=== PATIENT | male | born 1955 | race Caucasian/White ===

== ENCOUNTER → 2018-07-11 12:51 | Outpatient (CLI) | payer OTHER, MEDICAID, SELFPAY ==
--- NOTE | 2018-07-11 12:59 | DI.RAD.S_ITS ---
PROCEDURE: XR CHEST 2V INDICATIONS: shortness of breath TECHNIQUE: 2 views of the chest were acquired. COMPARISON: None. FINDINGS: Surgical changes and devices: None. Lungs and pleura: No pleural effusions or pneumothorax. Lungs are abnormal, with what appears to be dense pneumonia at the right mid and lower lung. No comparison studies are available for review. A component of subpulmonic pleural effusion may be present. Additionally, there is an unusual morphology of the right mediastinal border from the mid chest cephalad. A mass lesion within the lung or mediastinum may be superimposed.. Mediastinum: Mediastinal contours are normal. Heart size is normal. Bones and chest wall: No suspicious bony abnormalities. Soft tissues appear unremarkable. IMPRESSION: Dense consolidation right mid and lower lung, probable subpulmonic significant pleural effusion. Morphology of the right mediastinal border raises a question of whether mass lesion within the lung or mediastinum is present or even whether some form of prior operative procedures such as esophagectomy has been performed. CT scanning with contrast may be warranted depending on the clinical status. As noted above there are no comparison films available to review for this patient. Dictated by: Mitul Mills M.D. on 07/11/2018 at 13:59 Approved by: Mitul Mills M.D. on 07/11/2018 at 14:02
--- NOTE | 2018-08-12 11:28 | ONC.NAV ---
Description: T/C re: care and resource needs Activity: Pt's brother called to request assistance with providing a letter for the [employer] to assist with getting pt's dtr home from the now that pt is on hospice, among other requests. LACE CUTTER called his bridge worker apprentice and asked her to pleases f/u with him with these requests, now that she is helping him with social work needs. Called and left a message for Vlad, the brother, reiterating that the bridge worker apprentice is the person to go to now to assist with these types of needs.
== END ==
PROVIDERS: Visit Provider Physician Assistant
DX: R06.02 Shortness of breath (principal)
CPT/HCPCS: 71046

== ENCOUNTER 2018-07-15 16:24 | Emergency (ER) | payer OTHER, MEDICAID, SELFPAY ==
[2018-07-15 16:28] VITALS: BP 125/77; PULSE 69; RESP 22; TEMP 36.4; O2SAT 96; BMI 24.4
--- NOTE | 2018-07-15 16:32 | DI.RAD.S_ITS ---
PROCEDURE: XR CHEST 2V INDICATIONS: sob TECHNIQUE: 2 views of the chest were acquired. COMPARISON: [facility], CR, XR CHEST 2V, 07/11/2018, 12:57. FINDINGS: Surgical changes and devices: None. Lungs and pleura: Large right-sided pleural effusion is seen with atelectasis of right upper, middle and lower lobes, significantly increased since previous study. Left lung is clear. Mediastinum: Mediastinal contours are normal. Heart size is normal. Bones and chest wall: No suspicious bony abnormalities. Soft tissues appear unremarkable. IMPRESSION: Moderate to large right pleural effusion with atelectasis of right lung significantly increased since previous study. Left lung is clear. Dictated by: Dino Samayoa M.D. on 07/15/2018 at 16:56 Approved by: Dino Samayoa M.D. on 07/15/2018 at 16:57
[2018-07-15 16:48] LABS: Add Manual Diff / Slide Review NO; Basophils Percent Auto 0.6 % (0-2); Eosinophils Percent Auto 1.7 % (2-4); Hematocrit 45.4 % (41-53); Lymphocytes Percent Auto 18.7 % (25-40); Mean Corpuscular HGB Conc 33.1 % (30-36); Mean Corpuscular Hemoglobin 31.9 PG (26-34); Mean Corpuscular Volume 96.2 fL (80-100); Monocytes Percent Auto 10.5 % (3-14); Neutrophils Absolute Auto 8800 /uL (1500-7000); Neutrophils Percent Auto 68.5 % (50-75); Platelet Count 274 X10^3/uL (150-400); Red Blood Cell Count 4.71 X10^6/uL (4.5-5.9); Red Cell Distribution Width 13.1 % (11.6-14.8); White Blood Cell Count 12.8 X10^3/uL (4.5-11.0)
[2018-07-15 17:04] LABS: D Dimer 792 ng/mL (<230)
[2018-07-15 17:05] LABS: BUN Creatinine Ratio 12.1 (6-22); Blood Urea Nitrogen 17 mg/dL (9-20); Calcium 8.8 mg/dL (8.4-10.2); Carbon Dioxide 27 mmol/L (22-32); Chloride 103 mmol/L (98-107); Creatine Kinase 206 U/L (55-170); Estimated Glomerular Filt Rate 51.7 mL/min (>60); Glucose 101 mg/dL (80-110); HEMOLYSIS < 15 (0-50); Potassium 3.6 mmol/L (3.4-5.1); Sodium 140 mmol/L (137-145)
[2018-07-15 17:18] LABS: Troponin I < 0.012 ng/mL (0.01-0.034)
[2018-07-15 17:19] LABS: CKMB % Relative Index 1.3 % (1.5-5.0); Creatine Kinase MB 2.68 ng/mL (<2.37)
[2018-07-15 17:26] LABS: B Type Natriuretic Peptide < 100 (<100)
[2018-07-15 18:00] VITALS: BP 109/66; PULSE 77; RESP 11; O2SAT 96
--- NOTE | 2018-07-15 18:13 | DI.CT.S_ITS ---
PROCEDURE: CT CHEST W CON INDICATIONS: right pleural effuison TECHNIQUE: After the administration of intravenous contrast, 5 mm thick sections acquired from the pulmonary apices to the posterior costophrenic angles. 7 mm thick coronal and sagittal MIP reformats were acquired. For radiation dose reduction, the following was used: automated exposure control, adjustment of mA and/or kV according to patient size. COMPARISON: None. FINDINGS: Image quality: Excellent. Lungs and pleura: The there is a moderate to large right pleural effusion. There are areas of heterogeneous masslike density identified along the medial aspect of the right upper lobe extending into the mediastinum. The overall area of this confluent heterogeneous appearance measures approximately 70 mm AP by 58 mm transverse. This area of confluent mass is causing significant compression and likely potential occlusion and infiltration of the right internal jugular vein as well as mass effect on the proximal left subclavian vein and superior vena cava. Areas of superimposed consolidation is present within the middle and lower lobes. Mediastinum: Heart size is normal. No pericardial effusion. In addition to the above confluent mass extending into the anterior and right mediastinum, there is an anterior right paratracheal mass measuring 39 mm AP by 32 mm transverse. Aorticopulmonary window lymph nodes are also present, the largest measuring 17 mm in short axis. Thoracic aorta and central pulmonary arteries are normal in size. Esophagus is normal in caliber. No hiatal hernia. Bones and chest wall: No suspicious bony lesions. No vertebral body compression fractures. No axillary or supraclavicular adenopathy by size criteria. Thyroid gland is unremarkable. Abdomen: Limited visualization of the upper abdomen demonstrates adenopathy in the aortocaval region with the largest lymph node measuring approximately 20 mm. Otherwise, visualized upper abdominal solid organs appear normal. Upper abdominal bowel loops are normal in caliber. IMPRESSION: 1. Prominant right pleural effusion with right upper lobe heterogeneous appearing mass extending to the mediastinum with vascular compression and suspected infiltration and occlusion as described above. In addition, mediastinal adenopathy is present. Overall appearance is highly concerning for neoplasm with malignant effusion. Dictated by: Dolores Thornton M.D. on 07/15/2018 at 19:23 Approved by: Dolores Thornton M.D. on 07/15/2018 at 19:37
[2018-07-15 18:34] VITALS: BP 116/66; PULSE 75; RESP 19; O2SAT 96
[2018-07-15] MEDS: methylPREDNISolone 125 MG/2 ML VIAL IV (18:48)
[2018-07-15 19:34] VITALS: BP 136/74; PULSE 77; RESP 16; TEMP 36.3; O2SAT 98
[2018-07-15] MEDS: LORazepam 0.5 MG TABLET PO (19:34)
[2018-07-15 20:29] VITALS: BP 108/64; PULSE 74; RESP 18; O2SAT 95
--- NOTE | 2018-07-15 20:38 | ED_ITS ---
HPI - SOB/Dyspnea General Chief Complaint: Shortness of Breath/Dyspnea Stated Complaint: Respiratory distress Time Seen by Provider: 07/15/18 18:06 Source: patient Mode of arrival: ambulatory Limitations: no limitations History of Present Illness Patient is a 62-year-old male who presents with shortness of breath. He says been ongoing since July 07. He was seen and evaluated on July 11 at the walk-in clinic diagnosed with upper respiratory infection. She was started on Levaquin for possible no pneumonia he was encouraged to go to the emergency department for CT of the chest. He has had increasing shortness of breath with exertion. He feels chest heaviness while laying down in certain positions. He fears that he may have cancer. He admits that he smoked for 10 years but has quit. MD Complaint: shortness of breath and cough Related Data Home Medications Medication Instructions Recorded Confirmed No Known Home Medications 07/17/18 07/17/18 Allergies Allergy/AdvReac Type Severity Reaction Status Date / Time pollen extracts Allergy Unknown Verified 07/17/18 15:11 [POLLEN EXTRACTS] Review of Systems Review of Systems GENERAL: Denies chills, fatigue, malaise, fever, sweats, travel HEENT: Denies sinus pain, ear pain, sore throat, difficulty swallowing, neck pain RESPIRATORY: See HPI CARDIOVASCULAR: Denies chest pain, palpitations, orthopnea, edema GASTROINTESTINAL: Denies nausea, vomiting, abdominal pain, diarrhea, constipation, melena. : Denies dysuria, frequency, incontinence, hematuria, urinary retention, flank pain. MUSCULOSKELETAL: Denies weakness, joint pain, or bony pain SKIN: No rash, no erythema, no pruritus NEUROLOGIC: Denies weakness, dizziness, headache, numbness, change in speech, confusion PSYCHIATRIC: No concerning psychosocial issues. 12 point review of systems is negative except for those stated above and HPI [facility] Medical History Patient denies medical problems (Acute) Family History: Reviewed 07/15/18 by KATY Wood Social History Smoking Status: Former smoker Tobacco: How many years used: 10 alcohol intake: never substance use type: does not use Exam Initial Vital Signs Initial Vital Signs: Vital Signs Temperature 97.6 F 07/15/18 16:28 Pulse Rate 69 07/15/18 16:28 Respiratory Rate 22 07/15/18 16:28 Blood Pressure 125/77 07/15/18 16:28 Pulse Oximetry 96 07/15/18 16:28 GENERAL: Well-appearing, well-nourished and in no acute distress. HEENT: Head atraumatic,EOMI, pupils reactive, face symmetric, moist mucous membranes CARDIOVASCULAR: Regular rate and rhythm without murmurs, rubs or gallops. RESPIRATORY: Significantly decreased breath sounds on the right side no respiratory distress speaking in full sentences without difficulty ABDOMEN: Soft, nontender. Normoactive bowel sounds all 4 quadrants. No guarding or rebound.s EXTREMITIES: Normal range of motion, no clubbing or edema. Neurovascularly intact NEUROLOGICAL: Alert and oriented x4.Normal gait and speech. Cranial nerves II through XII grossly intact. SKIN: Warm, dry, no laceration, no petechiae, no rashes or lesions. Course Orders Ordered: Discontinued Medications Lorazepam (Ativan) 0.5 mg PO NOW ONE Stop: 07/15/18 19:06 Last Admin: 07/15/18 19:34 Dose: 0.5 mg Methylprednisolone (Solu-Medrol 125 Mg Vial) 125 mg IV NOW ONE Stop: 07/15/18 18:38 Last Admin: 07/15/18 18:48 Dose: 125 mg Vital Signs - 8 hr 07/15/18 16:28 07/15/18 18:00 07/15/18 18:34 Temperature 97.6 F Pulse Rate 69 77 75 Respiratory Rate 22 11 L 19 Blood Pressure 125/77 Blood Pressure [Left Arm] 109/66 116/66 Blood Pressure [Right Arm] Pulse Oximetry 96 96 96 07/15/18 19:34 07/15/18 20:29 Temperature 97.4 F L Pulse Rate 77 74 Respiratory Rate 16 18 Blood Pressure 136/74 Blood Pressure [Left Arm] Blood Pressure [Right Arm] 108/64 Pulse Oximetry 98 95 MDM - SOB/Dyspnea Medical Records Attestation: I reviewed the patient's medical records. Lab Data Attestation: I reviewed the patient's lab results. Result diagrams: 07/15/18 16:39 07/15/18 16:39 Lab Results 07/15/18 07/15/18 07/15/18 Range/Units 16:39 16:39 16:39 WBC 12.8 H (4.5-11.0) X10^3/uL RBC 4.71 (4.5-5.9) X10^6/uL Hgb 15.0 (13.5-17.5) g/dL Hct 45.4 (41-53) % MCV 96.2 (80-100) fL MCH 31.9 (26-34) PG MCHC 33.1 (30-36) % RDW 13.1 (11.6-14.8) % Plt Count 274 (150-400) X10^3/uL Neut % (Auto) 68.5 (50-75) % Lymph % (Auto) 18.7 L (25-40) % [place] % (Auto) 10.5 (3-14) % Eos % (Auto) 1.7 L (2-4) % Baso % (Auto) 0.6 (0-2) % Neut # (Auto) 8800 H (0843-6343) /uL D-Dimer 792 H (<230) ng/mL Sodium 140 (137-145) mmol/L Potassium 3.6 (3.4-5.1) mmol/L Chloride 103 (98-107) mmol/L Carbon Dioxide 27 (22-32) mmol/L BUN 17 (9-20) mg/dL Creatinine 1.40 H (0.66-1.25) mg/dL Estimated GFR 51.7 L (>60) mL/min BUN/Creatinine Ratio 12.1 (6-22) Glucose 101 (80-110) mg/dL Calcium 8.8 (8.4-10.2) mg/dL Magnesium 2.0 (1.6-2.3) mg/dL Total Creatine Kinase 206 H (55-170) U/L CK-MB (CK-2) 2.68 H (<2.37) ng/mL CK-MB (CK-2) Rel Index 1.3 L (1.5-5.0) % Troponin I < 0.012 (0.01-0.034) ng/mL B-Natriuretic Peptide < 100 (<100) Urine Dip Bedside Urine Glucose Negative Bedside Urine Bilirubin - Negative Bedside Urine Ketone - Negative Urine Specific [place] 1.030 Bedside Urine Occult Blood - Negative Bedside Urine pH 5.5 Bedside Urine Protein +/- 15 Bedside Urine Urobilinogen - Negative Bedside Urine Nitrite - Negative Bedside Urine Leukocytes - Negative Esterase Imaging Data Chest x-ray: Radiologist's impression: PROCEDURE: XR CHEST 2V INDICATIONS: sob TECHNIQUE: 2 views of the chest were acquired. COMPARISON: [facility], , XR CHEST 2V, 07/11/2018, 12:57. FINDINGS: Surgical changes and devices: None. Lungs and pleura: Large right-sided pleural effusion is seen with atelectasis of right upper, middle and lower lobes, significantly increased since previous study. Left lung is clear. Mediastinum: Mediastinal contours are normal. Heart size is normal. Bones and chest wall: No suspicious bony abnormalities. Soft tissues appear unremarkable. IMPRESSION: Moderate to large right pleural effusion with atelectasis of right lung significantly increased since previous study. Left lung is clear. Dictated by: Dino Samayoa M.D. on 07/15/2018 at 16:[address]:: Radiologist's impression: PROCEDURE: CT CHEST W CON INDICATIONS: right pleural effuison TECHNIQUE: After the administration of intravenous contrast, 5 mm thick sections acquired from the pulmonary apices to the posterior costophrenic angles. 7 mm thick coronal and sagittal MIP reformats were acquired. For radiation dose reduction, the following was used: automated exposure control, adjustment of mA and/or kV according to patient size. COMPARISON: None. FINDINGS: Image quality: Excellent. Lungs and pleura: The there is a moderate to large right pleural effusion. There are areas of heterogeneous masslike density identified along the medial aspect of the right upper lobe extending into the mediastinum. The overall area of this confluent heterogeneous appearance measures approximately 70 mm AP by 58 mm transverse. This area of confluent mass is causing significant compression and likely potential occlusion and infiltration of the right internal jugular vein as well as mass effect on the proximal left subclavian vein and superior vena cava. Areas of superimposed consolidation is present within the middle and lower lobes. Mediastinum: Heart size is normal. No pericardial effusion. In addition to the above confluent mass extending into the anterior and right mediastinum, there is an anterior right paratracheal mass measuring 39 mm AP by 32 mm transverse. Aorticopulmonary window lymph nodes are also present, the largest measuring 17 mm in short axis. Thoracic aorta and central pulmonary arteries are normal in size. Esophagus is normal in caliber. No hiatal hernia. Bones and chest wall: No suspicious bony lesions. No vertebral body compression fractures. No axillary or supraclavicular adenopathy by size criteria. Thyroid gland is unremarkable. Abdomen: Limited visualization of the upper abdomen demonstrates adenopathy in the aortocaval region with the largest lymph node measuring approximately 20 mm. Otherwise, visualized upper abdominal solid organs appear normal. Upper abdominal bowel loops are normal in caliber. IMPRESSION: 1. Prominant right pleural effusion with right upper lobe heterogeneous appearing mass extending to the mediastinum with vascular compression and suspected infiltration and occlusion as described above. In addition, mediastinal adenopathy is present. Overall appearance is highly concerning for neoplasm with malignant effusion. Dictated by: Dolores Thornton M.D. on 07/15/2018 at 19:23 ECG Data Attestation: I personally reviewed and interpreted this ECG as follows: Prior ECG tracings: not available for review Interpretation: Normal sinus rhythm rate [address] changes no T-wave inversions ID interval 114 no priors to compare MDM Narrative Medical decision making narrative: Patient has worsening right pleural effusion needs therapeutic and diagnostic thoracentesis. At this time he is hemodynamically stable not requiring oxygen. He is supposed to see Dr. Fam however he has not yet been established. As spoken with Dr. rodríguez, request CT chest will accept patient. Epifanio BURNS in ED to evaluate patient. States that based on CT results he will not accept the patient and states patient needs thoracic surgery consultation. Patient has been updated on CT results. He states he does not want a thoracentesis he does not want surgery he does not want chemo or radiation. He like to go home and put his things in order. He is aware that I am unable to tell him how long he has to live because I do not specifically know what he has or how far advanced but he likely has cancer. He is adamant that he does not want his children to no about his decision. He does not want to suffer through chemotherapy or radiation. He is interested in hospice. I have discussed case with Dr. Chapman for follow-up this week Discharge Plan Departure Patient Disposition: Home Clinical Impression: Pleural effusion on right Discharge Date/Time: 07/15/18 21:30 Interventions: ED Discharge Assessment Last Done: 07/15/18 21:57 Instructions: DI for Lung Cancer Activity Restrictions/Additional Instructions: *You have been diagnosed with right pleural effusion, right-sided lung mass *What to do: It is unknown exactly what to have however cancer is highly likely. Draining the fluid may help relieve some of your symptoms if you choose. *Continue to take medications as directed *Follow up with your primary care provider in 2-3 days *Return to ER if you should have increasing shortness of breath, pain or any new , worsening or concerning symptoms Prescriptions: No Action No Known Home Medications RF: 0 Referrals: Uriel Fam MD [Physician] -
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
[2018-07-15 21:57] VITALS: BP 122/64; PULSE 74; RESP 16; TEMP 36.3; O2SAT 97
== END 2018-07-15 21:30 | disposition home or self-care (01) ==
LOC: ED 18:19 → AC 20:00
PROVIDERS: Emergency Provider Emergency Medicine
DX: J90 Pleural effusion, not elsewhere classified (principal)
CPT/HCPCS: 36591; 71046; 71260; 80048; 81003; 82550; 82553; 83735; 83880; 84484; 85025; 85379; 93005; 93041; 96374; 99285; J2930; Q9967

== ENCOUNTER 2018-07-17 14:48 | Emergency (ER) | payer OTHER, MEDICAID, SELFPAY ==
[2018-07-17 14:57] VITALS: BP 79/61; PULSE 99; RESP 38; TEMP 36.9; O2SAT 90
[2018-07-17 15:00] VITALS: BP 136/81; PULSE 84; RESP 26; O2SAT 98
--- NOTE | 2018-07-17 15:07 | DI.US.S_ITS ---
PROCEDURE: US THORACENTESIS INDICATIONS: large right pleural effusion, dizziness, sob, suspect cancer TECHNIQUE: The indications, alternatives, benefits, risks, and complications of the procedure were explained to the patient. Written informed consent was obtained and placed in the chart. The chest was examined sonographically, and an appropriate site was chosen for thoracentesis. The skin was prepared and draped in the usual sterile fashion, and 1% lidocaine was infiltrated from the skin down through the pleural surface. A 19-gauge catheter-covered needle was then introduced into the pleural space, the catheter was advanced and the needle was withdrawn, and thereafter pleural fluid was aspirated. The catheter was then removed and a dressing was applied. COMPARISON: None. FINDINGS: Access site: Right hemithorax. Needle: One-Step centesis catheter with introducer needle. Fluid volume and description: 2100 mL; bloody Fluid sent for diagnostic testing: Prior orientation Medications: 1% lidocaine for local anaesthesia. Complications: None; post-procedural chest radiograph is pending to assess for pneumothorax. IMPRESSION: Successful ultrasound-guided thoracentesis. Dictated by: Dayne Johnson M.D. on 07/17/2018 at 17:44 Approved by: Dayne Johnson M.D. on 07/17/2018 at 17:45
--- NOTE | 2018-07-17 15:10 | ED_ITS ---
HPI - SOB/Dyspnea General Chief Complaint: Shortness of Breath/Dyspnea Stated Complaint: right side chest states filled with fluid,cant oskar Time Seen by Provider: 07/17/18 15:05 Source: patient Mode of arrival: ambulatory Limitations: no limitations History of Present Illness This is a 62-year-old male who comes to the emergency department with complaint shortness of breath. Patient was here on the diagnosed with a large right pleural effusion and changes on his CT concerning for cancer. This is a brand new diagnosis for the patient. He has had increasing shortness of breath that he really noticed around the and especially on the . Patient is not any fevers. He states he has not had any known medical issues in the past, he was never a tobacco smoker. He states he has not followed regularly with a physician. He seeing Dr. Fam. Today he saw them for follow-up, he was very short of breath and initially when he was here on the and offered thoracentesis he deferred end up going home as he felt that he could make it through to see his physician. Patient gets very winded with even 2 or 3 steps. He denies any chest pain or pressure. He has not had any fevers, no nausea or vomiting. Patient is not on any medications regularly, does not take any blood thinners. Related Data Home Medications Medication Instructions Recorded Confirmed No Known Home Medications 07/17/18 07/17/18 Allergies Allergy/AdvReac Type Severity Reaction Status Date / Time pollen extracts Allergy Unknown Verified 07/17/18 15:11 [POLLEN EXTRACTS] Review of Systems Review of Systems ROS Unobtainable: All systems reviewed & are unremarkable except as noted in HPI and below Constitutional Reports fatigue Cardiovascular Denies chest pain, Denies syncope, Denies edema, Denies leg edema, Reports lightheadedness, Denies radiating jaw, neck or arm pain, Reports dyspnea, Reports dyspnea on exertion and Reports orthopnea Respiratory Denies chest congestion, Denies cough, Reports dyspnea and Reports dyspnea on exertion Gastrointestinal Gastrointestinal: Denies abdominal pain, Denies change in bowel habits, Denies diarrhea, Denies nausea and Denies vomiting Neurologic Denies syncope Endocrine Reports fatigue [facility] Medical History Patient denies medical problems (Acute) Social History Smoking Status: Former smoker Tobacco: How many years used: 10 alcohol intake: never substance use type: does not use Exam Narrative Exam Narrative: GENERAL: Alert and oriented x three, thin, well-appearing male in moderate distress. Patient does appear quite anxious. HEENT: Head normocephalic, atraumatic, EOMI, pupils reactive, face symmetric, moist mucous membranes NECK: Supple, full range of motion CARDIOVASCULAR: Regular rate and rhythm without murmurs, rubs or gallops. No edema bilateral lower extremities. RESPIRATORY: Breath sounds decreased on the right, no wheezes rales or rhonchi. Positive for tachypnea, no accessory muscle use. Patient is able to speak 5- 6 word sentences ABDOMEN: Soft, nontender. Normoactive bowel sounds all 4 quadrants. No guarding or rebound, rigidity, no mass : No CVA tenderness EXTREMITIES: Normal range of motion, no clubbing or edema. Neurovascularly intact NEUROLOGICAL: Cranial nerves II through XII grossly intact. Moving all extremities SKIN: Warm, dry, no petechiae, no rashes or lesions. Initial Vital Signs Initial Vital Signs: Vital Signs Temperature 98.4 F 07/17/18 14:57 Pulse Rate 99 H 07/17/18 14:57 Respiratory Rate 38 H 07/17/18 14:57 Blood Pressure 79/61 L 07/17/18 14:57 Pulse Oximetry 90 L 07/17/18 14:57 Course Orders Ordered: ED Orders 07/17/18 15:05 Consult to Respiratory Therapy Evaluate & Treat 07/17/18 15:06 Basic Metabolic Panel Stat Complete Blood Count AUTO DIFF Stat Partial Thromboplastin Time Stat Prothrombin Time INR Stat 07/17/18 15:07 US thoracentesis Stat 07/17/18 16:47 XR chest 1V Stat 07/17/18 17:31 Amylase Body Fluid Stat Body Fluid Culture Stat Cell Count w Diff Body Fluid Stat Glucose Body Fluid Stat LDH Body Fluid Stat pH Body Fluid Stat Discontinued Medications Morphine Sulfate (Morphine) 2 mg IV NOW ONE Stop: 07/17/18 15:37 Last Admin: 07/17/18 15:37 Dose: 2 mg Vital Signs - 8 hr 07/17/18 14:57 07/17/18 15:00 07/17/18 15:44 Temperature 98.4 F Pulse Rate 99 H 84 88 Respiratory Rate 38 H 26 H 27 H Blood Pressure 79/61 L Blood Pressure [Left Arm] 136/81 118/72 Pulse Oximetry 90 L 98 98 07/17/18 17:32 07/17/18 18:22 Temperature Pulse Rate 74 79 Respiratory Rate 24 22 Blood Pressure Blood Pressure [Left Arm] 120/60 114/61 Pulse Oximetry 94 95 MDM - SOB/Dyspnea Lab Data Attestation: I reviewed the patient's lab results. Result diagrams: 07/17/18 15:06 07/17/18 15:06 Lab Results 07/17/18 07/17/18 07/17/18 Range/Units 15:06 15:06 15:06 WBC 15.9 H (4.5-11.0) X10^3/uL RBC 5.01 (4.5-5.9) X10^6/uL Hgb 16.1 (13.5-17.5) g/dL Hct 47.6 (41-53) % MCV 95.0 (80-100) fL MCH 32.1 (26-34) PG MCHC 33.8 (30-36) % RDW 13.2 (11.6-14.8) % Plt Count 310 (150-400) X10^3/uL Neut % (Auto) 76.7 H (50-75) % Lymph % (Auto) 13.5 L (25-40) % Jessamine % (Auto) 8.6 (3-14) % Eos % (Auto) 0.6 L (2-4) % Baso % (Auto) 0.6 (0-2) % Neut # (Auto) 78198 H (9174-4227) /uL PT 11.8 (10.1-12.7) SECONDS INR 1.0 (0.9-1.3) APTT 31 (26.4-36.2) SECONDS Sodium 138 (137-145) mmol/L Potassium 4.4 (3.4-5.1) mmol/L Chloride 99 (98-107) mmol/L Carbon Dioxide 26 (22-32) mmol/L BUN 19 (9-20) mg/dL Creatinine 1.20 (0.66-1.25) mg/dL Estimated GFR > 60.0 (>60) mL/min BUN/Creatinine Ratio 15.8 (6-22) Glucose 87 (80-110) mg/dL Calcium 9.2 (8.4-10.2) mg/dL Fluid Color Fluid Appearance Fluid pH pH Fluid RBC /uL Fld Tot Nucleated Cell /uL Fluid Polynuclear WBCs % Fluid Mononuclear WBCs % Fluid Eosinophils % Fluid Other Cells % Body Fluid Clot Fluid Glucose mg/dL Fluid LDH U/L Fluid Amylase IU/L 07/17/18 07/17/18 Range/Units 17:31 17:31 WBC (4.5-11.0) X10^3/uL RBC (4.5-5.9) X10^6/uL Hgb (13.5-17.5) g/dL Hct (41-53) % MCV (80-100) fL MCH (26-34) PG MCHC (30-36) % RDW (11.6-14.8) % Plt Count (150-400) X10^3/uL Neut % (Auto) (50-75) % Lymph % (Auto) (25-40) % Jessamine % (Auto) (3-14) % Eos % (Auto) (2-4) % Baso % (Auto) (0-2) % Neut # (Auto) (0739-3223) /uL PT (10.1-12.7) SECONDS INR (0.9-1.3) APTT (26.4-36.2) SECONDS Sodium (137-145) mmol/L Potassium (3.4-5.1) mmol/L Chloride (98-107) mmol/L Carbon Dioxide (22-32) mmol/L BUN (9-20) mg/dL Creatinine (0.66-1.25) mg/dL Estimated GFR (>60) mL/min BUN/Creatinine Ratio (6-22) Glucose (80-110) mg/dL Calcium (8.4-10.2) mg/dL Fluid Color [place] Fluid Appearance Hazy Fluid pH 7.5 pH Fluid RBC 53605 /uL Fld Tot Nucleated Cell 2317 /uL Fluid Polynuclear WBCs 4 % Fluid Mononuclear WBCs 21 % Fluid Eosinophils 0 % Fluid Other Cells 75 % Body Fluid Clot No clots present Fluid Glucose < 20 mg/dL Fluid LDH 5401 U/L Fluid Amylase < 30 IU/L Imaging Data Chest x-ray: Radiologist's impression: [address] [address] XRay Report Signed Patient: Benjie Cowart MR#: [id number] : 1955 Acct:[id number] Age/Sex: 62 / M Date of Service: 07/17/18 Loc: ED Accession Number: [id number] Procedure: XR chest 1V Ordering Provider: Neda Valles D.O. PROCEDURE: XR CHEST 1V INDICATIONS: post-thoracentesis TECHNIQUE: One view of the chest was acquired. COMPARISON: [facility], CR, XR CHEST 2V, 07/11/2018, 12:57. [facility], CR, XR CHEST 2V, 07/15/2018, 16:35. FINDINGS: Surgical changes and devices: None. Lungs and pleura: No pneumothorax. There is a large residual pleural effusion. Mediastinum: Mediastinal contours appear normal. Heart size is normal. Bones and chest wall: No suspicious bony lesions. Overlying soft tissues appear unremarkable. IMPRESSION: No pneumothorax. Dictated by: Dayne Johnson M.D. on 07/17/2018 at 17:24 Approved by: Dayne Johnson M.D. on 07/17/2018 at 17:25 MDM Narrative Medical decision making narrative: Dr. Fam saw the patient today in the office, he called to see if we could arrange thoracentesis or do it herself here in the emergency department. I spoke with Dr. turner they feel they could get him in for ultrasound-guided thoracentesis in the next hour or 2. We reviewed his labs from the 7th he did not have any coags of these were ordered and appear to be in a normal range. Discussed with patient plan for the procedure, possible risks, possible the patient may still need to be admitted. Patient had 2.1 L of bloody effusion removed by Radiology under ultra sound guided thoracentesis. Patient tolerated the procedure well his shortness of breath has improved significantly and he is able to lay down in the bed. He is able to ambulate and his oxygen is in the 93% range without any significant dyspnea. Patient does has some residual effusion which he is aware of. Fluid was sent for cytology and labs. Patient has a follow-up with his primary care doc and a couple days of who sent him here today. He would like to return and has been stable. Patient and I discussed signs and symptoms to watch for and reasons to return. Discharge Plan Departure Patient Disposition: Home Clinical Impression: Pleural effusion on right, Dyspnea Discharge Date/Time: 07/17/18 19:00 Interventions: ED Discharge Assessment Last Done: 07/17/18 19:00 Instructions: DI for Pleural Effusion Activity Restrictions/Additional Instructions: Follow up at your appointment this week with Dr. Fam. The majority of your labs should be back in time for your appointment. Return to the ER for worsening shortness of breath, chest pain, coughing up blood, passing out, persistent vomiting, swelling of her lower extremities, worrisome rash or other new or concerning symptoms. Prescriptions: No Action No Known Home Medications RF: 0 Referrals: Uriel Fam MD [Physician] -
[2018-07-17 15:13] LABS: Add Manual Diff / Slide Review NO; Basophils Percent Auto 0.6 % (0-2); Eosinophils Percent Auto 0.6 % (2-4); Hematocrit 47.6 % (41-53); Hemoglobin 16.1 g/dL (13.5-17.5); Lymphocytes Percent Auto 13.5 % (25-40); Mean Corpuscular HGB Conc 33.8 % (30-36); Mean Corpuscular Hemoglobin 32.1 PG (26-34); Monocytes Percent Auto 8.6 % (3-14); Neutrophils Absolute Auto 12200 /uL (1500-7000); Neutrophils Percent Auto 76.7 % (50-75); Platelet Count 310 X10^3/uL (150-400); Red Blood Cell Count 5.01 X10^6/uL (4.5-5.9); Red Cell Distribution Width 13.2 % (11.6-14.8); White Blood Cell Count 15.9 X10^3/uL (4.5-11.0)
--- NOTE | 2018-07-17 15:13 | PC.NURSE ---
Pt initially hypotensive after exertion. BP repeated and validated. Pt rested on stretcher, resp distress improved w/ oxygen and rest. Very anxious. States he has been having panic attacks. Sitting in high fowlers. BP improved w/o intervention.
[2018-07-17 15:23] LABS: Prothrombin Time 11.8 SECONDS (10.1-12.7)
[2018-07-17 15:26] LABS: PTT Partial Thromboplastin Tim 31 SECONDS (26.4-36.2)
[2018-07-17 15:33] LABS: BUN Creatinine Ratio 15.8 (6-22); Blood Urea Nitrogen 19 mg/dL (9-20); Calcium 9.2 mg/dL (8.4-10.2); Carbon Dioxide 26 mmol/L (22-32); Chloride 99 mmol/L (98-107); Estimated Glomerular Filt Rate > 60.0 mL/min (>60); Glucose 87 mg/dL (80-110); HEMOLYSIS 15 (0-50); Potassium 4.4 mmol/L (3.4-5.1); Sodium 138 mmol/L (137-145)
[2018-07-17] MEDS: MORPHINE 2 MG/ML INJ IV (15:37)
[2018-07-17 15:44] VITALS: BP 118/72; PULSE 88; RESP 27; O2SAT 98
--- NOTE | 2018-07-17 16:47 | DI.RAD.S_ITS ---
PROCEDURE: XR CHEST 1V INDICATIONS: post-thoracentesis TECHNIQUE: One view of the chest was acquired. COMPARISON: [facility], CR, XR CHEST 2V, 07/11/2018, 12:57. [facility], CR, XR CHEST 2V, 07/15/2018, 16:35. FINDINGS: Surgical changes and devices: None. Lungs and pleura: No pneumothorax. There is a large residual pleural effusion. Mediastinum: Mediastinal contours appear normal. Heart size is normal. Bones and chest wall: No suspicious bony lesions. Overlying soft tissues appear unremarkable. IMPRESSION: No pneumothorax. Dictated by: Dayne Johnson M.D. on 07/17/2018 at 17:24 Approved by: Dayne Johnson M.D. on 07/17/2018 at 17:25
--- NOTE | 2018-07-17 16:48 | PC.NURSE ---
1640: Patient to Radiology for thoracentesis.
--- NOTE | 2018-07-17 16:54 | PATH_ITS ---
Note [facility] Accession Number: [id number] TESTS RESULT FLAG UNITS REF RANGE LAB Clinician Provided Cytology Information No. of containers..01 Other (Miscellaneous) [A] 01 PLEURAL FLUID DIAGNOSIS: [A] 02 PLEURAL FLUID POSITIVE FOR MALIGNANT CELLS. IMMUNOHISTOCHEMISTRY STUDIES PENDING FOR FURTHER CHARACTERIZATION; RESULTS WILL BE REPORTED AN ADDENDUM. COMMENT: Results were discussed with Dr. Fam on 07-19-18 at approximately 1:30 p.m. Pathologist ICD10: 02 R91.8 02 Clarice Velasquez MD, Pathologist NPI- [id number] López Chi, Accessories Repairer ([facility]) 01 70 CC, RED, CLOUDY /LCS FLAG LEGEND: L-Low Normal,H-High Normal,LL-Alert Low,HH-Alert High <-Panic Low,>-Panic High,A-Abnormal,AA-Critical Abnormal Performed at: 01 =Z [facility] [address], [place] [address] Tani Galeana MD, 02 LCLWA [facility] [address] [place] [id number] Pina Jernigan MD, Performed at: 01 [facility] [address], [place], [place] [id number] MD Tani Galeana MD Phone: [phone]
--- NOTE | 2018-07-17 17:24 | PATH_ITS ---
Specimen ID: [id number] Control ID: [id number] [facility] PATHOLOGY ONLY [address] [facility] [address] JULIANA JOE [address] [facility] [id number] Patient Details : 1955 Age(y/m/d): Gender: M SSN: [id number] Specimen Details Date collected: 07/17/2018 1724 Local Date received: 07/18/2018 Date entered: 07/18/2018 Date reported: 07/25/2018 1706 ET Physician Details Ordering: Liliane ALVARENGA Referring: ID: [id number] NPI: Tests Ordered: Pleural Fluid Cytology; Fax Report; 91519 Surg Path-1st Site; Please note; IHC 1st AB Stain x1 GLBL; IHC 1st AB Stain x25 GLBL Clinician Provided ICD Code(s) & Clinical History: Clinician Provided Cytology Information: Source: PLEURAL FLUID Number of Containers:01 Other (Miscellaneous) ACC: [id number] PID: [id number] Diagnosis: (02) PLEURAL FLUID POSITIVE FOR MALIGNANT CELLS. IMMUNOHISTOCHEMISTRY STUDIES PENDING FOR FURTHER CHARACTERIZATION; RESULTS WILL BE REPORTED AN ADDENDUM. COMMENT: Results were discussed with Dr. Fam on 07-19-18 at approximately 1:30 p.m. 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 Please see comment. ADDENDUM COMMENT: RESULTS: MANDI: Negative. CK7: Negative. CK 5/6: Negative. Calretinin: Negative. WT1: Negative. D2-40: Negative. SOX10: Negative. Melan-A: Negative. CD45: Negative. Comments: (continued) (02),(03) ADDENDUM: (continued) CK20: Negative. Napsin-A: Negative. TTF1: Negative. P40: Negative. Tyler-EP4: Negative. PAX8: Negative. CD43: Negative. CD20: Negative. ALK: Negative. ERG1: Negative. CD117: Negative. Desmin: Negative. CD31: Rare cells positive. CD138: Focally positive. CD34: Variably positive. ARIANNA-4: Focally positive. OCT3/4: Equivocal. S-100: Negative. By immunohistochemistry, the malignant cells are not of melanoma, carcinoma, neural, mesothelial, or lymphoma origin. The malignant cells are focally and variably immunopositive for CD138, CD31, CD34, and ARIANNA-4. OCT3/ 4 staining is equivocal. Although not definitive by this study, the differential diagnosis includes an epithelioid vascular neoplasm and possibly a germ cell tumor. Tissue sampling is recommended for further characterization. These studies were reviewed and interpretted by my colleague, Dr. Viola Loaiza. Message left with Dr. Fam's office on 07-25-18 at approximately 1:15 p.m. * This test was developed and its performance characteristics determined by [employer]. It has not been cleared or approved by the U.S. Food and Drug Administration. The FDA has determined that such clearance or approval is not necessary. This test is used for clinical purposes. It should not be regarded as investigational or for research. MRV/07/25/2018 Addendum Electronically Signed by Clarice Velasquez MD, Pathologist [id number] A duplicate report has been generated due to demographic update of the patient' s Date of , Age, Gender, and/or Specimen Date. Please review patient results, reference intervals, and calculated results that may have been affected by this change. Please note The date and/or time of collection was not indicated on the requisition as required by state and federal law. The date of receipt of the specimen was used as the collection date if not supplied. Performed by () López Chi, Clinical Secretary (ASCP) Electronically signed by (02) Clarice Velasquez MD, Pathologist NPI- [id number]
[2018-07-17 17:32] VITALS: BP 120/60; PULSE 74; RESP 24; O2SAT 94
[2018-07-17 17:43] LABS: pH Body Fluid 7.5 pH
--- NOTE | 2018-07-17 17:43 | PC.NURSE ---
Patient back from thoracentesis. States his anxiety is gone, breathing slightly better. Oxygen saturation on room air is 94%. Will continue to monitor.
[2018-07-17 17:45] LABS: Body Fluid Red Blood Cells 32744 /uL; Body Fluid Tot Nucleated Cells 2317 /uL
[2018-07-17 17:48] LABS: Amylase Body Fluid < 30 IU/L; Glucose Body Fluid < 20 mg/dL
[2018-07-17 18:06] LABS: LDH Body Fluid 5401 U/L
[2018-07-17 18:11] LABS: Body Fluid Color PINK
[2018-07-17 18:12] LABS: Body Fluid Appearance HAZY; Body Fluid Clotted? NO CLOTS PRESENT; Eosinophils Body Fluid 0 %; Mononuclear WBC Body Fluid 21 %; Polynuclear WBC Body Fluid 4 %
[2018-07-17 18:13] LABS: Other Cells Body Fluid 75 %
[2018-07-17 18:22] VITALS: BP 114/61; PULSE 79; RESP 22; O2SAT 95
== END 2018-07-17 19:00 | disposition home or self-care (01) ==
PROVIDERS: Emergency Provider Emergency Medicine
DX: R06.00 Dyspnea, unspecified (principal)
CPT/HCPCS: 32555; 36591; 71045; 80048; 82150; 82945; 83615; 83986; 85025; 85610; 85730; 87070; 87075; 87205; 89051; 96374; 99283; 99284; J2270

== ENCOUNTER 2018-07-22 04:54 | Inpatient (IN) | payer OTHER, MEDICAID, SELFPAY ==
[2018-07-22] VITALS (23 sets, daily range): BP systolic 91–170; BP diastolic 57–142; PULSE 65–96; RESP 17–28; TEMP 36.6–36.8; O2SAT 88–100; BMI 24.4
--- NOTE | 2018-07-22 | DI.US.S_ITS ---
PROCEDURE: US THORACENTESIS INDICATIONS: RIGHT PLEURAL EFFUSION TECHNIQUE: The indications, alternatives, benefits, risks, and complications of the procedure were explained to the patient. Written informed consent was obtained and placed in the chart. The chest was examined sonographically, and an appropriate site was chosen for thoracentesis. The skin was prepared and draped in the usual sterile fashion, and 1% lidocaine was infiltrated from the skin down through the pleural surface. A 19-gauge catheter-covered needle was then introduced into the pleural space, the catheter was advanced and the needle was withdrawn, and thereafter pleural fluid was aspirated. The catheter was then removed and a dressing was applied. COMPARISON: [facility], THORACENTESIS, 07/17/2018, 16:46. FINDINGS: Access site: Right Needle: One-Step centesis catheter with introducer needle. Fluid volume and description: 2000 cc, dark old blood tinged fluid Fluid sent for diagnostic testing: Not requested, previously performed recently. Medications: 1% lidocaine for local anaesthesia. Complications: None; post-procedural chest radiograph is pending to assess for pneumothorax. IMPRESSION: Successful ultrasound-guided thoracentesis. Dictated by: Mitul Mills M.D. on 07/23/2018 at 10:12 Approved by: Mitul Mills M.D. on 07/23/2018 at 10:16
--- NOTE | 2018-07-22 04:56 | ED_ITS ---
HPI - SOB/Dyspnea <Mark Peterson DO - Last Filed: 07/22/18 18:14> General Chief Complaint: Shortness of Breath/Dyspnea Stated Complaint: DIFFICULTY BREATHING Time Seen by Provider: 07/22/18 04:55 Source: patient Mode of arrival: ambulatory Limitations: no limitations History of Present Illness Patient is a 62-year-old male with known lung malignancy. She was diagnosed within the past week. Has not seen an oncologist. Has had 1 appointment with his new primary doctor. He was scheduled for a CT scan of his abdomen pelvis to further evaluate for possible metastasis later today. He states that over the past couple days he has become progressively short of breath. Patient was seen here in the emergency department within the past week with a right-sided pleural effusion. This was drained under ultrasound guidance by Radiology. He states that his symptoms are now back and potentially even worse than before. He states he would not be able to lay flat for the CT scan. He also states he is having quite a bit of anxiety and discomfort. Related Data Home Medications Medication Instructions Recorded Confirmed diazepam 5 mg PO Q6H PRN 07/22/18 07/22/18 Allergies Allergy/AdvReac Type Severity Reaction Status Date / Time pollen extracts Allergy Unknown Verified 07/17/18 15:11 [POLLEN EXTRACTS] Iodinated Contrast- Oral and AdvReac Vomiting Verified 07/22/18 10:16 IV Dye <Neda Valles DO - Last Filed: 07/22/18 18:36> History of Present Illness This a 8-year-old male known to myself from recent ER visit for shortness of breath. Patient has suspected malignancy with malignant cells on his last fluid analysis from his thoracentesis on July 17. Patient returns today with worsening shortness of breath. He has a known large pleural effusion. Patient has had any fevers, he has not had any syncope. He saw Dr. Fam, his primary care physician who ordered a CT of the chest abdomen pelvis which was supposed to be done this morning for further evaluation his malignancy. Patient has follow-up on Sunday with him. Review of Systems <Mark Peterson DO - Last Filed: 07/22/18 18:14> Constitutional Denies fever(s) Cardiovascular Reports chest pain, Denies leg edema, Reports dyspnea and Reports orthopnea Respiratory Denies cough and Reports dyspnea Gastrointestinal Gastrointestinal: Denies abdominal pain Musculoskeletal Denies myalgias and Denies arthralgias Integumentary/Breasts Denies rash Psychiatric Reports anxiety Hematologic/Lymphatic Comments: Not on anticoagulation Allergic/Immunologic Denies urticaria Exam <Mark Peterson, DO - Last Filed: 07/22/18 18:14> Initial Vital Signs Initial Vital Signs: Vital Signs Pulse Rate 96 H 07/22/18 05:11 Respiratory Rate 24 07/22/18 05:11 Blood Pressure 170/142 H 07/22/18 05:11 Pulse Oximetry 95 07/22/18 05:11 Const General: cooperative, No comfortable (Uncomfortable) and anxious Orientation: alert, awake and oriented x3 HENMT Head: normal to inspection and normocephalic Resp Effort & Inspection: not labored and no respiratory distress Auscultation: diminished lung sounds on the right Cardio Rate: regular rate Rhythm: regular rhythm Pulses: radial pulses present Skin Lesions: no lesions Rashes: no rashes Neuro General: alert, awake and oriented x3 Extrem General: normal to inspection and capillary refill normal Psych Appearance: grossly normal and well kempt Affect: anxious affect <Neda Valles, DO - Last Filed: 07/22/18 18:36> Narrative Exam Narrative: GENERAL: Alert and oriented x three, thin, well-appearing male in moderate distress. HEENT: Head normocephalic, atraumatic, EOMI, pupils reactive, face symmetric, moist mucous membranes NECK: Supple, full range of motion CARDIOVASCULAR: Regular rate and rhythm without murmurs, rubs or gallops. RESPIRATORY: Breath sounds absent on the right, normal breath sounds on the left with no crackles rales or rhonchi. Patient has a healed puncture wounds from prior thoracenteses on his right posterior back. ABDOMEN: Soft, nontender. Normoactive bowel sounds all 4 quadrants. No guarding or rebound, rigidity, no mass EXTREMITIES: Normal range of motion, no clubbing or edema. Neurovascularly intact NEUROLOGICAL: Cranial nerves II through XII grossly intact. Moving all extremities SKIN: Warm, dry, no petechiae, no rashes or lesions. Initial Vital Signs Initial Vital Signs: Vital Signs Pulse Rate 96 H 07/22/18 05:11 Respiratory Rate 24 07/22/18 05:11 Blood Pressure 170/142 H 07/22/18 05:11 Pulse Oximetry 95 07/22/18 05:11 <Neda Valles, DO - Last Filed: 07/22/18 18:36> [facility] [place] Procedure Name of Procedure: PROCEDURE: Thoracentesis, U/S guided. INDICATION: Large pleural effusion, symptomatic and diagnositic PROCEDURE SHIP PILOT: Dr. Valles CONSENT: Consent was obtained from the patient prior to the procedure. Indications, risks, and benefits were explained at length. PROCEDURE SUMMARY: A time out was performed. The patient was prepped and draped in a sterile manner using chlorhexidine scrub after the appropriate level was confirmed by ultrasound. 1% lidocaine was used to numb the region. Needle was advanced without any blood back. Reddish yellow fluid was aspirated The patient had 1750 mL of fluid removed. No immediate complications were noted during the procedure. A post-procedure xray was ordered. The fluid will be sent for studies. ESTIMATED BLOOD LOSS: 5m Complications: None Chest xray-mild improvement but patient continues to have very large right pleural effusion, no pneumothorax appreciated Course <Mark Peterson, DO - Last Filed: 07/22/18 18:14> Orders Ordered: ED Orders 07/22/18 09:38 XR chest 1V Stat 07/22/18 09:42 Comprehensive Metabolic Panel Stat 07/22/18 10:38 CT chest abd pel w con Stat 07/23/18 05:00 Basic Metabolic Panel Routine Complete Blood Count AUTO DIFF Routine Lorazepam (Ativan) 1 mg PO Q4HR PRN PRN Reason: Anxiety Morphine Sulfate (Morphine) 4 mg IV Q4HR PRN PRN Reason: Shortness Of Breath Discontinued Medications Diphenhydramine HCl (Benadryl) 25 mg IV NOW ONE Stop: 07/22/18 09:53 Last Admin: 07/22/18 10:06 Dose: 25 mg Lorazepam (Ativan) 0.5 mg PO NOW ONE Stop: 07/22/18 06:14 Last Admin: 07/22/18 06:14 Dose: 0.5 mg Morphine Sulfate (Morphine) 4 mg IV NOW ONE Stop: 07/22/18 08:25 Last Admin: 07/22/18 08:35 Dose: 4 mg Morphine Sulfate (Morphine) 4 mg IV NOW ONE Stop: 07/22/18 11:12 Last Admin: 07/22/18 11:17 Dose: 4 mg Morphine Sulfate (Morphine) 4 mg IV NOW ONE Stop: 07/22/18 14:40 Last Admin: 07/22/18 14:44 Dose: 4 mg Vital Signs - 8 hr 07/22/18 10:35 07/22/18 11:00 07/22/18 11:30 Temperature Pulse Rate 71 74 78 Respiratory Rate 24 Blood Pressure Blood Pressure [Left Arm] 116/73 123/77 119/77 Pulse Oximetry 95 94 07/22/18 12:00 07/22/18 12:10 07/22/18 12:35 Temperature Pulse Rate 78 65 Respiratory Rate 24 Blood Pressure Blood Pressure [Left Arm] 117/76 120/57 L Pulse Oximetry 94 91 07/22/18 13:00 07/22/18 13:30 07/22/18 14:30 Temperature Pulse Rate 79 80 71 Respiratory Rate Blood Pressure Blood Pressure [Left Arm] 91/62 109/58 L Pulse Oximetry 91 94 07/22/18 14:55 07/22/18 14:58 07/22/18 16:39 Temperature Pulse Rate 94 H 88 79 Respiratory Rate 18 Blood Pressure Blood Pressure [Left Arm] 130/79 Pulse Oximetry 88 L 96 99 07/22/18 16:50 Temperature 97.8 F Pulse Rate 88 Respiratory Rate 19 Blood Pressure 105/70 Blood Pressure [Left Arm] Pulse Oximetry 95 <Neda Valles, - Last Filed: 07/22/18 18:36> Orders Ordered: ED Orders 07/22/18 09:38 XR chest 1V Stat 07/22/18 09:42 Comprehensive Metabolic Panel Stat 07/22/18 10:38 CT chest abd pel w con Stat 07/23/18 05:00 Basic Metabolic Panel Routine Complete Blood Count AUTO DIFF Routine Lorazepam (Ativan) 1 mg PO Q4HR PRN PRN Reason: Anxiety Morphine Sulfate (Morphine) 4 mg IV Q4HR PRN PRN Reason: Shortness Of Breath Discontinued Medications Diphenhydramine HCl (Benadryl) 25 mg IV NOW ONE Stop: 07/22/18 09:53 Last Admin: 07/22/18 10:06 Dose: 25 mg Lorazepam (Ativan) 0.5 mg PO NOW ONE Stop: 07/22/18 06:14 Last Admin: 07/22/18 06:14 Dose: 0.5 mg Morphine Sulfate (Morphine) 4 mg IV NOW ONE Stop: 07/22/18 08:25 Last Admin: 07/22/18 08:35 Dose: 4 mg Morphine Sulfate (Morphine) 4 mg IV NOW ONE Stop: 07/22/18 11:12 Last Admin: 07/22/18 11:17 Dose: 4 mg Morphine Sulfate (Morphine) 4 mg IV NOW ONE Stop: 07/22/18 14:40 Last Admin: 07/22/18 14:44 Dose: 4 mg Vital Signs - 8 hr 07/22/18 10:35 07/22/18 11:00 07/22/18 11:30 Temperature Pulse Rate 71 74 78 Respiratory Rate 24 Blood Pressure Blood Pressure [Left Arm] 116/73 123/77 119/77 Pulse Oximetry 95 94 07/22/18 12:00 07/22/18 12:10 07/22/18 12:35 Temperature Pulse Rate 78 65 Respiratory Rate 24 Blood Pressure Blood Pressure [Left Arm] 117/76 120/57 L Pulse Oximetry 94 91 07/22/18 13:00 07/22/18 13:30 07/22/18 14:30 Temperature Pulse Rate 79 80 71 Respiratory Rate Blood Pressure Blood Pressure [Left Arm] 91/62 109/58 L Pulse Oximetry 91 94 07/22/18 14:55 07/22/18 14:58 07/22/18 16:39 Temperature Pulse Rate 94 H 88 79 Respiratory Rate 18 Blood Pressure Blood Pressure [Left Arm] 130/79 Pulse Oximetry 88 L 96 99 07/22/18 16:50 Temperature 97.8 F Pulse Rate 88 Respiratory Rate 19 Blood Pressure 105/70 Blood Pressure [Left Arm] Pulse Oximetry 95 MDM - SOB/Dyspnea <Mark Peterson DO - Last Filed: 07/22/18 18:14> Lab Data Result diagrams: 07/22/18 08:46 07/22/18 09:42 Lab Results 07/22/18 07/22/18 07/22/18 Range/Units 08:46 08:46 08:46 WBC 18.5 H (4.5-11.0) X10^3/uL RBC 4.83 (4.5-5.9) X10^6/uL Hgb 15.3 (13.5-17.5) g/dL Hct 46.0 (41-53) % MCV 95.2 (80-100) fL MCH 31.7 (26-34) PG MCHC 33.3 (30-36) % RDW 13.1 (11.6-14.8) % Plt Count 269 (150-400) X10^3/uL Neut % (Auto) 78.2 H (50-75) % Lymph % (Auto) 10.1 L (25-40) % [place] % (Auto) 10.2 (3-14) % Eos % (Auto) 1.0 L (2-4) % Baso % (Auto) 0.5 (0-2) % Neut # (Auto) 10240 H (2029-9106) /uL Lymph # (Auto) 1900 (1939-5505) /uL [place] # (Auto) 1900 H (0-900) /uL Eos # (Auto) 200 (0-450) /uL Baso # (Auto) 100 (0-100) /uL PT 12.0 (10.1-12.7) SECONDS INR 1.0 (0.9-1.3) APTT 21 L D (26.4-36.2) SECONDS Sodium Cancelled Potassium Cancelled Chloride Cancelled Carbon Dioxide Cancelled BUN Cancelled Creatinine Cancelled Estimated GFR Cancelled BUN/Creatinine Ratio Cancelled Glucose Cancelled Calcium Cancelled Total Bilirubin Cancelled AST Cancelled ALT Cancelled Alkaline Phosphatase Cancelled Total Protein Cancelled Albumin Cancelled Globulin Cancelled Albumin/Globulin Ratio Cancelled Specimen Hemolysis Cancelled 07/22/18 Range/Units 09:42 WBC (4.5-11.0) X10^3/uL RBC (4.5-5.9) X10^6/uL Hgb (13.5-17.5) g/dL Hct (41-53) % MCV (80-100) fL MCH (26-34) PG MCHC (30-36) % RDW (11.6-14.8) % Plt Count (150-400) X10^3/uL Neut % (Auto) (50-75) % Lymph % (Auto) (25-40) % [place] % (Auto) (3-14) % Eos % (Auto) (2-4) % Baso % (Auto) (0-2) % Neut # (Auto) (0368-2024) /uL Lymph # (Auto) (1916-6020) /uL [place] # (Auto) (0-900) /uL Eos # (Auto) (0-450) /uL Baso # (Auto) (0-100) /uL PT (10.1-12.7) SECONDS INR (0.9-1.3) APTT (26.4-36.2) SECONDS Sodium 131 L Potassium 4.9 Chloride 96 L Carbon Dioxide 25 BUN 20 Creatinine 1.10 Estimated GFR > 60.0 BUN/Creatinine Ratio 18.2 Glucose 89 Calcium 8.8 Total Bilirubin 1.1 AST 33 ALT 29 Alkaline Phosphatase 70 Total Protein 6.5 Albumin 3.5 Globulin 3.0 Albumin/Globulin Ratio 1.2 Specimen Hemolysis Imaging Data Chest x-ray: Attestation: I personally reviewed and interpreted this imaging study as follows: My impression: Right-sided pleural effusion ECG Data Attestation: I personally reviewed and interpreted this ECG as follows: Prior ECG tracings: not available for review Interpretation: Sinus rhythm Ventricular rate in 90 Occasional PVC QRS QTC next ST T wave changes <Neda Valles DO - Last Filed: 07/22/18 18:36> Lab Data Attestation: I reviewed the patient's lab results. Lab Results 07/22/18 07/22/18 07/22/18 Range/Units 08:46 08:46 08:46 WBC 18.5 H (4.5-11.0) X10^3/uL RBC 4.83 (4.5-5.9) X10^6/uL Hgb 15.3 (13.5-17.5) g/dL Hct 46.0 (41-53) % MCV 95.2 (80-100) fL MCH 31.7 (26-34) PG MCHC 33.3 (30-36) % RDW 13.1 (11.6-14.8) % Plt Count 269 (150-400) X10^3/uL Neut % (Auto) 78.2 H (50-75) % Lymph % (Auto) 10.1 L (25-40) % [place] % (Auto) 10.2 (3-14) % Eos % (Auto) 1.0 L (2-4) % Baso % (Auto) 0.5 (0-2) % Neut # (Auto) 31285 H (6861-2971) /uL Lymph # (Auto) 1900 (5622-0221) /uL [place] # (Auto) 1900 H (0-900) /uL Eos # (Auto) 200 (0-450) /uL Baso # (Auto) 100 (0-100) /uL PT 12.0 (10.1-12.7) SECONDS INR 1.0 (0.9-1.3) APTT 21 L D (26.4-36.2) SECONDS Sodium Cancelled Potassium Cancelled Chloride Cancelled Carbon Dioxide Cancelled BUN Cancelled Creatinine Cancelled Estimated GFR Cancelled BUN/Creatinine Ratio Cancelled Glucose Cancelled Calcium Cancelled Total Bilirubin Cancelled AST Cancelled ALT Cancelled Alkaline Phosphatase Cancelled Total Protein Cancelled Albumin Cancelled Globulin Cancelled Albumin/Globulin Ratio Cancelled Specimen Hemolysis Cancelled 07/22/18 Range/Units 09:42 WBC (4.5-11.0) X10^3/uL RBC (4.5-5.9) X10^6/uL Hgb (13.5-17.5) g/dL Hct (41-53) % MCV (80-100) fL MCH (26-34) PG MCHC (30-36) % RDW (11.6-14.8) % Plt Count (150-400) X10^3/uL Neut % (Auto) (50-75) % Lymph % (Auto) (25-40) % [place] % (Auto) (3-14) % Eos % (Auto) (2-4) % Baso % (Auto) (0-2) % Neut # (Auto) (6540-5829) /uL Lymph # (Auto) (0366-2114) /uL [place] # (Auto) (0-900) /uL Eos # (Auto) (0-450) /uL Baso # (Auto) (0-100) /uL PT (10.1-12.7) SECONDS INR (0.9-1.3) APTT (26.4-36.2) SECONDS Sodium 131 L Potassium 4.9 Chloride 96 L Carbon Dioxide 25 BUN 20 Creatinine 1.10 Estimated GFR > 60.0 BUN/Creatinine Ratio 18.2 Glucose 89 Calcium 8.8 Total Bilirubin 1.1 AST 33 ALT 29 Alkaline Phosphatase 70 Total Protein 6.5 Albumin 3.5 Globulin 3.0 Albumin/Globulin Ratio 1.2 Specimen Hemolysis Imaging Data Chest x-ray: Radiologist's impression: [address] [address] XRay Report Signed Patient: Benjie Cowart MR#: [id number] : 1955 Acct:[id number] Age/Sex: 62 / M Date of Service: 07/22/18 Loc: ED Accession Number: [id number] Procedure: XR chest 1V Ordering Provider: Neda Valles D.O. PROCEDURE: XR CHEST 1V INDICATIONS: post thoracentesis TECHNIQUE: One view of the chest was acquired. COMPARISON: [facility], CT, CT CHEST W CON, 07/15/2018, 18:51. [facility], US, US THORACENTESIS, 07/17/2018, 16:46. [facility], , US CHEST, 07/22/2018, 8 :20. [facility], CR, XR CHEST 1V, 07/17/2018, 17:05. [facility], CR, XR CHEST 1V, 07/22/2018, 5:53. FINDINGS: Surgical changes and devices: None. Lungs and pleura: No pneumothorax is seen. There remains a large right-sided pleural effusion. The right lung is slightly better aerated on current study than on the prior. The left lung appears clear. Mediastinum: Cardiac and mediastinal silhouettes are partially obscured, yet are regarded to be stable. Bones and chest wall: Age-appropriate bony degenerative changes are seen. No suspicious bony lesions. Overlying soft tissues appear unremarkable. IMPRESSION: No pneumothorax. Slightly better aerated right lung. Large right sided pleural effusion remaining. Dictated by: Darenll Grant M.D. on 07/22/2018 at 9:12 Approved by: Darnell Grant M.D. on 07/22/2018 at 9:14 CT chest/abd/pelvis: Radiologist's impression: [address] [address] [address] Scan Report Signed Patient: Benjie Cowart MR#: [id number] : 1955 Acct:[id number] Age/Sex: 62 / M Date of Service: 07/22/18 Loc: ED Accession Number: [id number] Procedure: CT chest abd pel w con Ordering Provider: Neda Valles D.O. PROCEDURE: CT CHEST ABD PEL W CON INDICATIONS: malignancy, unknown source, short of breath, large effusion TECHNIQUE: After the administration of oral and intravenous contrast, 5 mm thick sections acquired from the lung apices to the symphysis. 5 mm coronal and sagittal reformats were performed, with additional 7 mm coronal MIP reformats through the lungs. For radiation dose reduction, the following was used: automated exposure control, adjustment of mA and/or kV according to patient size. COMPARISON: [facility], CT, CT CHEST W CON, 07/15/2018, 18:51. [facility], CR, XR CHEST 1V, 07/22/2018, 10:03. FINDINGS: Image quality: Excellent. CHEST: Lungs and pleura: There is a small amount of apparent right pleural gas seen fairly. Differential diagnosis includes pneumothorax or an apical bleb. Apical blebs are seen on the left. There is a large right-sided pleural effusion seen. Nearly all of the right lung is collapsed, with a small amount of aerated lung seen superiorly. There is a confluent mass seen involving the right perihilar region and right mediastinum, which is similar to the recent prior CT study. Mass effect can be seen upon the superior vena cava, which prominently narrows it. No left-sided pleural effusion. No left- sided masses are seen. Mediastinum: Heart size is normal. No pericardial effusion. No mediastinal or hilar adenopathy by size criteria. Thoracic aorta and central pulmonary arteries are normal in size. Esophagus is normal in caliber. No hiatal hernia. Chest wall: No axillary or supraclavicular adenopathy by size criteria. Thyroid gland demonstrates no significant CT abnormality. ABDOMEN: Solid organs: Liver is normal in size and enhancement. Gallbladder wall does not appear thickened. Biliary system is non dilated. Pancreas enhances normally. Spleen is normal in size and enhancement. Generalized thickening is seen of the adrenal glands, yet without focal adrenal nodules. Kidneys demonstrate normal size and enhancement , without hydronephrosis. Peritoneum and bowel: Bowel loops demonstrate normal wall thickness and caliber. No free fluid or air. Incidental note is made of a normal-appearing appendix. Diverticulosis is seen, without findings of active diverticulitis. Nodes and vessels: No retroperitoneal or mesenteric adenopathy by size criteria. Aorta and inferior vena cava are normal in size. Miscellaneous: No ventral hernias. PELVIS: Genitourinary: Bladder wall thickness is normal. Miscellaneous: No inguinal hernias or adenopathy. Bones: No suspicious bony lesions. No vertebral body compression fractures. Degenerative changes are seen throughout, including partial fusion of the sacroiliac joints, left worse than right. IMPRESSION: Continued findings of confluent right perihilar/mediastinal mass, which is believed to represent a primary cancer with associated lymph nodes. There is associated mass effect upon the superior vena cava. Large right-sided pleural effusion. Nearly the entire right lung is collapsed with only a small amount of aeration seen superiorly. There is a small right apical pneumothorax versus a right apical bleb. Left- sided apical blebs can be seen. No definite findings of distant metastatic disease can be seen. Incidental note is made of: Bony degenerative changes, including partial sacroiliac joint fusion Generalized adrenal gland thickening Normal appendix Diverticulosis is seen, without findings of active diverticulitis. Dictated by: Darnell Grant M.D. on 07/22/2018 at 10:26 Approved by: Darnell Grant M.D. on 07/22/2018 at 10:33 chest US: Radiologist's impression: [place] [address] Ultrasound Report Signed Patient: Benjie Cowart MR#: [id number] : 1955 Acct:[id number] Age/Sex: 62 / M Date of Service: 07/22/18 Loc: ED Accession Number: [id number] Procedure: US chest Ordering Provider: Mark Peterson D.O. PROCEDURE: US CHEST COMPARISON: None. INDICATIONS: RIGHT PLEURAL EFFUSION FINDINGS: Right pleural effusion is present. Posterior chest wall skin marker was placed. IMPRESSION: Right pleural effusion with skin marker. Dictated by: Dolores Thornton M.D. on 07/22/2018 at 9:10 Approved by: Dolores Thornton M.D. on 07/22/2018 at 9:11 ECG Data Attestation: I personally reviewed and interpreted this ECG as follows: Interpretation: Sinus rhythm with occasional PVC a ventricular rate of 90 P are 132 QRS 82 and QTC of 380. No ST changes appreciated. MDM Narrative Medical decision making narrative: Patient was signed out to myself for potential thoracentesis with Radiology. They were unavailable, patient's chest x-ray shows almost complete white out of his right lung Um in although he has not been hypoxic is quite uncomfortable and dyspneic. Patient and I discussed doing bedside ultrasound-guided thoracentesis here in the ER and he consents to this. Risks and, contraindications and possible problems were discussed. Patient had ultrasound imaging diagnostic radiology. Patient was prepped, 1.75 L was drained out of the chest disorder yellow bloody fluid. He just recently had diagnostic pleural fluid sent so none was sent today. Patient tolerated the procedure well, he was able to lie flat afterwards a plan to get CT. We did do basic labs which showed a elevated white count but no other major changes other than sodium is slightly low as well as chloride. Patient was given some Benadryl as he had some vomiting with prior CT with iodine in the past. Results were discussed with Dr. Fam. The patient I also discussed possibly a pleural pieces catheter if he continues to have recurrent pleural effusions that need frequent drainage. He is not ready to have that conversation with the CVT surgeon but is aware of the option and that he may be a good candidate. Patient was motivated to return home when he attempted to ambulate to the bathroom he became quite dyspneic. We did ambulatory pulse ox is in the 80% range. We attempted to set him up with home O2 on direction from his primary care doc but are unable to set him up with this tonight. Plan for observation under Dr. Fam who accepts. They will work on further evaluation. We did discuss potential for some additional thoracentesis tomorrow as patient is still having dyspnea with ambulation which oxygen may help but he does have quite a significant amount of fluid in his lungs. Discharge Plan Departure Patient Disposition: Admitted as Observation Clinical Impression: Pleural effusion on right Discharge Date/Time: 07/22/18 16:54 Interventions: ED Discharge Assessment Last Done: 07/22/18 16:54 Admit Date/Time: 07/22/18 16:24 Admit Provider: Uriel Fam
--- NOTE | 2018-07-22 05:12 | DI.RAD.S_ITS ---
PROCEDURE: XR CHEST 1V INDICATIONS: Shortness of breath TECHNIQUE: One view of the chest was acquired. COMPARISON: [facility], CR, XR CHEST 1V, 07/17/2018, 17:05. FINDINGS: Surgical changes and devices: None. Lungs and pleura: There is interval increase in the amount of right-sided pleural effusion with near complete atelectasis of right lung. No significant left-sided pleural effusion. No left sided infiltrate. No gross pneumothorax. Mediastinum: Mediastinal contours appear normal. Heart size is enlarged. Bones and chest wall: No suspicious bony lesions. Overlying soft tissues appear unremarkable. IMPRESSION: Large right pleural effusion with near complete atelectasis of right lung. No left-sided pleural effusion or focal infiltrate. No gross pneumothorax. Dictated by: Dino Samayoa M.D. on 07/22/2018 at 8:46 Approved by: Dino Samayoa M.D. on 07/22/2018 at 8:47
--- NOTE | 2018-07-22 06:06 | DI.US.S_ITS ---
PROCEDURE: US CHEST COMPARISON: None. INDICATIONS: RIGHT PLEURAL EFFUSION FINDINGS: Right pleural effusion is present. Posterior chest wall skin marker was placed. IMPRESSION: Right pleural effusion with skin marker. Dictated by: Dolores Thornton M.D. on 07/22/2018 at 9:10 Approved by: Dolores Thornton M.D. on 07/22/2018 at 9:11
[2018-07-22] MEDS: LORazepam 0.5 MG TABLET PO (06:14)
[2018-07-22] MEDS: MORPHINE 4 MG/ML INJ IV ×5 (08:35→23:41)
[2018-07-22 09:01] LABS: Add Manual Diff / Slide Review NO; Basophils Absolute Auto 100 /uL (0-100); Basophils Percent Auto 0.5 % (0-2); Eosinophils Absolute Auto 200 /uL (0-450); Hemoglobin 15.3 g/dL (13.5-17.5); Lymphocytes Absolute Auto 1900 /uL (1100-4500); Lymphocytes Percent Auto 10.1 % (25-40); Mean Corpuscular HGB Conc 33.3 % (30-36); Mean Corpuscular Hemoglobin 31.7 PG (26-34); Mean Corpuscular Volume 95.2 fL (80-100); Monocytes Absolute Auto 1900 /uL (0-900); Monocytes Percent Auto 10.2 % (3-14); Neutrophils Absolute Auto 14500 /uL (1500-7000); Neutrophils Percent Auto 78.2 % (50-75); Platelet Count 269 X10^3/uL (150-400); Red Blood Cell Count 4.83 X10^6/uL (4.5-5.9); Red Cell Distribution Width 13.1 % (11.6-14.8); White Blood Cell Count 18.5 X10^3/uL (4.5-11.0)
[2018-07-22 09:03] LABS: PTT Partial Thromboplastin Tim 21 SECONDS (26.4-36.2)
--- NOTE | 2018-07-22 09:38 | DI.RAD.S_ITS ---
PROCEDURE: XR CHEST 1V INDICATIONS: post thoracentesis TECHNIQUE: One view of the chest was acquired. COMPARISON: [facility], CT, CT CHEST W CON, 07/15/2018, 18:51. [facility], , US THORACENTESIS, 07/17/2018, 16:46. [facility], US, US CHEST, 07/22/2018, 8:20. [facility], CR, XR CHEST 1V, 07/17/2018, 17:05. [facility], CR, XR CHEST 1V, 07/22/2018, 5:53. FINDINGS: Surgical changes and devices: None. Lungs and pleura: No pneumothorax is seen. There remains a large right-sided pleural effusion. The right lung is slightly better aerated on current study than on the prior. The left lung appears clear. Mediastinum: Cardiac and mediastinal silhouettes are partially obscured, yet are regarded to be stable. Bones and chest wall: Age-appropriate bony degenerative changes are seen. No suspicious bony lesions. Overlying soft tissues appear unremarkable. IMPRESSION: No pneumothorax. Slightly better aerated right lung. Large right sided pleural effusion remaining. Dictated by: Darnell Grant M.D. on 07/22/2018 at 9:12 Approved by: Darnell Grant M.D. on 07/22/2018 at 9:14
[2018-07-22 10:06] LABS: Alanine Aminotransferase 29 IU/L (21-72); Albumin 3.5 g/dL (3.5-5.0); Albumin Globulin Ratio 1.2 (1.0-2.8); Alkaline Phosphatase 70 U/L (38-126); Aspartate Aminotransferase 33 IU/L (17-59); BUN Creatinine Ratio 18.2 (6-22); Bilirubin Total 1.1 mg/dL (0.2-1.3); Blood Urea Nitrogen 20 mg/dL (9-20); Calcium 8.8 mg/dL (8.4-10.2); Carbon Dioxide 25 mmol/L (22-32); Chloride 96 mmol/L (98-107); Estimated Glomerular Filt Rate > 60.0 mL/min (>60); Glucose 89 mg/dL (80-110); HEMOLYSIS 29 (0-50); Potassium 4.9 mmol/L (3.4-5.1); Sodium 131 mmol/L (137-145); Total Protein 6.5 g/dL (6.3-8.2)
[2018-07-22] MEDS: diphenhydrAMINE 50 MG/ML VIAL 25 MG IV (10:06)
--- NOTE | 2018-07-22 10:38 | DI.CT.S_ITS ---
PROCEDURE: CT CHEST ABD PEL W CON INDICATIONS: malignancy, unknown source, short of breath, large effusion TECHNIQUE: After the administration of oral and intravenous contrast, 5 mm thick sections acquired from the lung apices to the symphysis. 5 mm coronal and sagittal reformats were performed, with additional 7 mm coronal MIP reformats through the lungs. For radiation dose reduction, the following was used: automated exposure control, adjustment of mA and/or kV according to patient size. COMPARISON: [facility], CT, CT CHEST W CON, 07/15/2018, 18:51. [facility], CR, XR CHEST 1V, 07/22/2018, 10:03. FINDINGS: Image quality: Excellent. CHEST: Lungs and pleura: There is a small amount of apparent right pleural gas seen fairly. Differential diagnosis includes pneumothorax or an apical bleb. Apical blebs are seen on the left. There is a large right-sided pleural effusion seen. Nearly all of the right lung is collapsed, with a small amount of aerated lung seen superiorly. There is a confluent mass seen involving the right perihilar region and right mediastinum, which is similar to the recent prior CT study. Mass effect can be seen upon the superior vena cava, which prominently narrows it. No left-sided pleural effusion. No left-sided masses are seen. Mediastinum: Heart size is normal. No pericardial effusion. No mediastinal or hilar adenopathy by size criteria. Thoracic aorta and central pulmonary arteries are normal in size. Esophagus is normal in caliber. No hiatal hernia. Chest wall: No axillary or supraclavicular adenopathy by size criteria. Thyroid gland demonstrates no significant CT abnormality. ABDOMEN: Solid organs: Liver is normal in size and enhancement. Gallbladder wall does not appear thickened. Biliary system is non dilated. Pancreas enhances normally. Spleen is normal in size and enhancement. Generalized thickening is seen of the adrenal glands, yet without focal adrenal nodules. Kidneys demonstrate normal size and enhancement, without hydronephrosis. Peritoneum and bowel: Bowel loops demonstrate normal wall thickness and caliber. No free fluid or air. Incidental note is made of a normal-appearing appendix. Diverticulosis is seen, without findings of active diverticulitis. Nodes and vessels: No retroperitoneal or mesenteric adenopathy by size criteria. Aorta and inferior vena cava are normal in size. Miscellaneous: No ventral hernias. PELVIS: Genitourinary: Bladder wall thickness is normal. Miscellaneous: No inguinal hernias or adenopathy. Bones: No suspicious bony lesions. No vertebral body compression fractures. Degenerative changes are seen throughout, including partial fusion of the sacroiliac joints, left worse than right. IMPRESSION: Continued findings of confluent right perihilar/mediastinal mass, which is believed to represent a primary cancer with associated lymph nodes. There is associated mass effect upon the superior vena cava. Large right-sided pleural effusion. Nearly the entire right lung is collapsed with only a small amount of aeration seen superiorly. There is a small right apical pneumothorax versus a right apical bleb. Left-sided apical blebs can be seen. No definite findings of distant metastatic disease can be seen. Incidental note is made of: Bony degenerative changes, including partial sacroiliac joint fusion Generalized adrenal gland thickening Normal appendix Diverticulosis is seen, without findings of active diverticulitis. Dictated by: Darnell Grant M.D. on 07/22/2018 at 10:26 Approved by: Darnell Grant M.D. on 07/22/2018 at 10:33
--- NOTE | 2018-07-22 14:16 | PC.NURSE ---
Taking some time trying to explain pt's situation with his son Epifanio and calling Epifanio back from whereever he went. Was preparing to D/C pt when he needed to urinate and walked from room 1 to the bathroom next to room 5. He desatted to 88% so Dr. Valles decided to contact Dr. Fam again to see about getting pt admitted to the hospital. Son Epifanio is attempting to understand the graveness of his father's situation but it appears that he is overwhelmed and has asked that I talk with his uncle in [place], I said I would be happy to as long as I have the patient's permission to do so. Awaiting new plan from Dr. Valles.
--- NOTE | 2018-07-22 18:38 | PM.HP.1 ---
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 But overall considers himself in good health, until he developed some dyspnea and a bit of cough around the end of the year. He presented to local urgent care, as he has a history of pneumonias about yearly and thought this was 1 they treated him with antibiotics but he did not see any significant improvement so within a few days he presented to the emergency room where he was evaluated 1st with a chest x-ray which showed a large right pleural effusion then with a CT of the chest which showed not only the effusion but also a apical mass in the right lung. They had offered thoracentesis at that time but he refused did as he had an appointment with me within a couple of days and wanted me to be involved in that decision making. So when I saw him a couple of days later he was increasingly dyspnea having a hard time putting more than a couple of words out so we arranged to have him go back to the emergency room and have a ultrasound-guided thoracentesis for both therapeutic and diagnostic purposes. Throughout this process he has maintained at oxygenation although with a lot of effort obviously maintaining 95% or so in the office when we have seen a but increasingly uncomfortable and when I saw it last saw him 3 days ago suggested that if he did get more and more short of breath he should return to the emergency room to consider another effort to remove fluid. So he presented there this morning, early they evaluated found at this time with the O2 saturation below 90 they did attempt another thoracentesis got another 1.7 L out, after the 2 L that were taken out the 1st time at that had very little impact on his breathing. Continued to be quite uncomfortable. They put him on O2 nasal cannula which did not seem to make a lot of difference as far as discomfort goes. We had sought to arrange O2 for home that effort failed and he felt he will get would be more comfortable being admitted. He did find a lot of comfort with a dose of MS while he was in the ER and would like to continue something like that. I did get a call from pathology regarding evaluation of his pleural fluid they indicated that evidence was strong that it was due to malignancy, and hope that they would have something more definitive by today. I have not heard any further word on that yet. Patient initially with this news was quite distraught indicated a preference to just go home with hospice and I but he feels that he has some more reason to pursue this now and is interested in any effort to overcome this problem. However I do discuss with him code status today and he is emphatic that he would not wish to undergo any effort at cardiac resuscitation or intubation. Family history, nothing related to the current hospitalization. Social history lives locally has local family, works in [employer]. Patient History Medical History Tobacco abuse, in remission (Acute) Patient denies medical problems (Acute) Surgical History No history of previous surgery (Acute) Family & Social History Social History: household members children Prior Living Arrangements House Safety & Behavioral: Feels Safe in Current Yes Environment Been Physically Hurt or No Threatened By a Person Suicidal Ideation Description None Suicide Plan Description No Plan Tobacco & Substance use: Smoking Status Former smoker alcohol intake never alcohol intake frequency 0-2 drinks per day Substance Use Type does not use Meds Home Medications Medication Instructions Recorded Confirmed Type diazepam 5 mg PO Q6H PRN 07/22/18 07/22/18 History Allergies Allergy/AdvReac Type Severity Reaction Status Date / Time pollen extracts Allergy Unknown Verified 07/17/18 15:11 [POLLEN EXTRACTS] Iodinated Contrast- Oral and AdvReac Vomiting Verified 07/22/18 10:16 IV Dye Review of Systems Review of Systems All systems reviewed & are unremarkable except as noted in HPI and below Cardiovascular Cardiovascular: Reports shortness of breath Respiratory Respiratory: Reports dyspnea Exam Vital Signs (past 8 hours): - 07/22/18 11:00 07/22/18 11:30 07/22/18 12:00 Temperature Pulse Rate 74 78 78 Respiratory Rate Blood Pressure Blood Pressure [Left Arm] 123/77 119/77 117/76 Pulse Oximetry 94 94 07/22/18 12:10 07/22/18 12:35 07/22/18 13:00 Temperature Pulse Rate 65 79 Respiratory Rate 24 Blood Pressure Blood Pressure [Left Arm] 120/57 L 91/62 Pulse Oximetry 91 91 07/22/18 13:30 07/22/18 14:30 07/22/18 14:55 Temperature Pulse Rate 80 71 94 H Respiratory Rate Blood Pressure Blood Pressure [Left Arm] 109/58 L Pulse Oximetry 94 88 L 07/22/18 14:58 07/22/18 16:39 07/22/18 16:50 Temperature 97.8 F Pulse Rate 88 79 88 Respiratory Rate 18 19 Blood Pressure 105/70 Blood Pressure [Left Arm] 130/79 Pulse Oximetry 96 99 95 Oxygen Delivery Method Room Air Oxygen Flow Rate 2 Narrative Exam Narrative: Fairly healthy-appearing man but in moderate respiratory distress, persistent. Able to string a few words together. Is on nasal cannula for oxygen. HEENT unremarkable normocephalic atraumatic, neck benign without jugular venous distention nor bruit. Chest shows absent breath sounds on the right fairly normal in the left, heart regular rate and rhythm without murmur, abdomen soft nontender nondistended normoactive bowel tones no bruit no mass or jugular venous distention extremities without edema pulses intact neurologically nonfocal Objective Labs Result Diagrams: 07/22/18 08:46 07/22/18 09:42 Labs: Laboratory Results - last 24 hr 07/22/18 07/22/18 07/22/18 08:46 08:46 08:46 WBC 18.5 H RBC 4.83 Hgb 15.3 Hct 46.0 MCV 95.2 MCH 31.7 MCHC 33.3 RDW 13.1 Plt Count 269 Neut % (Auto) 78.2 H Lymph % (Auto) 10.1 L [place] % (Auto) 10.2 Eos % (Auto) 1.0 L Baso % (Auto) 0.5 Neut # (Auto) 39977 H Lymph # (Auto) 1900 [place] # (Auto) 1900 H Eos # (Auto) 200 Baso # (Auto) 100 PT 12.0 INR 1.0 APTT 21 L D Sodium Cancelled Potassium Cancelled Chloride Cancelled Carbon Dioxide Cancelled BUN Cancelled Creatinine Cancelled Estimated GFR Cancelled BUN/Creatinine Ratio Cancelled Glucose Cancelled Calcium Cancelled Total Bilirubin Cancelled AST Cancelled ALT Cancelled Alkaline Phosphatase Cancelled Total Protein Cancelled Albumin Cancelled Globulin Cancelled Albumin/Globulin Ratio Cancelled Specimen Hemolysis Cancelled 07/22/18 09:42 WBC RBC Hgb Hct MCV MCH MCHC RDW Plt Count Neut % (Auto) Lymph % (Auto) [place] % (Auto) Eos % (Auto) Baso % (Auto) Neut # (Auto) Lymph # (Auto) [place] # (Auto) Eos # (Auto) Baso # (Auto) PT INR APTT Sodium 131 L Potassium 4.9 Chloride 96 L Carbon Dioxide 25 BUN 20 Creatinine 1.10 Estimated GFR > 60.0 BUN/Creatinine Ratio 18.2 Glucose 89 Calcium 8.8 Total Bilirubin 1.1 AST 33 ALT 29 Alkaline Phosphatase 70 Total Protein 6.5 Albumin 3.5 Globulin 3.0 Albumin/Globulin Ratio 1.2 Specimen Hemolysis Assessment & Plan (1) Acute respiratory failure: Problem details: Due to next item. Had been managing adequate O2 saturations in till this morning and during the day has been found with O2 sats of 88% on room air. Somewhat better on O2 Current visit: Yes Status: Acute (2) Pleural effusion on right: Problem details: Found to be a malignant effusion with further evaluation pending. Has now had approximately 3.7 L removed but still significant quantity remains, which contributes to above item. Current visit: Yes Status: Acute (3) Mass of upper lobe of right lung: Problem details: The effusion material has provided some initial evidence of cause of this mass, further testing is pending, but still may require getting a piece of tissue for final diagnosis. Presumed cause of the above item which seems to be a fairly aggressive process and may need fairly urgent attention. 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 Solvents another toxins of various nature's are among the exposures. Current visit: Yes Status: Acute Plan: Assessment/Plan Narrative: Admit tonight with O2 will provide some MS for comfort as well as lorazepam as needed. I have asked that a ultrasound-guided thoracentesis be arranged for the morning to see if any further fluid could be removed, or perhaps consideration instead of the chest tube for more persistent removal of this fluid. Anticipating further information from pathology regarding the prior thoracentesis fluid, and anticipating contacting Oncology as soon as we have a better sense of cause. Quality VTE Deep Vein Thrombosis/Pulmonary Embolism Present on Admission: No
--- NOTE | 2018-07-22 18:56 | P.HP_ITS ---
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 But overall considers himself in good health, until he developed some dyspnea and a bit of cough around the end of the year. He presented to local urgent care, as he has a history of pneumonias about yearly and thought this was 1 they treated him with antibiotics but he did not see any significant improvement so within a few days he presented to the emergency room where he was evaluated 1st with a chest x- ray which showed a large right pleural effusion then with a CT of the chest which showed not only the effusion but also a apical mass in the right lung. They had offered thoracentesis at that time but he refused did as he had an appointment with me within a couple of days and wanted me to be involved in that decision making. So when I saw him a couple of days later he was increasingly dyspnea having a hard time putting more than a couple of words out so we arranged to have him go back to the emergency room and have a ultrasound- guided thoracentesis for both therapeutic and diagnostic purposes. Throughout this process he has maintained at oxygenation although with a lot of effort obviously maintaining 95% or so in the office when we have seen a but increasingly uncomfortable and when I saw it last saw him 3 days ago suggested that if he did get more and more short of breath he should return to the emergency room to consider another effort to remove fluid. So he presented there this morning, early they evaluated found at this time with the O2 saturation below 90 they did attempt another thoracentesis got another 1.7 L out , after the 2 L that were taken out the 1st time at that had very little impact on his breathing. Continued to be quite uncomfortable. They put him on O2 nasal cannula which did not seem to make a lot of difference as far as discomfort goes. We had sought to arrange O2 for home that effort failed and he felt he will get would be more comfortable being admitted. He did find a lot of comfort with a dose of MS while he was in the ER and would like to continue something like that. I did get a call from pathology regarding evaluation of his pleural fluid they indicated that evidence was strong that it was due to malignancy, and hope that they would have something more definitive by today. I have not heard any further word on that yet. Patient initially with this news was quite distraught indicated a preference to just go home with hospice and I but he feels that he has some more reason to pursue this now and is interested in any effort to overcome this problem. However I do discuss with him code status today and he is emphatic that he would not wish to undergo any effort at cardiac resuscitation or intubation. Family history, nothing related to the current hospitalization. Social history lives locally has local family, works in [employer]. Patient History Medical History Tobacco abuse, in remission (Acute) Patient denies medical problems (Acute) Surgical History No history of previous surgery (Acute) Family & Social History Social History: household members children Prior Living Arrangements House Safety & Behavioral: Feels Safe in Current Yes Environment Been Physically Hurt or No Threatened By a Person Suicidal Ideation Description None Suicide Plan Description No Plan Tobacco & Substance use: Smoking Status Former smoker alcohol intake never alcohol intake frequency 0-2 drinks per day Substance Use Type does not use Meds Home Medications Medication Instructions Recorded Confirmed Type diazepam 5 mg PO Q6H PRN 07/22/18 07/22/18 History Allergies Allergy/AdvReac Type Severity Reaction Status Date / Time pollen extracts Allergy Unknown Verified 07/17/18 15:11 [POLLEN EXTRACTS] Iodinated Contrast- Oral and AdvReac Vomiting Verified 07/22/18 10:16 IV Dye Review of Systems Review of Systems All systems reviewed & are unremarkable except as noted in HPI and below Cardiovascular Cardiovascular: Reports shortness of breath Respiratory Respiratory: Reports dyspnea Exam Vital Signs (past 8 hours): - 07/22/18 11:00 07/22/18 11:30 07/22/18 12:00 Temperature Pulse Rate 74 78 78 Respiratory Rate Blood Pressure Blood Pressure [Left Arm] 123/77 119/77 117/76 Pulse Oximetry 94 94 07/22/18 12:10 07/22/18 12:35 07/22/18 13:00 Temperature Pulse Rate 65 79 Respiratory Rate 24 Blood Pressure Blood Pressure [Left Arm] 120/57 L 91/62 Pulse Oximetry 91 91 07/22/18 13:30 07/22/18 14:30 07/22/18 14:55 Temperature Pulse Rate 80 71 94 H Respiratory Rate Blood Pressure Blood Pressure [Left Arm] 109/58 L Pulse Oximetry 94 88 L 07/22/18 14:58 07/22/18 16:39 07/22/18 16:50 Temperature 97.8 F Pulse Rate 88 79 88 Respiratory Rate 18 19 Blood Pressure 105/70 Blood Pressure [Left Arm] 130/79 Pulse Oximetry 96 99 95 Oxygen Delivery Method Room Air Oxygen Flow Rate 2 Narrative Exam Narrative: Fairly healthy-appearing man but in moderate respiratory distress, persistent. Able to string a few words together. Is on nasal cannula for oxygen. HEENT unremarkable normocephalic atraumatic, neck benign without jugular venous distention nor bruit. Chest shows absent breath sounds on the right fairly normal in the left, heart regular rate and rhythm without murmur, abdomen soft nontender nondistended normoactive bowel tones no bruit no mass or jugular venous distention extremities without edema pulses intact neurologically nonfocal Objective Labs Result Diagrams: 07/22/18 08:46 07/22/18 09:42 Labs: Laboratory Results - last 24 hr 07/22/18 07/22/18 07/22/18 08:46 08:46 08:46 WBC 18.5 H RBC 4.83 Hgb 15.3 Hct 46.0 MCV 95.2 MCH 31.7 MCHC 33.3 RDW 13.1 Plt Count 269 Neut % (Auto) 78.2 H Lymph % (Auto) 10.1 L [place] % (Auto) 10.2 Eos % (Auto) 1.0 L Baso % (Auto) 0.5 Neut # (Auto) 65749 H Lymph # (Auto) 1900 [place] # (Auto) 1900 H Eos # (Auto) 200 Baso # (Auto) 100 PT 12.0 INR 1.0 APTT 21 L D Sodium Cancelled Potassium Cancelled Chloride Cancelled Carbon Dioxide Cancelled BUN Cancelled Creatinine Cancelled Estimated GFR Cancelled BUN/Creatinine Ratio Cancelled Glucose Cancelled Calcium Cancelled Total Bilirubin Cancelled AST Cancelled ALT Cancelled Alkaline Phosphatase Cancelled Total Protein Cancelled Albumin Cancelled Globulin Cancelled Albumin/Globulin Ratio Cancelled Specimen Hemolysis Cancelled 07/22/18 09:42 WBC RBC Hgb Hct MCV MCH MCHC RDW Plt Count Neut % (Auto) Lymph % (Auto) [place] % (Auto) Eos % (Auto) Baso % (Auto) Neut # (Auto) Lymph # (Auto) [place] # (Auto) Eos # (Auto) Baso # (Auto) PT INR APTT Sodium 131 L Potassium 4.9 Chloride 96 L Carbon Dioxide 25 BUN 20 Creatinine 1.10 Estimated GFR > 60.0 BUN/Creatinine Ratio 18.2 Glucose 89 Calcium 8.8 Total Bilirubin 1.1 AST 33 ALT 29 Alkaline Phosphatase 70 Total Protein 6.5 Albumin 3.5 Globulin 3.0 Albumin/Globulin Ratio 1.2 Specimen Hemolysis Assessment & Plan (1) Acute respiratory failure: Problem details: Due to next item. Had been managing adequate O2 saturations in till this morning and during the day has been found with O2 sats of 88% on room air. Somewhat better on O2 Current visit: Yes Status: Acute (2) Pleural effusion on right: Problem details: Found to be a malignant effusion with further evaluation pending. Has now had approximately 3.7 L removed but still significant quantity remains, which contributes to above item. Current visit: Yes Status: Acute (3) Mass of upper lobe of right lung: Problem details: The effusion material has provided some initial evidence of cause of this mass, further testing is pending, but still may require getting a piece of tissue for final diagnosis. Presumed cause of the above item which seems to be a fairly aggressive process and may need fairly urgent attention. 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 Solvents another toxins of various nature's are among the exposures. Current visit: Yes Status: Acute Plan: Assessment/Plan Narrative: Admit tonight with O2 will provide some MS for comfort as well as lorazepam as needed. I have asked that a ultrasound-guided thoracentesis be arranged for the morning to see if any further fluid could be removed, or perhaps consideration instead of the chest tube for more persistent removal of this fluid. Anticipating further information from pathology regarding the prior thoracentesis fluid, and anticipating contacting Oncology as soon as we have a better sense of cause. Quality VTE Deep Vein Thrombosis/Pulmonary Embolism Present on Admission: No
[2018-07-22] MEDS: SODIUM CHLORIDE 0.9% FLUSH 10 ML IV ×2 (20:38→23:41)
--- NOTE | 2018-07-22 22:18 | PC.ADMIT ---
Admission Note: pt arrived via stretcher. pt very sob with any exertion or talking to give history. Pt uses call light. able to stand and ambulate steady gait, but still placed bed alarm on for severe shortness of breath. Pt cooperative and compliant. pt oriented to room and hospital procedures. Pt uses call light. sons brought food in. pt instructed us to not tell anyone information. will continue to monitor.
[2018-07-23] VITALS (9 sets, daily range): BP systolic 94–127; BP diastolic 54–67; PULSE 70–87; RESP 14–20; TEMP 36.5–36.9; O2SAT 95–96
--- NOTE | 2018-07-23 | DI.RAD.S_ITS ---
PROCEDURE: XR CHEST 1V INDICATIONS: POST THORACENTESIS TECHNIQUE: One view of the chest was acquired. COMPARISON: [facility], CT, CT CHEST ABD PEL W CON, 07/22/2018, 10:46. [facility], CR, XR CHEST 1V, 07/22/2018, 10:03. [facility], CR, XR CHEST 1V, 07/22/2018, 5:53. FINDINGS: Surgical changes and devices: None currently present Lungs and pleura: No left-sided pleural effusions or pneumothorax on the right after right-sided 2 L thoracentesis earlier today. A large right pleural effusion remains, but appreciably improved from the most recent comparison chest plain film. Lungs are clear on the left but largely atelectatic on the right as was also documented during recent prior recent CT scanning yesterday. Mediastinum: Mediastinal contours appear normal on the left but obscured on the right over the middle and lower thirds of the hemithorax. A large right superior mediastinal mass is present, better seen by recent CT scanning with contrast. Heart size is normal. Bones and chest wall: No suspicious bony lesions. Overlying soft tissues appear unremarkable. IMPRESSION: Large right superior mediastinal mass, appreciable decrease in right-sided very large pleural effusion after thoracentesis earlier this morning. No pneumothorax. No mediastinal shift from right to left. Dictated by: Mitul Mills M.D. on 07/23/2018 at 9:18 Approved by: Mitul Mills M.D. on 07/23/2018 at 9:21
[2018-07-23] MEDS: SODIUM CHLORIDE 0.9% FLUSH 10 ML IV (03:39)
[2018-07-23] MEDS: MORPHINE 4 MG/ML INJ IV ×2 (03:39→08:07)
--- NOTE | 2018-07-23 03:47 | PC.NURSE ---
Addendum entered by Alma Dawn R.N. 07/23/18 03:50: Patient again complaining of right flank pain/SOB and rates pain severity at 7/10; medicated with Morphine. Remains on 2L/min oxygen and sat continues at 95%. Original Note: 2345 Patient is alert and oriented. Breath sounds with wheezing in JAR[place] anteriorly and diminished throughout but otherwise CTA. Patient is noticeably SOB with conversation/exertion. On oxygen at 2L/min per NC with sat of 95%. HRR. Denies nausea. BT present and abdomen is soft. Denies dysuria, frequency or urgency. Independent with mobility but have requested patient call for assist when out of bed due to SOB. Complains of 10/10 right flank (back, kidneys, liver) aching pain so medicated with Morphine which also helps alleviate the discomfort with SOB. Is NPO after 0000; patient verbalizes understanding. Fall risk score is moderate; bed alarm is on as reminder to patient to call for assist when getting up.
[2018-07-23 07:04] LABS: Add Manual Diff / Slide Review NO; Basophils Absolute Auto 100 /uL (0-100); Basophils Percent Auto 0.7 % (0-2); Eosinophils Absolute Auto 300 /uL (0-450); Eosinophils Percent Auto 2.8 % (2-4); Hematocrit 45.1 % (41-53); Hemoglobin 15.1 g/dL (13.5-17.5); Lymphocytes Absolute Auto 1900 /uL (1100-4500); Lymphocytes Percent Auto 15.6 % (25-40); Mean Corpuscular HGB Conc 33.4 % (30-36); Mean Corpuscular Hemoglobin 31.8 PG (26-34); Monocytes Absolute Auto 1800 /uL (0-900); Neutrophils Absolute Auto 7900 /uL (1500-7000); Neutrophils Percent Auto 65.9 % (50-75); Platelet Count 216 X10^3/uL (150-400); Red Blood Cell Count 4.75 X10^6/uL (4.5-5.9); Red Cell Distribution Width 12.7 % (11.6-14.8)
[2018-07-23 07:19] LABS: BUN Creatinine Ratio 16.4 (6-22); Blood Urea Nitrogen 18 mg/dL (9-20); Calcium 8.7 mg/dL (8.4-10.2); Carbon Dioxide 28 mmol/L (22-32); Chloride 97 mmol/L (98-107); Estimated Glomerular Filt Rate > 60.0 mL/min (>60); Glucose 79 mg/dL (80-110); HEMOLYSIS < 15 (0-50); Potassium 4.9 mmol/L (3.4-5.1); Sodium 132 mmol/L (137-145)
[2018-07-23] MEDS: LORazepam 1 MG TABLET PO (08:17)
[2018-07-23] MEDS: SODIUM CHLORIDE 0.9% 1,000 ML 21 ML IV (09:44)
[2018-07-23] MEDS: MORPHINE PCA 30 MG/30 ML PCA.VIAL IV ×2 (13:14→21:46)
--- NOTE | 2018-07-23 13:38 | P.PN_ITS ---
Subjective Date Patient Seen: 07/23/18 Time Patient Seen: 08:00 Interval history: Patient seen in follow-up cross coverage for . Really does not feel that much better this morning. No chest pain. No fevers or chills still feeling like he is having difficulty breathing. Had 1.7 L of fluid taken yesterday. CT scan shows mediastinal mass pretty significant with questionable lesions around the pleura. Awaiting pathology. No other significant change or complaint. Exam Vital Signs (past 8 hours): - 07/23/18 08:00 07/23/18 08:25 07/23/18 11:43 Temperature 97.7 F 98.0 F Pulse Rate 81 70 Respiratory Rate 14 16 Blood Pressure 94/55 L 114/61 Pulse Oximetry 96 95 95 Oxygen Delivery Method Nasal Cannula Oxygen Flow Rate 3 Narrative Exam Narrative: Alert male mildly anxious in no acute distress Mucous membranes moist. Lungs are left side clear. Right side with decreased breath sounds at base. Some E to a change on the mid lung field left.. Abdomen soft positive bowel sounds. Heart regular rate and rhythm without murmur. Extremities without edema. Emotionally mildly anxious this morning Objective Labs Result Diagrams: 07/23/18 06:34 07/23/18 06:34 Labs: Laboratory Results - last 24 hr 07/23/18 07/23/18 06:34 06:34 WBC 12.0 H RBC 4.75 Hgb 15.1 Hct 45.1 MCV 95.0 MCH 31.8 MCHC 33.4 RDW 12.7 Plt Count 216 Neut % (Auto) 65.9 Lymph % (Auto) 15.6 L [place] % (Auto) 15.0 H Eos % (Auto) 2.8 Baso % (Auto) 0.7 Neut # (Auto) 7900 H Lymph # (Auto) 1900 [place] # (Auto) 1800 H Eos # (Auto) 300 Baso # (Auto) 100 Sodium 132 L Potassium 4.9 Chloride 97 L Carbon Dioxide 28 BUN 18 Creatinine 1.10 Estimated GFR > 60.0 BUN/Creatinine Ratio 16.4 Glucose 79 L Calcium 8.7 Assessment & Plan Plan: Assessment/Plan Narrative: Acute respiratory failure. Secondary to pleural effusion. Malignant no evidence of infection. Slightly improved on O2. Certainly maintaining his O2 sat but with significant pressure and difficulty breathing. We will drain 2 L today and see how he does. Continue O2. Malignant pleural fluid effusion. Rapidly reaccumulating. I have discussed with surgeons. They do not feel chest tube is appropriate feel that a pleuradex catheter would be the appropriate procedure. We were unable to do that here. Discussed with Radiology. Discussed with [place] they are unable to do [facility] would be probably available tomorrow. Will transfer tomorrow. Discussed with patient and all involved. Hopefully this will reduce his need for recurrent admissions. Lung mass mediastinal mass. Probable primary lung cancer although still awaiting diagnosis. Went to oncology and discussed. They will see today. No change at this time. Decision once fully able to consider treatment and diagnosis is nail down. Hopefully we do not need tissue. Sounds as if pleural effusions has what we need but awaiting pathology. We discussed this with the patient he understands questions answered. We will know mail or once oncology has seen him. Would like Oncology to see him before he goes for drainage. Hopefully treatment will slow his effusion down also. Mildly decreased sodium. Will recheck tomorrow. Code status no code. DVT prophylaxis will start Lovenox. Disposition. Certainly going to be here 48 hr if not longer depending on what we can get set up for drainage. Time Spent With Patient Time with patient: Greater than 35 minutes Quality VTE Deep Vein Thrombosis/Pulmonary Embolism Present on Admission: No
--- NOTE | 2018-07-23 13:40 | P.PN_ITS ---
Subjective Date Patient Seen: 07/23/18 Time Patient Seen: 13:38 Exam Vital Signs (past 8 hours): - 07/23/18 08:00 07/23/18 08:25 07/23/18 11:43 Temperature 97.7 F 98.0 F Pulse Rate 81 70 Respiratory Rate 14 16 Blood Pressure 94/55 L 114/61 Pulse Oximetry 96 95 95 Oxygen Delivery Method Nasal Cannula Oxygen Flow Rate 3 Narrative Exam Narrative: Alert male much less anxious and breathing more comfortably. Lungs with decreased breath sounds at right base but actually ED a changes improved. Seems to be moving air a little better. Chest x-ray shows decreased fluid. Objective Labs Result Diagrams: 07/23/18 06:34 07/23/18 06:34 Labs: Laboratory Results - last 24 hr 07/23/18 07/23/18 06:34 06:34 WBC 12.0 H RBC 4.75 Hgb 15.1 Hct 45.1 MCV 95.0 MCH 31.8 MCHC 33.4 RDW 12.7 Plt Count 216 Neut % (Auto) 65.9 Lymph % (Auto) 15.6 L [place] % (Auto) 15.0 H Eos % (Auto) 2.8 Baso % (Auto) 0.7 Neut # (Auto) 7900 H Lymph # (Auto) 1900 [place] # (Auto) 1800 H Eos # (Auto) 300 Baso # (Auto) 100 Sodium 132 L Potassium 4.9 Chloride 97 L Carbon Dioxide 28 BUN 18 Creatinine 1.10 Estimated GFR > 60.0 BUN/Creatinine Ratio 16.4 Glucose 79 L Calcium 8.7 Assessment & Plan Plan: Assessment/Plan Narrative: Respiratory failure. Patient is improved we will continue pain meds and Ativan await Oncology and possible transfer tomorrow. Quality VTE Deep Vein Thrombosis/Pulmonary Embolism Present on Admission: No
[2018-07-23] MEDS: ENOXAPARIN 40 MG/0.4 ML SYRINGE SUBCUT (14:13)
--- NOTE | 2018-07-23 18:19 | P.CONONC_ITS ---
History of Present Illness - Data of Consult Consult date: 07/23/18 Requesting Physician: Dr Nguyen - Consult Narrative Narrative: Diagnosis: Malignant effusion, likely lung cancer. History of present illness: Benjie Cowart is a 62 year old male who is seen in the hospital. He developed acute onset of severe shortness of breath just prior to '. She was seen in the emergency room. He was treated for a presumed pneumonia with antibiotics. His symptoms did not improve. He then had a thoracentesis done with about 2 L of fluid removed. He had brief improvement in his symptoms but rapid recurrence. She has since been hospitalized and has had 2 further thoracentesis done. Cytology shows malignant cells but additional stains are still pending. CT scan of the chest showed large right-sided effusion with collapse of the right lung. There was a large mass extending into the mediastinum and compressing the superior vena cava. Patient reports that he has not been losing any weight. Up until about 2 weeks ago, he had been quite active. Since then, it has been difficult for him to move around due to dyspnea. His appetite has been low but he has been eating. He denies any nausea or vomiting. No focal numbness or weakness. He has not noted any adenopathy. He denies any fullness or swelling in the head or neck. He has been bothered by a anxiety particularly when shortness of breath is at its worst. His past medical history is otherwise unremarkable. Prior to his admission, he is not taking any medications regularly. He denies any drug allergies. Social history: He is a single father. 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 He has smoked off and on over the years but quit about a year ago. He estimates that when he did smoke a was about a pack a day. He does not drink any alcohol. He denies any exposure to asbestos. I did have exposure to heavy metals well working with the . CC: Uriel Fam MD - Pain Details Pain Intensity: 3 Pain Scale Used: Numeric (1 - 10) Home Medications and Allergies Home Medications Medication Instructions Recorded Confirmed Type diazepam 5 mg PO Q6H PRN 07/22/18 07/22/18 History Allergies Allergy/AdvReac Type Severity Reaction Status Date / Time pollen extracts Allergy Unknown Verified 07/17/18 15:11 [POLLEN EXTRACTS] Iodinated Contrast- Oral and AdvReac Vomiting Verified 07/22/18 10:16 IV Dye Medical History - Medical, Surgical, Family History Medical History: Medical History (Last Updated 07/22/18 @ 18:47 by Uriel Fam MD) Tobacco abuse, in remission Patient denies medical problems Surgical History: Surgical History (Last Updated 07/22/18 @ 18:47 by Uriel Fam MD) No history of previous surgery - Social History Smoking Status: Former smoker Review of Systems Constitutional: no weight loss, no able to conduct usual activities Cardiovascular: dyspnea on exertion, orthopnea, no chest pain Respiratory: shortness of breath, cough Gastrointestinal: change in appetite Exam - Constitutional positive mild distress, positive average body habitus - Routine HEENT Exam Head: Present: normocephalic, atraumatic Eye: Present: EOMI, PERRL. Absent: conjunctival icterus, scleral injection ENT: Present: mucous membranes moist, oropharynx clear - Routine Neck Exam Present: supple. Absent: JVD, lymphadenopathy, thyromegaly - Routine Respiratory Exam Present: decreased breath sounds Comments: He has decreased breath sounds on the right. I do not hear any wheezes or rales. The chest wall is not tender to palpation. - Routine Cardiovascular Exam Present: RRR, S1, S2. Absent: murmur - Routine Abdominal Exam Present: soft, normoactive bowel sounds. Absent: tenderness, organomegaly, mass - Routine Extremities Exam Absent: edema - Routine Back/Spine Exam Back/Spine: Absent: vertebral tenderness - Routine Skin Exam Present: intact. Absent: rash - Routine Neurological Exam Present: alert, oriented X3 - Routine Psychiatric Exam Present: normal affect, normal thought process Results - Labs Laboratory Last Values WBC 12.0 X10^3/uL (4.5-11.0) H 07/23/18 06:34 RBC 4.75 X10^6/uL (4.5-5.9) 07/23/18 06:34 Hgb 15.1 g/dL (13.5-17.5) 07/23/18 06:34 Hct 45.1 % (41-53) 07/23/18 06:34 MCV 95.0 fL (80-100) 07/23/18 06:34 MCH 31.8 PG (26-34) 07/23/18 06:34 MCHC 33.4 % (30-36) 07/23/18 06:34 RDW 12.7 % (11.6-14.8) 07/23/18 06:34 Plt Count 216 X10^3/uL (150-400) 07/23/18 06:34 Neut % (Auto) 65.9 % (50-75) 07/23/18 06:34 Lymph % (Auto) 15.6 % (25-40) L 07/23/18 06:34 [place] % (Auto) 15.0 % (3-14) H 07/23/18 06:34 Eos % (Auto) 2.8 % (2-4) 07/23/18 06:34 Baso % (Auto) 0.7 % (0-2) 07/23/18 06:34 Neut # (Auto) 7900 /uL (3598-9764) H 07/23/18 06:34 Lymph # (Auto) 1900 /uL (1884-2253) 07/23/18 06:34 [place] # (Auto) 1800 /uL (0-900) H 07/23/18 06:34 Eos # (Auto) 300 /uL (0-450) 07/23/18 06:34 Baso # (Auto) 100 /uL (0-100) 07/23/18 06:34 PT 12.0 SECONDS (10.1-12.7) 07/22/18 08:46 INR 1.0 (0.9-1.3) 07/22/18 08:46 APTT 21 SECONDS (26.4-36.2) L D 07/22/18 08:46 Sodium 132 mmol/L (137-145) L 07/23/18 06:34 Potassium 4.9 mmol/L (3.4-5.1) 07/23/18 06:34 Chloride 97 mmol/L (98-107) L 07/23/18 06:34 Carbon Dioxide 28 mmol/L (22-32) 07/23/18 06:34 BUN 18 mg/dL (9-20) 07/23/18 06:34 Creatinine 1.10 mg/dL (0.66-1.25) 07/23/18 06:34 Estimated GFR > 60.0 mL/min (>60) 07/23/18 06:34 BUN/Creatinine Ratio 16.4 (6-22) 07/23/18 06:34 Glucose 79 mg/dL (80-110) L 07/23/18 06:34 Calcium 8.7 mg/dL (8.4-10.2) 07/23/18 06:34 Total Bilirubin 1.1 mg/dL (0.2-1.3) 07/22/18 09:42 AST 33 IU/L (17-59) 07/22/18 09:42 ALT 29 IU/L (21-72) 07/22/18 09:42 Alkaline Phosphatase 70 U/L (38-126) 07/22/18 09:42 Total Protein 6.5 g/dL (6.3-8.2) 07/22/18 09:42 Albumin 3.5 g/dL (3.5-5.0) 07/22/18 09:42 Globulin 3.0 g/dL (1.7-4.1) 07/22/18 09:42 Albumin/Globulin Ratio 1.2 (1.0-2.8) 07/22/18 09:42 Specimen Hemolysis Cancelled 07/22/18 08:46 Assessment and Plan (1) Mass of upper lobe of right lung Problem details: 62-year-old man with malignant effusion. Cytology does confirm carcinoma but further immunohistochemistry is pending. My suspicion is that this represents lung cancer. Mesothelioma is possible but I think less likely. He does have a mass impinging the SVC but does not have any clinical SVC symptoms that I can elicit currently. He is most symptomatic from his effusion. I think he would benefit from placement of a PleurX catheter. If this does in fact flange turner to be non-small cell lung cancer, systemic therapy would be possible. A small portion of a non-small cell lung cancers will have a hazardous materials driver mutations in EGFR, BRAF, ALK or ROS 1. A targeted therapies would have a very high response rate in patients who [place] those mutations. For the majority of patients who do not, chemotherapy with immunotherapy may be an option. Response rates on the order of about 40-50%. Survival can be extended. A small proportion of patients can do much better than average. If this turns out to be small cell lung cancer, response rates with initial chemotherapy are very high with the palliation of symptoms and prolongation of survival. We will await final pathology before determining a more definitive treatment plan. In the meantime, I think it would make sense to proceed with drainage of his pleural fluid. Given the rapid recurrence, PleurX catheter certainly makes sense. Current visit: Yes Status: Acute
--- NOTE | 2018-07-23 22:18 | PC.NURSE ---
1500-- assumed care of pt from outgoing shift. pt asleep at this time. FINANCIAL SPECIALIST on and operational. PT bed alarm on. pt arouses to voice. pt uses call light. o2 on at 2L. tolerating. Pt does get sob with increased pain and or movement. Pt ate some dinner. Pt ambulates steady gait and is able to manipulate IV pole without issue. pt has two sons locally who come and go. Pt cooperative. pt seems to be in a better state today. pt believes that the 2L they drained really helps, but is very worried that it will all come back and does not know how to manage. pt stated that the oncology md came in and spoke with pt and that he really likes him, and pt reported md stated well lets get things in motion. pt bed alarm on. side rails upx2 for pt safety. will continue to monitor.
[2018-07-24] VITALS (14 sets, daily range): BP systolic 92–153; BP diastolic 50–67; PULSE 75–94; RESP 19–20; TEMP 36.4–37; O2SAT 92–97
--- NOTE | 2018-07-24 00:22 | PC.NURSE ---
Addendum entered by Alma Dawn R.N. 07/24/18 06:11: Slept at intervals. States pain is currently 4/10 having used 8.9mg of Morphine via PARKING LOT MANAGER this shift. O2 sat remains 96% on 2L/min oxygen. Does not sound as SOB when talking this morning. Original Note: Patient is alert and oriented. Breath sounds very diminished throughout right lobes with almost no aeration auscultated in right mid/lower lobes. Continues to sound SOB even with conversation but states he feels he is breathing easier. Oxygen at 2L/min per NC with sat of 96%. HRR. BP low at 94/50 but has been trending lower and is asymptomatic. Denies nausea. BT present and abdomen is soft. Denies dysuria, frequency or urgency. Independent with bed mobility, but due to SOB patient has been asked and is agreeable to having staff assist him when he wants to get out of bed. Bandaid to right flank (from thoracentesis) is CDI. States pain in right flank is currently 5/10; agreeable to having continuous infusion of Morphine added to PARKING LOT MANAGER as per MD order. Fall risk score is moderate and bed alarm is activated.
[2018-07-24] MEDS: MORPHINE PCA 30 MG/30 ML PCA.VIAL IV ×3 (06:06→22:49)
--- NOTE | 2018-07-24 08:54 | PM.DS.1 ---
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 Procedures done: Thoracentesis Consults: Oncology, general surgery. Hospital Course: Was admitted through the emergency room where he had presented with worsening dyspnea. He had had 1 prior thoracentesis with a total of 2 L out, with path pending. He had increasing dyspnea despite this so came to the emergency room where an additional 1.7 L were removed but was found with O2 saturations in the mid 80s, while he had been able to maintain good saturations last week. So mostly due to this hypoxia he is referred for admission. Here he was evaluated further and had another 2 L out by thoracentesis yesterday and is feeling more comfortable his O2 saturation on room air is 95% this morning still struggling a bit but clearly feeling improvement. Otherwise has been stable. Discussion including oncology and General surgery included certainly waiting for pathology to be completed before any definitive therapy but is suggestion of a implanted pleural drain could be helpful in preventing these recurrent need for thoracentesis. That procedure is not available in this hospital so is felt that he should be transferred. Talked about that with the patient today again initially he was a little reluctant to have another procedure, offered alternative but ultimately felt that probably would make the most sense especially as we are still waiting for pathology and then will need to work on treatment plan. All of which may take at least another week. He did find significant benefit with IV morphine to aid with both breathing and anxiety. Status at Discharge Cognitive/behavioral status at discharge: Somewhat anxious Functional status at discharge: independent ambulation Overall status at discharge: patient is not back to baseline Time Spent with Patient Greater than 30 minutes Exam Vital Signs (past 8 hours): - 07/24/18 06:08 07/24/18 06:11 07/24/18 07:40 Temperature 98.6 F Pulse Rate 76 Respiratory Rate 19 Blood Pressure 92/51 L Pulse Oximetry 96 96 96 07/24/18 08:14 Temperature Pulse Rate Respiratory Rate Blood Pressure Pulse Oximetry 95 Fraction of Inspired Oxygen 21 Oxygen Delivery Method Room Air Oxygen Flow Rate 0 Objective Labs Result Diagrams: 07/23/18 06:34 07/23/18 06:34 Discharge Plan Discharge Plan Patient Disposition: [facility] Transfer to: [facility] Under care of provider: STEWART hospitalist Discharge comment: Improved breathing after thoracentesis, needs transfer for definitive treatment, planning an implanted pleural draining device. Discharge Med Rec/Prescriptions Prescriptions: Continue diazepam 5 mg tablet 5 mg PO Q6H PRN (Reason: muscle relaxation) RF: 0 Follow up/Referrals: Uriel Fam MD [Physician] - Discharge Health Status Brief summary of current health status: Frail, large pleural effusion presumed malignant, impacting breathing comfort and oxygenation, otherwise healthy. Multidrug resistant organism: No MDRO MDRO Verified by culture: Yes Date verified: 07/24/18 Precautions: [address] Provider Discharge Instructions Diet: Diet as Tolerated Liquid consistency: Normal/Thin Food texture: Regular Skin/Wound/Dressing Care Report to your healthcare provider any signs of infection, such as:: chills, fever, night sweats, increased pain, unusual drainage and unusual redness Discharge Data Attending Provider: Uriel Fam Admit Date/Time: 07/22/18 16:24 Quality VTE Deep Vein Thrombosis/Pulmonary Embolism Present on Admission: No
[2018-07-24] MEDS: SODIUM CHLORIDE 0.9% FLUSH 10 ML IV ×3 (09:34→23:59)
[2018-07-24] MEDS: ENOXAPARIN 40 MG/0.4 ML SYRINGE SUBCUT (09:35)
--- NOTE | 2018-07-24 10:06 | CM.DPC ---
DCP/continued: Reviewed chart. Met with patient explained CM/SW role. Patient alert and oriented at time of visit but appears uncomfortable. 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 Patient hopes to transfer to higher level of care to have drain placed to remove fluid from lung. Patient has family support and plans to d/c home when medically stable from whichever facility he is at. P: Anticipate transfer to higher level of care. Dr. Fam is primary and attending. Fanny ALCAZAR Discharge Planning/Care Management CM Discharge Assessment Start: 07/23/18 15:55 Freq: Status: Active Protocol: Document 07/23/18 15:59 KJS (Rec: 07/23/18 16:13 [id number]) Discharge Planning Assessment Assigned Instrument Maker And Repairer INGE Mcrae Contact Information Alfredo Cowart (son) [phone] Advance Directives? No Advance Directives on File No History Provided By Patient Prior Living Arrangements House Household Members children Comment Reviewed chart. Patient is 62yr old female admitted to [facility] with difficulty breathing. PCP not listed. Primary payor is 1)[facility] 2 )Medicaid. Unable to meet with patient today. MD discussed possibility of transferring to higher level of care. Patient continues to need thoracentesis on regular basis . MD believes placement of drain would be beneficial. Unable to do at this facility. P: CM/SW team to follow closely for needs. Will attempt visit with patient on 07-24-18. Review Status In Process Please Provide Date Initial DC 07/23/18 Assessment Was Performed Next Review Type Continued Stay Review
[2018-07-24] MEDS: LORazepam 2 MG/ML SYRINGE 1 MG IV (23:58)
[2018-07-25] VITALS (10 sets, daily range): BP systolic 103–113; BP diastolic 54–71; PULSE 75–85; RESP 15–20; TEMP 36.4–36.8; O2SAT 89–98
--- NOTE | 2018-07-25 00:11 | PC.NURSE ---
Addendum entered by Alma Dawn R.N. 07/25/18 06:04: Slept most of shift. Very drowsy this morning. When asked about pain denies having pain; has used 3mg of RETAIL SALES VITAMIN CONSULTANT Morphine this shift. Found with NC out and RA sat 89% but once back on oxygen sats again at 96%. Original Note: Patient is alert and oriented. Breath sounds diminished throughout but more diminished on right. Remains SOB even with conversation. On oxygen at 2L/min per NC with sat of 96%. HRR. Denies nausea. BT present and abdomen is soft; has not had BM since 07/21. Denies dysuria, frequency or urgency and is using urinal at bedside. Independent with bed mobility. Due to SOB having patient call for assistance when getting out of bed. States pain is 4/10 in right flank and is using RETAIL SALES VITAMIN CONSULTANT for pain management. Also provided warm blanket to area for additional comfort. Discussed adding back continuous on RETAIL SALES VITAMIN CONSULTANT if pain becomes worse/uncontrolled and patient verbalizes understanding. Medicated with Ativan for anxiety/sleep. Fall risk score is moderate; bed alarm is activated.
[2018-07-25] MEDS: MORPHINE PCA 30 MG/30 ML PCA.VIAL IV ×3 (05:59→20:29)
[2018-07-25] MEDS: SODIUM CHLORIDE 0.9% 500 ML 21 ML IV (06:01)
[2018-07-25] MEDS: LORazepam 2 MG/ML SYRINGE 1 MG IV ×2 (07:48→20:26)
[2018-07-25] MEDS: SODIUM CHLORIDE 0.9% FLUSH 10 ML IV ×2 (07:49→20:26)
[2018-07-25] MEDS: ENOXAPARIN 40 MG/0.4 ML SYRINGE SUBCUT (07:49)
--- NOTE | 2018-07-25 11:03 | DI.RAD.S_ITS ---
PROCEDURE: XR CHEST 1V INDICATIONS: PRE THORACENTESIS CXR , SEE IF HE NEEDED IT TECHNIQUE: One view of the chest was acquired. COMPARISON: [facility], CR, XR CHEST 1V, 07/23/2018, 9:04. FINDINGS: Surgical changes and devices: None. Lungs and pleura: Large right-sided pleural fluid collection is noted. Right lung opacification noted possibly related to compressive atelectasis. Mediastinum: Mediastinal contours appear normal. Heart size is normal. Bones and chest wall: No suspicious bony lesions. Overlying soft tissues appear unremarkable. IMPRESSION: Large right-sided pleural fluid collection. Dictated by: Judi Davis MD, PhD on 07/25/2018 at 14:50 Approved by: Judi Davis MD, PhD on 07/25/2018 at 14:54
--- NOTE | 2018-07-25 11:03 | DI.US.S_ITS ---
PROCEDURE: US THORACENTESIS INDICATIONS: RIGHT PLEURAL EFFUSION TECHNIQUE: The indications, alternatives, benefits, risks, and complications of the procedure were explained to the patient. Written informed consent was obtained and placed in the chart. The chest was examined sonographically, and an appropriate site was chosen for thoracentesis. The skin was prepared and draped in the usual sterile fashion, and 1% lidocaine was infiltrated from the skin down through the pleural surface. A 19-gauge catheter-covered needle was then introduced into the pleural space, the catheter was advanced and the needle was withdrawn, and thereafter pleural fluid was aspirated. The catheter was then removed and a dressing was applied. COMPARISON: [facility], THORACENTESIS, 07/23/2018, 8:29. FINDINGS: Access site: Right hemithorax. Needle: One-Step centesis catheter with introducer needle. Fluid volume and description: 2000 cc of serosanguineous fluid Fluid sent for diagnostic testing: Not requested Medications: 1% lidocaine for local anaesthesia. Complications: None; post-procedural chest radiograph is pending to assess for pneumothorax. IMPRESSION: Successful ultrasound-guided thoracentesis. Dictated by: Evgeny Gustafson M.D. on 07/25/2018 at 15:17 Approved by: Evgeny Gustafson M.D. on 07/25/2018 at 15:18
--- NOTE | 2018-07-25 12:52 | PM.PN.1 ---
Subjective Date Patient Seen: 07/25/18 Time Patient Seen: 12:53 Interval history: Increasing dyspnea overnight. Feeling much the same level of anxiety that he has had in the past. We have been going around about options for this. With the suggestion of a ?PleurX?, which is available at [facility] but they only do it on Sunday and Sunday, more readily available at [facility] but talking to them they tend to be a little more restrictive thus far is along the procedure, saying it is more of a palliative treatment with, with the risk of infection I believe. So begs the question as to whether that is going to be an appropriate option. Still have not heard any further information from pathology as far as final diagnosis. Exam Vital Signs (past 8 hours): - 07/25/18 06:00 07/25/18 06:02 07/25/18 06:03 Temperature 97.6 F Pulse Rate 83 Respiratory Rate 19 Blood Pressure 113/70 Pulse Oximetry 96 89 L 96 07/25/18 07:00 07/25/18 08:00 Temperature 97.7 F Pulse Rate 85 Respiratory Rate 20 Blood Pressure 105/71 Pulse Oximetry 96 97 Fraction of Inspired Oxygen 2 SaO2/FiO2 Ratio 4750 Oxygen Delivery Method Nasal Cannula Oxygen Flow Rate 3 Narrative Exam Narrative: Overall fairly healthy-appearing but with increased respiratory effort down to about 3 words between breaths. HEENT unremarkable neck benign chest shows absent breath sounds on the right have somewhat diminished on left as well heart regular without murmur extremities neurologic is benign Objective Labs Result Diagrams: 07/23/18 06:34 07/23/18 06:34 Assessment & Plan (1) Pleural effusion on right: Problem details: An evidence of recurrence, increasing dyspnea, will do another thoracentesis today as we ponder other options. May still want to consider the PleurX, but still hoping that we will get a definitive diagnosis and treatment can start for the tumor that may also help this problem. Current visit: Yes Status: Acute (2) Mass of upper lobe of right lung: Problem details: Again everything is pending results of the fluid cytology. Of certainly a possibility that they cytology will not be adequate for final diagnosis so need to consider the possibility of a tissue biopsy and consider options for that of her Current visit: Yes Status: Acute (3) Acute respiratory failure: Problem details: Improved but variable depending on above. Will continue O2 as needed. Qualifiers: Respiratory failure complication: Current visit: Yes Status: Acute Plan: Assessment/Plan Narrative: Will get a another thoracentesis today hopefully another 2 L out, and hopefully he will have a significant improvement in his breathing. He would be willing to go home after if his breathing is better. My sense is he is likely to need another thoracentesis in a couple of days even if he is feeling better t then consider PleurX, chest tube, or something else if treatment of the source is not yet possible. Patient remains willing and patient but he remains eager to find some solution. Quality VTE Deep Vein Thrombosis/Pulmonary Embolism Present on Admission: No
--- NOTE | 2018-07-25 13:09 | DI.RAD.S_ITS ---
PROCEDURE: XR CHEST 1V INDICATIONS: fluid on lung TECHNIQUE: One view of the chest was acquired. COMPARISON: [facility], CT, CT CHEST ABD PEL W CON, 07/22/2018, 10:46. [facility], CR, XR CHEST 1V, 07/25/2018, 11:22. FINDINGS: Surgical changes and devices: None. Lungs and pleura: Moderate to large sized right-sided pleural fluid collection is noted. A no pneumothorax identified. Masslike opacity noted in the right upper lobe compatible with known malignancy. Mediastinum: Mediastinal contours appear normal. Heart size is normal. Bones and chest wall: No suspicious bony lesions. Overlying soft tissues appear unremarkable. IMPRESSION: No pneumothorax following thoracentesis. Dictated by: Judi Davis MD, PhD on 07/25/2018 at 14:54 Approved by: Judi Davis MD, PhD on 07/25/2018 at 14:56
--- NOTE | 2018-07-25 14:48 | CM.SWNOTE ---
Following closely. Discussed pt's care needs and DCP w/ GERALD Hebert throughout the day; pt approp. for support from a Palliative Care team. Palliative Care isn't available at [facility] although the current care team can implement strategies used by Palliative Care nurses and social workers; goals of care conversation, update advanced directives, education about disease process and symptom management. GERALD Hebert requesting from Dr Fam that pt remain admitted tonight. Thoracentesis today collected 2 or 3 L , pt fills w/fluid daily and there will not be availability at [facility] for the PleurX catheter to be placed until early next week. GERALD Hebert and RN Coordinator Simin suggest attempt at transfer to [facility] where they can safely manage pt's symptoms and place this catheter for this man's symptom relief. [facility] will not place d/t infection risk according to GERALD Duval. Following closely. I Intend to have a goals of care conversation w/pt if approp. before DC from . [facility]
--- NOTE | 2018-07-25 15:33 | PC.NURSE ---
Pt was anxious and restless in bed today needing 2L O2 via nasal cannula to maintain O2 sats in the low to mid 90's. He desats to upper 80's on RA. LS are absent on the right side with a tight sounding expiratory wheeze in the upper right lobe. He has been administered 1mg IV Ativan this am with good result for his anxiety. He was able to rest peacefully in bed upon reassessment. BUFFER INFLATED PAD of morphine is in use for pain and easing work of breathing. Pt has had his thorocentisis today at 14:00 with a reported 2L fluid removed from his lung. Dr. Fam has discussed with this nurse the idea that the pt will stay at [facility] overnight for monitoring with consideration for transfer to [facility] tomorrow for possible biopsy of lung mass and pluerex catheter placement. Pt has had repeated [place] fluid buildup to his right lung with 4 thorocentesis proceedures preformed this hospitalization.
--- NOTE | 2018-07-25 21:32 | P.CONS_ITS ---
History of Present Illness Date Patient Seen: 07/25/18 Time Patient Seen: 20:03 Chief complaint: DIFFICULTY BREATHING Reason for consult: Pleural effusion lung mass Requesting provider: Uriel Fam Narrative: Patient is a gentleman who presented earlier this month with shortness of breath. He says he gets pneumonia almost every winter and it is treated with antibiotics and goes away. However he was short of breath and feeling severely fatigued and was found to have a large pleural effusion. He also appears to have some centrally located right sided masses. He has undergone multiple pleural taps removing up to 2 L of fluid at a time. The fluid recurs rapidly. The cytology has been nondiagnostic. Thus far 0 ever it does not favor a carcinoma. I was asked to see him to see if he would be amenable to bronchoscopy and possibly place a chest tube or treat his effusion. [facility] Medical History Tobacco abuse, in remission (Acute) Patient denies medical problems (Acute) Surgical History No history of previous surgery (Acute) Social History household members: children Smoking Status: Former smoker Tobacco: How many years used: 10 alcohol intake: never substance use type: does not use Meds Home Medications Medication Instructions Recorded Confirmed Type diazepam 5 mg PO Q6H PRN 07/22/18 07/22/18 History Allergies Allergy/AdvReac Type Severity Reaction Status Date / Time pollen extracts Allergy Unknown Verified 07/17/18 15:11 [POLLEN EXTRACTS] Iodinated Contrast- Oral and AdvReac Vomiting Verified 07/22/18 10:16 IV Dye Review of Systems Review of Systems Fatigued. No new skin lesions. All of his concentration is on his shortness of breath and breathing. No central chest pain or heart disease he is aware of. No black or bloody bowel movements. No seizures or blackouts. Exam Vital Signs (past 8 hours): - 07/25/18 16:05 07/25/18 19:30 07/25/18 19:49 Temperature 98.3 F 98.3 F Pulse Rate 75 75 Respiratory Rate 15 18 Blood Pressure 103/54 L 103/58 L Pulse Oximetry 97 97 Fraction of Inspired Oxygen 2 SaO2/FiO2 Ratio 4750 Oxygen Delivery Method Nasal Cannula Oxygen Flow Rate 2 Narrative Exam Narrative: Operative short winded gentleman in mild distress from breathing. His eyes are nonicteric. Pupils equal round reactive to light. There are no nodes in the neck supraclavicular axillary or groin areas. His lungs decreased breath sounds on the right as compared with the left. Heart regular rate and rhythm without murmur gallop. No bruit in the neck. Abdomen is scaphoid soft nontender without mass. No ventral hernias. Patient has no testicular masses. Penis is without lesion. No obvious hernias appreciated in the groins. Objective ECG Impression: CT is reviewed. Large right pleural effusion. Post the lung is collapsed. There is a mediastinal mass somewhat irregular but probably extra bronchial. Most of the right-sided bronchus or collapsed because the lung is collapsed. This mass was not felt to be amenable to radiologic biopsy. Labs Result Diagrams: 07/23/18 06:34 07/23/18 06:34 Assessment & Plan Plan: Assessment/Plan Narrative: Patient with a large right pleural effusion that is recurrent despite multiple thoracentesis ease and a lung mass. I talked to the patient about taking him to the operating Room putting him to sleep and performing a chest tube placement to evacuate the fluid from his chest and hopefully re-expand his lung at least in part and also perform a bronchoscopy to see if there is any lesion that I can biopsy. He is amenable to both. At this time he would rather not be resuscitated. I talked to him about small risk that is he the could end up on a ventilator or he could have a heart problem. He does not wish to be on a ventilator and does not wish to be revived at this time. Should treatment for this lesion occurred be successful he could changes mind. He stated this in front of his children 2 boys and I told him that we would honor his wishes.
[2018-07-26] VITALS (21 sets, daily range): BP systolic 80–126; BP diastolic 49–73; PULSE 68–94; RESP 14–21; TEMP 36–36.8; O2SAT 88–100; BMI 23.9
--- NOTE | 2018-07-26 | DI.RAD.S_ITS ---
PROCEDURE: XR CHEST 1V INDICATIONS: Post chest tube and bronchoscopy TECHNIQUE: One view of the chest was acquired. COMPARISON: [facility], , XR CHEST 1V, 07/25/2018, 14:24. FINDINGS: Surgical changes and devices: There has been interval placement of right-sided chest tube with distal tip projecting over the medial right upper lobe. Lungs and pleura: Areas of opacity remain in the right upper and lower lobes although markedly improved compared to prior exam. Mild pneumothorax is present. No midline shift. Mediastinum: Mediastinal contours appear normal. Heart size is normal. Bones and chest wall: No suspicious bony lesions. Right-sided lateral chest wall soft tissues demonstrate subcutaneous emphysema secondary to chest tube insertion. IMPRESSION: Interval improvement of loculated opacities within the right lobe with right chest tube placement and mild right pneumothorax. Dictated by: Dolores Thornton M.D. on 07/26/2018 at 16:28 Approved by: Dolores Thornton M.D. on 07/26/2018 at 16:33
--- NOTE | 2018-07-26 | PATH_ITS ---
Note [facility] Accession Number: [id number] TESTS RESULT FLAG UNITS REF RANGE LAB Clinician Provided Cytology Information No. of containers..01 Other (Miscellaneous) R CHEST FLUID DIAGNOSIS: 02 RIGHT CHEST FLUID INCONCLUSIVE. THIS INTERPRETATION INCLUDES EVALUATION OF A CELL BLOCK. COMMENT The slides contain mostly blood, with rare, slightly larger cells with irregular nuclear borders and prominent nucleoli. These rare cells do not have dark hyperchromatic nuclei or mitotic activity like the cells seen in the prior pleural fluid from July 17 ([id number]). A distinct population of malignant cells is not identified. Pathologist ICD10: 02 R91.8 02 Pina Jernigan MD, Pathologist NPI- [id number] Blaine Avery, Radiology Specialist ([facility]) 01 900 CC, RED, CLOUDY /LCS FLAG LEGEND: L-Low Normal,H-High Normal,LL-Alert Low,HH-Alert High <-Panic Low,>-Panic High,A-Abnormal,AA-Critical Abnormal Performed at: 01 =Z [facility] [address], [place] [address] Tani Galeana MD, 02 [facility] [address] [place] [id number] Pina Jernigan MD, Performed at: 01 [facility] [address], [place], [place] [id number] MD Tani Galeana MD Phone: [phone]
--- NOTE | 2018-07-26 00:45 | PC.NURSE ---
Addendum entered by Alma Dawn R.N. 07/26/18 06:20: Is aware he is now NPO for procedure later today. Remains SOB with sat of 93% on 2L oxygen. States pain is 2-3/10 and has used 6mg of MANAGER HARBOR Morphine this shift. Original Note: Patient is alert and oriented although initially thought it was 12:30 pm rather than a.m. Breath sounds diminished right more than left and has expiratory wheezes in bilateral upper lobes and inspiratory crackles in left LL. Very minimal aeration auscultated in right LL. Also has audible expiratory wheezing after being up to bathroom. Is still SOB even with conversation. RA sat 92% on oxygen at 2L/min per NC. HRR. Denies nausea. BT present and is passing flatus but has not had a BM since 07/21 which he states is not unusual. Voiding without difficulty. Able to turn himself in bed but is weak so walks to bathroom with 1 assist; was unsteady when up. States pain now is 4-5/10 but at bedside shift reports had stated I don't know when asked about pain; encouraged to utilize MANAGER HARBOR for pain management. Is drowsy related to receiving Ativan on previous shift. Fall risk score is moderate; bed alarm is activated. Is aware of plan for surgery later today and that he will be NPO after 0600.
[2018-07-26] MEDS: SODIUM CHLORIDE 0.9% 500 ML 21 ML IV (03:45)
[2018-07-26] MEDS: MORPHINE PCA 30 MG/30 ML PCA.VIAL IV ×3 (06:18→21:40)
[2018-07-26 07:33] LABS: Add Manual Diff / Slide Review NO; Basophils Absolute Auto 100 /uL (0-100); Basophils Percent Auto 0.5 % (0-2); Eosinophils Absolute Auto 200 /uL (0-450); Eosinophils Percent Auto 1.9 % (2-4); Hematocrit 41.8 % (41-53); Hemoglobin 13.8 g/dL (13.5-17.5); Lymphocytes Absolute Auto 1700 /uL (1100-4500); Lymphocytes Percent Auto 15.1 % (25-40); Mean Corpuscular HGB Conc 33.1 % (30-36); Mean Corpuscular Hemoglobin 31.3 PG (26-34); Mean Corpuscular Volume 94.6 fL (80-100); Monocytes Absolute Auto 1600 /uL (0-900); Monocytes Percent Auto 14.4 % (3-14); Neutrophils Absolute Auto 7600 /uL (1500-7000); Neutrophils Percent Auto 68.1 % (50-75); Platelet Count 241 X10^3/uL (150-400); Red Blood Cell Count 4.42 X10^6/uL (4.5-5.9); Red Cell Distribution Width 12.5 % (11.6-14.8); White Blood Cell Count 11.1 X10^3/uL (4.5-11.0)
[2018-07-26 07:46] LABS: Blood Urea Nitrogen 16 mg/dL (9-20); Calcium 8.4 mg/dL (8.4-10.2); Carbon Dioxide 27 mmol/L (22-32); Chloride 98 mmol/L (98-107); Estimated Glomerular Filt Rate > 60.0 mL/min (>60); Glucose 75 mg/dL (80-110); HEMOLYSIS < 15 (0-50); Potassium 4.5 mmol/L (3.4-5.1); Sodium 132 mmol/L (137-145)
--- NOTE | 2018-07-26 09:11 | P.PN_ITS ---
Subjective Date Patient Seen: 07/26/18 Time Patient Seen: 09:06 Interval history: Visited last night after his thoracentesis he did not feel any significant improvement at that time. This morning though he seems a bit more comfortable. General surgery as indicated a willingness to attempt bronchoscopy for biopsy and also to place a chest tube this should help a lot with patient's comfort and speed the process of diagnosis. He feels good about that no other concerns at this time still quite weak. I reviewed most recent report from pathology regarding status of the fluid cytology. Exam Vital Signs (past 8 hours): - 07/26/18 03:53 Temperature 97.9 F Pulse Rate 73 Respiratory Rate 18 Blood Pressure 95/49 L Pulse Oximetry 93 Fraction of Inspired Oxygen 2 SaO2/FiO2 Ratio 4750 Oxygen Delivery Method Nasal Cannula Oxygen Flow Rate 2 Narrative Exam Narrative: Lying quietly in bed still some increased respiratory effort but less than recent. HEENT unremarkable neck is benign chest still shows decreased breath sounds on right but otherwise stable. Heart regular abdomen benign extremities neurologic benign Objective Labs Result Diagrams: 07/26/18 06:34 07/26/18 06:34 Labs: Laboratory Results - last 24 hr 07/26/18 07/26/18 06:34 06:34 WBC 11.1 H RBC 4.42 L Hgb 13.8 Hct 41.8 MCV 94.6 MCH 31.3 MCHC 33.1 RDW 12.5 Plt Count 241 Neut % (Auto) 68.1 Lymph % (Auto) 15.1 L [place] % (Auto) 14.4 H Eos % (Auto) 1.9 L Baso % (Auto) 0.5 Neut # (Auto) 7600 H Lymph # (Auto) 1700 [place] # (Auto) 1600 H Eos # (Auto) 200 Baso # (Auto) 100 Sodium 132 L Potassium 4.5 Chloride 98 Carbon Dioxide 27 BUN 16 Creatinine 1.00 Estimated GFR > 60.0 BUN/Creatinine Ratio 16.0 Glucose 75 L Calcium 8.4 Assessment & Plan (1) Mass of upper lobe of right lung: Problem details: Pathology indicates a list of what they feel the mass is not, including melanoma carcinoma lymphoma or mesothelioma, but based on what they can see they suspect either avascular sarcoma or a seminoma. They do not feel get any more specific information and advise a tissue biopsy. Have spoken with General surgery they feel they should be able to access an adequate sample from bronchoscopy. Hopefully that will be processed quickly will get a diagnosis and we could begin treatment. Current visit: Yes Status: Acute (2) Pleural effusion on right: Problem details: Fourth thoracentesis yesterday now total of nearly 8 L out seemed to help some but has clearly shown that this is a rapidly reaccumulating process. General surgery has indicated that they would be willing to place a chest tube which should help this quite a lot for both comfort and general management. Then as soon as we can get the diagnosis and treatment started that should hopefully ameliorate the need Current visit: Yes Status: Acute (3) Acute respiratory failure: Problem details: Improved but variable depending on above. Will continue O2 as needed. Qualifiers: Respiratory failure complication: Current visit: Yes Status: Acute Plan: Assessment/Plan Narrative: Procedures will be done today anticipating at least another day to monitor that then perhaps home later in the week end. That is a waiting game for pathology and options for treatment. Continue to follow the labs. Quality VTE Deep Vein Thrombosis/Pulmonary Embolism Present on Admission: No
[2018-07-26] MEDS: LACTATED RINGERS 1,000 ML 42 ML IV (13:52)
[2018-07-26] MEDS: CEFAZOLIN 2 GM/100 ML FROZ.PIGGY IV (14:30)
--- NOTE | 2018-07-26 14:39 | PC.NURSE ---
Pt to surgery at around 1315. Pt on room air during the shift with O2 sats around 93%. Complaining of the effort it takes to breathe at this time. Used 6.8 mg of Morphine [employer]INE[employer] this shift.
--- NOTE | 2018-07-26 14:44 | SUR.OPER ---
Supine on padded OR bed, head on pillow, arms secured on padded arm boards at <90 degrees abduction, legs uncrossed, safety belt at thigh, tape over blanket over lower legs.
[2018-07-26] MEDS: HEPARIN 5,000 UNIT/ML VIAL 5000 UNIT IV (15:09)
--- NOTE | 2018-07-26 15:56 | PM.OP.1 ---
Operative Date/Time/Diagnoses Date of procedure: 07/26/18 Time of procedure: 15:31 Pre-op diagnosis: Right pleural effusion. Lung mass. Diagnosis unclear. Post-op diagnosis: same Procedure & Clinicians Procedure: Placement of right-sided chest tube. Bronchoscopy. Same procedure as scheduled: Yes Indications: Really fluid accumulation and shortness of breath. Try to make a diagnosis. Surgeon: Dk Hubbard Click Yes if Unassisted: Yes Anesthesia Type: General Operative Notes Findings: Blood tinged fluid removed from the chest. About 2 and 0.5 L total was removed. Normal bronchoscopy. No evidence of an endobronchial lesion. No evidence of compression of the bronchi. Closure Type: not applicable Specimen(s): other (Fluid for cytology from both the lung and the chest.) Implants & Drains: Twenty-eight [place] chest tube Estimated Blood Loss (mL): 5 Blood products transfused: none Procedure in detail: The patient was placed supine on the operating table underwent general endotracheal anesthesia. The right chest was prepped and draped in the usual fashion local anesthetic was infiltrated in transverse edge in made and a tunnel was created to the rib space above. The chest was entered through the rib space over top of the rib. A 28 [place] chest tube was inserted. There was a great deal of fluid began to drain. We collected about 400 cc of blood-tinged fluid to send for cytology. The remainder was placed into a Pleur-Evac. The tube was clamped for a. Due to the large volume being removed. It was secured to the chest wall with interrupted 0 silk sutures. Dressing was applied. Attention was turned to bronchoscopy. Bronchoscope was inserted through the ET tube and into the lung. The damaris was sharp. The trachea and damaris were normal in appearance. The left mainstem and upper and lower lobes were unremarkable. Entry and careful examination of the upper middle and lower lobes including the segmental bronchi were all within normal limits. There is no bronchial lesion. I did give the right lung and sent fluid for cytology. There was no lesions seen. The bronchoscope was removed. Patient tolerated the procedure well. He was taken the recovery room extubated. Complications: none Condition: stable Disposition: PACU Plan for aftercare: Return to acute care
[2018-07-26] MEDS: fentaNYL 100 MCG/2 ML INJ 50 MCG IV ×2 (16:05→16:15)
[2018-07-27] VITALS (9 sets, daily range): BP systolic 95–108; BP diastolic 54–66; PULSE 82–98; RESP 16–20; TEMP 36.7–37.2; O2SAT 90–98
--- NOTE | 2018-07-27 | DI.RAD.S_ITS ---
PROCEDURE: XR CHEST 1V INDICATIONS: f/u placement of chest tube TECHNIQUE: One view of the chest was acquired. COMPARISON: , CR, XR CHEST 1V, 07/26/2018, 16:10. FINDINGS: Surgical changes and devices: Right thoracostomy tube is unchanged. Lungs and pleura: There is increased pleural fluid surrounding the aerated portions of the right lung. As before, pulmonary radiopacities are redemonstrated within the lower right lung. No pneumothorax visualized. The left lung is clear. Mediastinum: Mediastinal contours appear normal. Heart size is normal. Bones and chest wall: No suspicious bony lesions. Overlying soft tissues appear unremarkable. Cutaneous emphysema is redemonstrated around the thoracostomy tube and in the supraclavicular region. IMPRESSION: Increased pleural fluid surrounding the aerated right lung when compared with yesterday's study. Thoracostomy tube is in unchanged position. Dictated by: Isabell Sheth M.D. on 07/27/2018 at 13:08 Approved by: Isabell Sheth M.D. on 07/27/2018 at 13:10
[2018-07-27] MEDS: LORazepam 2 MG/ML SYRINGE 1 MG IV ×2 (01:49→22:54)
[2018-07-27] MEDS: SODIUM CHLORIDE 0.9% 500 ML 21 ML IV (05:40)
[2018-07-27] MEDS: MORPHINE PCA 30 MG/30 ML PCA.VIAL IV ×3 (05:41→23:41)
--- NOTE | 2018-07-27 13:28 | P.PN_ITS ---
Subjective Date Patient Seen: 07/27/18 Time Patient Seen: 09:03 Interval history: Patient seen in [facility] for follow-up of pleural effusion and lung mass. Respiratory failure. Patient had chest tube placed. Feeling like he is breathing slightly better. Still feels like he has a cough. Still feels like he gets short of breath moving around much in the room. He feels otherwise that pain has been well controlled. Has not heard from Oncology. Bronchoscopy was done in yesterday. Exam Vital Signs (past 8 hours): - 07/27/18 05:33 07/27/18 07:30 07/27/18 10:00 Temperature 98.1 F 98.5 F Pulse Rate 83 82 Respiratory Rate 20 18 Blood Pressure 103/59 L 105/62 Pulse Oximetry 95 97 95 07/27/18 12:00 07/27/18 13:05 Temperature 98.8 F Pulse Rate 98 H Respiratory Rate 16 Blood Pressure 95/54 L Pulse Oximetry 98 90 L Fraction of Inspired Oxygen 2 SaO2/FiO2 Ratio 4750 Oxygen Delivery Method Room Air Oxygen Flow Rate 2 Narrative Exam Narrative: Fatigue male lying in bed no acute respiratory distress. Mucous membranes moist. Lungs show decreased breath sounds on the right side but actually improved air movement from my last exam. No retractions. Heart regular rate and rhythm without murmur. Objective Labs Result Diagrams: 07/26/18 06:34 07/26/18 06:34 Assessment & Plan Plan: Assessment/Plan Narrative: Respiratory failure. Seems to be slightly better. Main issue was pleural effusion which hopefully is been drained and will be continued to be drained. I do not see this being something OB simply managed at home and expect will have to see how things go over the next 48 hr. As per surgeon. Right lung mass with pleural effusion. Still awaiting pathology. Does not appear to be adenoma or mesothelioma. Possible sarcoma versus unknown other cause. Awaiting bronchoscopy results. At this point will need to have some hopeful treatment may be Sunday will have results so we can get Oncology to start treatment hopefully we can slow down effusion. So that we can get rid of the chest to or at least decrease the output. We discussed this. He understands will follow from there. Pain control seems to be good. Disposition. Discussed with social service. We need pathology before we can definitively start treatment which I hope will then reduce pleural effusion. Will discuss with Oncology on Sunday no change for treatment this weekend. Quality VTE Deep Vein Thrombosis/Pulmonary Embolism Present on Admission: No
[2018-07-27] MEDS: SODIUM CHLORIDE 0.9% 1,000 ML 100 ML IV ×2 (14:07→22:55)
--- NOTE | 2018-07-27 14:50 | CM.DPNOTE ---
Continue to follow closely. Brief conversation w/Dr Nguyen; next steps dependent on pathology from recent biopsy. Chest tube providing relief but is not a middle or intermediate school principal plan. VENDING ROUTE DRIVER will be following closely to understand medical POC over next 48 hrs and appropriate DCP coordination. Pt may continue to be a good candidate for home w/hospice. CHER
--- NOTE | 2018-07-27 16:23 | PM.PN.1 ---
Subjective Date Patient Seen: 07/27/18 Time Patient Seen: 12:16 Interval history: Patient has some pain in his right chest. He is otherwise feeling okay. Exam Vital Signs (past 8 hours): - 07/27/18 10:00 07/27/18 12:00 07/27/18 13:05 Temperature 98.8 F Pulse Rate 98 H Respiratory Rate 16 Blood Pressure 95/54 L Pulse Oximetry 95 98 90 L 07/27/18 13:55 Temperature Pulse Rate Respiratory Rate Blood Pressure Pulse Oximetry 93 Fraction of Inspired Oxygen 2 SaO2/FiO2 Ratio 4750 Oxygen Delivery Method Room Air Oxygen Flow Rate 2 Narrative Exam Narrative: Lungs good air movement on the left some crepitance on the right with some air movement. Chest tube dressing dry. Objective Labs Result Diagrams: 07/26/18 06:34 07/26/18 06:34 Assessment & Plan Plan: Assessment/Plan Narrative: Chest x-ray shows a small kink in the chest tube. I am concerned about backing it out because it is not far from where the opening is in the chest wall and the last hole and the chest tube. I only have about 2 or 3 cm to work with before the whole be out of the chest and then the tube will become ineffective. The lung has not completely re-expanded and fluid is filled in around the on expanded portion. I suspect that there is a peel on the lung that is preventing it come from completely coming up. Await the pathology on the cytology and the lung washing. I suspect the lung washing will be negative. There was no endobronchial lesions seen. I talked with Dr. Nguyen and a CT scan will be ordered with the lung expanded to see if there is any other lesion or anything we can stick a needle into. I am concerned that there may be something at the edge of the pleura based on 1 of the CTs in the postoperative chest x-ray. He has drained about 800 cc of fluid today so the chest tube will have to remain. Quality VTE Deep Vein Thrombosis/Pulmonary Embolism Present on Admission: No
--- NOTE | 2018-07-27 23:53 | PC.NURSE ---
dressing change 2240 Per telephone order from MD, dressing to chest tube site changed. surgical gauze with serosang drainage removed. chest tube patent and maintained in place with sutures. no current drainage form insertion site noted. surrounding tissue WNL. Vaseline gauze applied to insertion site around tube with sterile 4x4 overlay and secured with tape. pt tolerated procedure without any difficulties.
[2018-07-28] VITALS (8 sets, daily range): BP systolic 96–111; BP diastolic 54–62; PULSE 92–97; RESP 16–24; TEMP 36.8–37.5; O2SAT 89–97
--- NOTE | 2018-07-28 | DI.CT.S_ITS ---
PROCEDURE: CT CHEST W CON INDICATIONS: s/p chest tube. lung evaluation and possible biopsy site TECHNIQUE: After the administration of intravenous contrast, 5 mm thick sections acquired from the pulmonary apices to the posterior costophrenic angles. 7 mm thick coronal and sagittal MIP reformats were acquired. For radiation dose reduction, the following was used: automated exposure control, adjustment of mA and/or kV according to patient size. COMPARISON: , CT, CT CHEST ABD PEL W CON, 07/22/2018, 10:46. , CT, CT CHEST W CON, 07/15/2018, 18:51. FINDINGS: Image quality: Excellent. Lungs and pleura: There is interval placement of a right-sided chest tube with interval slight decrease in amount of right-sided pleural effusion. Pockets of air are noted within moderate to large partially loculated right pleural effusion, likely due to chest tube insertion. There is interval partial expansion of right upper and middle lobes with near complete collapse of right middle lobe. Hazy airspace opacities are seen in the aerated portion of right upper and middle lobes suggestive of infiltrate/atelectasis. Centrilobular emphysema in bilateral aerated lung ruiz are seen. Small left pleural effusion is seen with dependent atelectasis in posterior aspect of left lower lobe. Tiny right apical pneumothorax is seen. No gross left-sided pneumothorax. Patient's known confluent mass involving right perihilar region and right mediastinum is not significantly changed in size and appearance. Mass effect on adjacent SVC is again noted unchanged. Central and peripheral airways are patent and normal in caliber. Mediastinum: Heart size is normal. No pericardial effusion. The prominent mediastinal and hilar lymph nodes are seen, suspicious for metastatic lymphadenopathy. Thoracic aorta and central pulmonary arteries are normal in size. Esophagus is normal in caliber. No hiatal hernia. Bones and chest wall: Subcutaneous emphysema in right chest wall is seen extending to right axilla consistent with vasogenic air from chest tube insertion. No suspicious bony lesions. No vertebral body compression fractures. No axillary or supraclavicular adenopathy by size criteria. Thyroid gland is within normal limits. Abdomen: Visualized upper abdominal solid organs appear normal. Upper abdominal bowel loops are normal in caliber. IMPRESSION: 1. Interval placement of a right-sided chest tube with slight decrease in amount of right-sided pleural effusion. Interval slight improvement in right lung aeration with partial expansion of right upper and middle lobes. Persistent atelectasis of right lower lobe. 2. Stable appearance of large necrotic right perihilar/mediastinal mass with prominent mediastinal and hilar lymph nodes consistent with neoplastic process with metastatic lymphadenopathy. 3. Interval development of small left pleural effusion. Emphysematous changes and bullous disease in bilateral lung ruiz with suggestion of tiny right apical pneumothorax. Dictated by: Dino Samayoa M.D. on 07/28/2018 at 12:49 Approved by: Dino Samayoa M.D. on 07/28/2018 at 13:04
[2018-07-28] MEDS: MORPHINE PCA 30 MG/30 ML PCA.VIAL IV ×3 (05:41→22:28)
[2018-07-28 06:16] LABS: Add Manual Diff / Slide Review NO; Basophils Absolute Auto 0 /uL (0-100); Basophils Percent Auto 0.3 % (0-2); Eosinophils Absolute Auto 200 /uL (0-450); Eosinophils Percent Auto 1.5 % (2-4); Hematocrit 37.3 % (41-53); Hemoglobin 12.7 g/dL (13.5-17.5); Lymphocytes Absolute Auto 1300 /uL (1100-4500); Mean Corpuscular Hemoglobin 31.7 PG (26-34); Mean Corpuscular Volume 93.1 fL (80-100); Monocytes Absolute Auto 1800 /uL (0-900); Monocytes Percent Auto 13.6 % (3-14); Neutrophils Absolute Auto 9700 /uL (1500-7000); Neutrophils Percent Auto 74.6 % (50-75); Platelet Count 221 X10^3/uL (150-400); Red Cell Distribution Width 12.7 % (11.6-14.8)
[2018-07-28 06:28] LABS: Alanine Aminotransferase 31 IU/L (21-72); Albumin 2.5 g/dL (3.5-5.0); Alkaline Phosphatase 48 U/L (38-126); Aspartate Aminotransferase 36 IU/L (17-59); Bilirubin Total 0.7 mg/dL (0.2-1.3); Blood Urea Nitrogen 12 mg/dL (9-20); Carbon Dioxide 27 mmol/L (22-32); Chloride 94 mmol/L (98-107); Estimated Glomerular Filt Rate > 60.0 mL/min (>60); Globulin 2.4 g/dL (1.7-4.1); Glucose 100 mg/dL (80-110); HEMOLYSIS < 15 (0-50); Potassium 4.4 mmol/L (3.4-5.1); Total Protein 4.9 g/dL (6.3-8.2)
[2018-07-28 06:54] LABS: Sodium 126 mmol/L (137-145)
--- NOTE | 2018-07-28 09:03 | CM.DPC ---
Addendum entered by INGE Gonsalez 07/28/18 12:31: ADD: Met with family and pt again and they provided the completed NATE for pt's brother to have permission to receive medical information. SW provided family with DPOA brochure and pwk along with POLST form as pt is scheduled for procedure tomorrow (Sun) and family hoping to have pwk all in place in case procedure uncovers negative results. Family and pt very appreciative and pt now leaving floor for procedure today as well. BF Original Note: DCP Cont: Per MD, still waiting for biopsy results and Oncology Consult both likely on Sun07/29/18 to determine Plan Of Care and possible discussion with pt and family on Goals of Care. Pt still has chest tube with some draining and discomfort. SW met bedside with pt, 2 sisters and a brother, and explained role and they confirmed that they are still waiting for biopsy results before knowing plan of care and further discussion about what the pt wants. Pt seemed to be somewhat uncomfortable but was alert and oriented and agreeable to family support and involvement. Family has a binder that they are using to keep pt's medical information organized and SW discussed DPOA pwk and they plan to complete that soon. Family requested NATE for pt so that brother and son can officially receive medical updates and pt very agreeable to this. SW provided them with a NATE to complete. Plan: SW to follow closely tomorrow for biopsy results and Oncology Consult towards determining Goals of Care and d/c planning needs. INGE Gonsalez
[2018-07-28] MEDS: SODIUM CHLORIDE 0.9% 1,000 ML 100 ML IV ×2 (09:10→18:53)
[2018-07-28] MEDS: ENOXAPARIN 40 MG/0.4 ML SYRINGE SUBCUT (09:10)
--- NOTE | 2018-07-28 11:08 | PC.NURSE ---
Addendum entered by López Torrez R.N. 07/28/18 14:56: Discussed FARM EQUIPMENT ENGINE MECHANIC plan with family and with Dr. Nguyen. new order has the continuous starting at 22:00 each evening and ending each morning at 07:00 the demand stays the same throughout the day. Family is agreeable to this. Family very attentive at Pt's bedside. Original Note: Pt alert and conversant though mildly confused, Family attentive in room asking appropriate questions, voicing appropriate concerns. IV patent, CT patent Pt offers no overt c/o pain. Using FARM EQUIPMENT ENGINE MECHANIC appropriately. Family and Pt speaking with Dr. Nguyen.
--- NOTE | 2018-07-28 11:33 | PM.PN.1 ---
Subjective Date Patient Seen: 07/28/18 Time Patient Seen: 11:33 Interval history: Patient seen in follow-up of pleural effusion pulmonary mass. Overall just tired. Very problematic with getting up moving around very short of breath. Otherwise has no other significant change. Pain at night is not been well controlled. Patient is on GROUP ACCOUNT DIRECTOR and low-dose morphine continuous drip. Pathology is not back. No other changes. Exam Vital Signs (past 8 hours): - 07/28/18 03:38 07/28/18 07:50 07/28/18 11:16 Temperature 99.1 F 98.6 F Pulse Rate 95 H 92 H Respiratory Rate 16 24 Blood Pressure 98/59 L 102/57 L Pulse Oximetry 91 95 92 Fraction of Inspired Oxygen 2 SaO2/FiO2 Ratio 4750 Oxygen Delivery Method Room Air Oxygen Flow Rate 2 Narrative Exam Narrative: Alert fatigued male in no acute distress with oxygen in place. HEENT exam is unremarkable. Neck supple without adenopathy. Lungs with continued decreased breath sounds right side. No organ often knee. No other change. Heart regular rate and rhythm. Abdomen is soft positive bowel sounds nontender. Extremities without cyanosis clubbing edema Objective Labs Result Diagrams: 07/28/18 05:51 07/28/18 05:51 Labs: Laboratory Results - last 24 hr 07/28/18 07/28/18 05:51 05:51 WBC 13.0 H RBC 4.00 L Hgb 12.7 L Hct 37.3 L MCV 93.1 MCH 31.7 MCHC 34.0 RDW 12.7 Plt Count 221 Neut % (Auto) 74.6 Lymph % (Auto) 10.0 L Iron % (Auto) 13.6 Eos % (Auto) 1.5 L Baso % (Auto) 0.3 Neut # (Auto) 9700 H Lymph # (Auto) 1300 Iron # (Auto) 1800 H Eos # (Auto) 200 Baso # (Auto) 0 Sodium 126 L Potassium 4.4 Chloride 94 L Carbon Dioxide 27 BUN 12 Creatinine 1.00 Estimated GFR > 60.0 BUN/Creatinine Ratio 12.0 Glucose 100 Calcium 8.0 L Total Bilirubin 0.7 AST 36 ALT 31 Alkaline Phosphatase 48 Total Protein 4.9 L Albumin 2.5 L Globulin 2.4 Albumin/Globulin Ratio 1.0 Assessment & Plan Plan: Assessment/Plan Narrative: Right lung mass with pleural effusion. Still awaiting pathology. Does not appear to be adenoma or mesothelioma. Possible sarcoma versus seminoma. Hopefully pathology will be back tomorrow. With chest tube in place really until we start getting some type of treatment I do not think were going to be able to pull this. I do not think were going to be able to go home. Hoping Oncology can make some decisions tomorrow. Family conference today. Questions were answered. Really can't make any decisions until pathology is known. I have discussed with surgeon and we will obtain CT scan to assess lung reexpansion and possible biopsy sites depending on what is found and what pleural fluid pathology shows. He understands questions answered will follow from there. Respiratory failure. Much improved although not as much as I was hoping with draining of the fluid. Pain control could be better will increase his basal rate of morphine and follow from there. Still on oxygen still pretty short of breath when he walks but otherwise pretty stable. Elevated white count. Very mild. No evidence of fever. Probably stress reaction but unclear. Will need to follow. No evidence of significant fashion will hold antibiotics at this time. Sore throat. Probably secondary to endoscopy and intubation but will see how things go Disposition. Awaiting pathology. Hopefully will have that tomorrow and some decisions can be made. Time Spent With Patient Time with patient: Greater than 35 minutes Quality VTE Deep Vein Thrombosis/Pulmonary Embolism Present on Admission: No
--- NOTE | 2018-07-28 16:16 | PM.PN.1 ---
Subjective Date Patient Seen: 07/28/18 Time Patient Seen: 14:16 Interval history: Patient seen and explained his situation with him. Two sisters and 1 brother from [place] arrived and I came back to explain things to them. He is feeling pre seems little more alert than yesterday. Exam Vital Signs (past 8 hours): - 07/28/18 11:16 07/28/18 11:25 07/28/18 16:03 Temperature 98.2 F 98.4 F Pulse Rate 95 H 93 H Respiratory Rate 20 18 Blood Pressure 104/54 L 96/54 L Pulse Oximetry 92 96 96 Fraction of Inspired Oxygen 2 SaO2/FiO2 Ratio 4750 Oxygen Delivery Method Room Air Oxygen Flow Rate 2 Narrative Exam Narrative: Patient runs out of breath when talking. Dressing was changed is intact. Good air movement on the left decreased on the right. 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 It is still patent however. Despite the report the upper and middle lobes are markedly re-expanded compared to prior CT. The lower lobe was still somewhat compressed. There is still a remainder of fluid in the lung but the improvement in volume is considerable. Labs Result Diagrams: 07/28/18 05:51 07/28/18 05:51 Labs: Laboratory Results - last 24 hr 07/28/18 07/28/18 05:51 05:51 WBC 13.0 H RBC 4.00 L Hgb 12.7 L Hct 37.3 L MCV 93.1 MCH 31.7 MCHC 34.0 RDW 12.7 Plt Count 221 Neut % (Auto) 74.6 Lymph % (Auto) 10.0 L [place] % (Auto) 13.6 Eos % (Auto) 1.5 L Baso % (Auto) 0.3 Neut # (Auto) 9700 H Lymph # (Auto) 1300 [place] # (Auto) 1800 H Eos # (Auto) 200 Baso # (Auto) 0 Sodium 126 L Potassium 4.4 Chloride 94 L Carbon Dioxide 27 BUN 12 Creatinine 1.00 Estimated GFR > 60.0 BUN/Creatinine Ratio 12.0 Glucose 100 Calcium 8.0 L Total Bilirubin 0.7 AST 36 ALT 31 Alkaline Phosphatase 48 Total Protein 4.9 L Albumin 2.5 L Globulin 2.4 Albumin/Globulin Ratio 1.0 Assessment & Plan Plan: Assessment/Plan Narrative: I spent over half of this visit talking to the patient and the family regarding what will be done next. Will try to get the results of the cytology from Sunday and the bronchial washing. It may not be available however. If negative he probably would benefit from a thoracoscopy and tissue sampling. Clearly this is not curable by resection. But we still have to make a diagnosis to see if there is an effective treatment for it. 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 This may well explain the unusual cell type of found thus far. His family said he worked in the worst building of all and in fact they simply tore it down at some point because it was so contaminated and shipped the de constructed building to [facility]. Time Spent With Patient Time with patient: 15-24 minutes Quality VTE Deep Vein Thrombosis/Pulmonary Embolism Present on Admission: No
[2018-07-28] MEDS: LORazepam 2 MG/ML SYRINGE 1 MG IV (18:53)
[2018-07-29] VITALS (8 sets, daily range): BP systolic 100–131; BP diastolic 50–63; PULSE 88–102; RESP 18–24; TEMP 36.7–37; O2SAT 93–96
[2018-07-29] MEDS: SODIUM CHLORIDE 0.9% 1,000 ML 100 ML IV ×2 (04:54→14:32)
[2018-07-29 05:56] LABS: Add Manual Diff / Slide Review NO; Basophils Absolute Auto 100 /uL (0-100); Basophils Percent Auto 0.6 % (0-2); Eosinophils Absolute Auto 200 /uL (0-450); Eosinophils Percent Auto 1.7 % (2-4); Hematocrit 34.1 % (41-53); Hemoglobin 11.5 g/dL (13.5-17.5); Lymphocytes Absolute Auto 1000 /uL (1100-4500); Lymphocytes Percent Auto 8.3 % (25-40); Mean Corpuscular HGB Conc 33.7 % (30-36); Mean Corpuscular Hemoglobin 31.5 PG (26-34); Mean Corpuscular Volume 93.5 fL (80-100); Monocytes Absolute Auto 1700 /uL (0-900); Monocytes Percent Auto 13.5 % (3-14); Neutrophils Absolute Auto 9400 /uL (1500-7000); Neutrophils Percent Auto 75.9 % (50-75); Platelet Count 236 X10^3/uL (150-400); Red Blood Cell Count 3.65 X10^6/uL (4.5-5.9); Red Cell Distribution Width 12.4 % (11.6-14.8); White Blood Cell Count 12.4 X10^3/uL (4.5-11.0)
[2018-07-29 06:06] LABS: Blood Urea Nitrogen 11 mg/dL (9-20); Carbon Dioxide 25 mmol/L (22-32); Chloride 96 mmol/L (98-107); Estimated Glomerular Filt Rate > 60.0 mL/min (>60); Glucose 81 mg/dL (80-110); HEMOLYSIS < 15 (0-50); Potassium 4.4 mmol/L (3.4-5.1); Sodium 129 mmol/L (137-145)
[2018-07-29] MEDS: MORPHINE PCA 30 MG/30 ML PCA.VIAL IV ×3 (06:19→22:49)
--- NOTE | 2018-07-29 09:27 | P.PN_ITS ---
Subjective Date Patient Seen: 07/29/18 Time Patient Seen: 09:18 Interval history: With patient and family, patient feels about the same. He does not feel his breathing has gotten substantially better still huffing and puffing and having hard time getting words out. Pain continues to be an issue although better with a continuous morphine overnight with added PLASTICS PRODUCTION MACHINE OPERATOR. Reviewed status including the most recent CT scan which she indicates fairly minimal drop in pleural fluid but with persistent mass. Also note the bronchoscopy report that indicates an inability to find good tissue to biopsy there is some additional fluid and a bronch wash pending. Seems that we need to still go after the mass itself possibly through thoracoscopy. So we are still in a holding pattern. Family wondered about a 2nd opinion as to whether [place] might be a better option, specifically whether proton beam treatment would be considered, also have a POLST to review. Exam Vital Signs (past 8 hours): - 07/29/18 01:35 07/29/18 04:40 07/29/18 07:50 Temperature 98.6 F 98.5 F 98.3 F Pulse Rate 102 H 96 H 88 Respiratory Rate 22 20 24 Blood Pressure 106/63 102/52 L 103/51 L Pulse Oximetry 95 93 94 Fraction of Inspired Oxygen 94 SaO2/FiO2 Ratio 4750 Oxygen Delivery Method Nasal Cannula Oxygen Flow Rate 2 Narrative Exam Narrative: Resting quietly but with increased respiratory effort that is largely unchanged since I last saw him 3 days ago. Chest shows some fair air movement on the left some crackles, perhaps some air movement on the right apex but mostly still quiet. Heart regular without murmur abdomen soft nontender nondistended normoactive bowel tones extremities benign neurologically nonfocal Objective Labs Result Diagrams: 07/29/18 05:40 07/29/18 05:40 Labs: Laboratory Results - last 24 hr 07/29/18 07/29/18 05:40 05:40 WBC 12.4 H RBC 3.65 L Hgb 11.5 L Hct 34.1 L MCV 93.5 MCH 31.5 MCHC 33.7 RDW 12.4 Plt Count 236 Neut % (Auto) 75.9 H Lymph % (Auto) 8.3 L [place] % (Auto) 13.5 Eos % (Auto) 1.7 L Baso % (Auto) 0.6 Neut # (Auto) 9400 H Lymph # (Auto) 1000 L [place] # (Auto) 1700 H Eos # (Auto) 200 Baso # (Auto) 100 Sodium 129 L Potassium 4.4 Chloride 96 L Carbon Dioxide 25 BUN 11 Creatinine 1.00 Estimated GFR > 60.0 BUN/Creatinine Ratio 11.0 Glucose 81 Calcium 8.0 L Assessment & Plan (1) Mass of upper lobe of right lung: Problem details: Deferring to General surgery for that. We now have information from family regarding the patient's industrial exposure, including 20 years at [facility] with numerous and various toxic exposures. These apparently may include a radioactive substances. May explain why as far as we can tell the mass seems more exotic than most. Hoping we can get something from the biopsies done on Sunday but seems pretty likely that we will need to go after the tissue itself by thoracoscopy. Deferring to General surgery. Emphasized to patient and family that any treatment is relying on tissue diagnosis whether it is chemotherapy radiation therapy or proton beam. Will defer that to oncology. Current visit: Yes Status: Acute (2) Pleural effusion on right: Problem details: Now with chest tube in place but not helping quite as much as I had hoped. Will continue slow removal of fluid hope over time it will help. Current visit: Yes Status: Acute (3) Acute respiratory failure: Problem details: Some Improved but variable depending on above. Will continue O2 as needed. Qualifiers: Respiratory failure complication: Current visit: Yes Status: Acute Plan: Assessment/Plan Narrative: Right now waiting for repeat pathology, and looking for other options to get better tissue diagnosis. No changes until then. Quality VTE Deep Vein Thrombosis/Pulmonary Embolism Present on Admission: No
[2018-07-29] MEDS: ENOXAPARIN 40 MG/0.4 ML SYRINGE SUBCUT (09:50)
[2018-07-29] MEDS: LORazepam 2 MG/ML SYRINGE 1 MG IV ×2 (14:44→21:07)
--- NOTE | 2018-07-29 15:40 | CM.DPC ---
DCP/continued: Reviewed chart. Patient currently with chest tube. EMERGENCY RESPONSE COORDINATOR met with patient and family including brother/Jonathan at bedside explained role. Patient remembered EMERGENCY RESPONSE COORDINATOR from previous visit. Family with several questions re: medical treatment and plan. EMERGENCY RESPONSE COORDINATOR asked charge/RN Renee Dunaway to join conversation. Several of the questions were related to having patient transferred to higher level of care. Family concerned that not enough being done here. EMERGENCY RESPONSE COORDINATOR and RN notified family that we would attempt to contact MD and surgeon to obtain some answers for them. Family appreciative. Renee called Dr. Fam and Surgeon notifying them that family have several questions/concerns re: medical treatment. In addition, EMERGENCY RESPONSE COORDINATOR spoke with Marla from [facility] because they are also involved re: [place]. After all involved parties notified, Dr. Fam came to the floor to discuss medial plan with patient and family. This included patient having tissue biopsy tomorrow in AM 07-30-18. EMERGENCY RESPONSE COORDINATOR met again with patient and family after medical treatment plan had been discussed in full with patient and family by MD. Family very satisfied with outcome. Patient in agreement to remain at [facility] until or if transfer to higher level of care needed. Family and patient very appreciative of the immediate attention they received from RN/charge and CM steam flattener. Encouraged patient and family to contact staff if they have further questions. P: Pending. D/C plan will depend on patient's needs at time of d/c. INGE Mcrae
--- NOTE | 2018-07-29 15:50 | PC.NURSE ---
Pt A&Ox3; making needs known. Noticeably dyspneic w/ conversation and remains on 1L/NC, does not state that breathing is any different than yesterday. This afternoon pt tearful and sobbing, expressing to this RN much of his anxiety about the unknown and that he isn't doing well Reassured pt that we currently have no 'official' news to state anything further and discussed at length next steps and plan, pt verbalized feeling better and requested medication for anxiety--now resting comfortably.
--- NOTE | 2018-07-29 17:09 | PC.NURSE ---
Pt has been dozing awaken easily visting with family making jokes . Chest tube to h20. 1 liter sats 93. using agriculture scientist pt appears calm lots of family with questions awaiting .
--- NOTE | 2018-07-29 19:21 | PC.NURSE ---
Dr. cohen here to see pt and answers questions for family.
[2018-07-29] MEDS: LACTATED RINGERS 1,000 ML 42 ML IV (23:05)
[2018-07-30] VITALS (20 sets, daily range): BP systolic 88–124; BP diastolic 53–87; PULSE 77–97; RESP 14–24; TEMP 36.5–37.4; O2SAT 88–97; BMI 23.9
--- NOTE | 2018-07-30 | DI.RAD.S_ITS ---
PROCEDURE: XR CHEST 1V INDICATIONS: post thoracoscopy TECHNIQUE: One view of the chest was acquired. COMPARISON: [facility], CT, CT CHEST W CON, 07/28/2018, 11:39. [facility], CR, XR CHEST 1V, 07/27/2018, 12:45. FINDINGS: Surgical changes and devices: Right lateral chest tube appears to have been either replaced or repositioned, with improved aeration over the right lung, in this patient with multiple loculated pleural fluid collections and exudative right pleural effusion. The patient is rotated leftward. Lungs and pleura: No pleural effusions or pneumothorax. Lungs are clear. Mediastinum: Mediastinal contours appear normal. Heart size is normal. Bones and chest wall: No suspicious bony lesions. Overlying soft tissues appear unremarkable. IMPRESSION: A by basilar alveolar airspace disease, much greater on the right than the left, with extension of alveolar opacification extending cephalad through the mid and upper lung on the right. Right lateral pleural drain appears to have been repositioned, significant improvement in right pleural drainage hasn't been accomplished as a result. Mass lesion along the right mediastinal border has been previously documented by CT scanning superiorly. Dictated by: Mitul Mills M.D. on 07/30/2018 at 18:54 Approved by: Mitul Mills M.D. on 07/30/2018 at 19:01
--- NOTE | 2018-07-30 | PATH_ITS ---
[facility] Accession Number: [id number] . 01 Material submitted: . PART A: PLEURA PART B: PLEURA . 01 Clinical history: . A: FOR FROZEN SECTION . 02 Frozen section diagnosis: . FS: LESIONAL MATERIAL PRESENT. SIMILAR MORPHOLOGY TO RECENT CYTOLOGY. . Results given to Dr. Ella Hubbard after patient identification by Dr. Mara Miner, 07/30/2018. Frozen section was performed at [address] [facility]/V . 03 Diagnosis: A-B. 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 [facility]/08/09/2018 . 03 Comment: Specimens A and B (pleura) show a large cell epithelioid malignancy with similar morphologic features characterized by extensive necrosis, discohesion, sheets of eosinophilic cells with moderately abundant cytoplasm, and severely atypical round nuclei with vesicular chromatin and prominent nucleoli. A panel of immunostains* is obtained on block B1, with controls stained appropriately. The tumor shows the following results: . Broad spectrum keratins (MANDI): Variably positive, weak. SOX10: Negative. Melan-A: Negative. CD20: Negative. CD43: Negative. ALK1: Negative. CD30: Negative. Synaptophysin: Uniformly positive. TTF1: Rare cell positive. Hep Par 1: Focally positive. Arginase: Negative. Glypican 3: Negative. SALL4: Focally positive. OCT3/4: Negative. CD34: Variably positive. ERG1: Negative. CD31: Negative. Desmin: Negative. NKX2.2: Negative. INI1: No loss of expression. SMARCA4 (BRG-1): Positive for loss/diminished expression, see comment. . These results, in conjunction with the morphologic features, strongly support the newly described entity SMARCA4-deficient lung carcinoma/sarcoma based on what appears to be SMARCA4 deficiency (the tumor nuclei focally show low level, weak staining in comparison to non-neoplastic tissues) in addition to a relatively unique immunoprofile characterized by aberrant pattern of expression with broad spectrum keratins (MANDI) and expression with SALL4, Hep Par 1, Glypican 3, CD34, TTF1 and synaptophysin. The SMARCA4 deficient thoracic malignancies have been subdivided in the literature into sarcomas or carcinomas; however, given the overlapping clinical, pathologic and immunophenotypic features of these two entities, distinction is not always possible, as exemplified in this particular case. SMARCA4 deficient malignancies of the thorax typically exhibit an aggressive clinical course, although reportedly exhibit a higher level of sensitivity to [place]-based chemotherapy (please see provided references). . Additionally, the immunostain results show no evidence for a lymphoma (negative CD20/CD43/ALK1/CD30), melanoma (negative SOX10/Melan-A), seminoma (negative OCT3/4), hepatocellular carcinoma (negative arginase), epithelioid angiosarcoma (negative ERG1/CD31), myogenic sarcoma (negative desmin), Jacobo sarcoma (negative NKX2.2) or epithelioid sarcoma (no loss of INI1). . This case is reviewed and interpreted my colleague, Dr. Viola Loaiza who renders the diagnosis and comment above. The results and findings are discussed with Dr. Alvarez by Dr. Miner on 08/06/2018 and 08/09/2018. At the request of Dr. Kim, immunohistochmichal stains for DNA mismatch repair proteins and for PD-L1 will be performed, and results issued in an addendum. . References: . 1: Ирина R, Mercedes L, Max S, Shu I, Yogi S, Davion F, Ybentley V, Mg D, Kanu Ramos V, Venkata J, Jimena S, Dilia M, Kevon FrancoisY, Leslie JM, Trinity F, Carmen Cooper F. SMARCA4-deficient Thoracic Sarcomas: Clinicopathologic Study of 30 Cases With an Emphasis on Their Nosology and Differential Diagnoses. Am J Surg Pathol. 2018 May 24. PubMed PMID: [id number]. . 2: Cynthia EH, Sharon AR, Guy X, Samayoa Z, Ravin K, Nadia S, Jeni P, Braydon M, Mindy N, Jw R, Dell G, Mayito DP, Taylor Bernabe. SMARCA4/BRG1 Is a Novel Prognostic Biomarker Predictive of Cisplatin-Based Chemotherapy Outcomes in Resected Non-Small Cell Lung Cancer. Clin Cancer Res. 2016 November 20;22(10):2396-404. PubMed PMID: 29444856; PubMed Central PMCID: [id number]. . * This test was developed and its performance characteristics determined by [employer]. It has not been cleared or approved by the U.S. Food and Drug Administration. The FDA has determined that such clearance or approval is not necessary. This test is used for clinical purposes. It should not be regarded as investigational or for research . 03 Electronically signed: . Mark Miner MD, PhD, Pathologist NPI- [id number] . 01 Gross description: . (A) Received in formalin, labeled pleura for frozen section, was previously received unfixed for frozen section performed at [facility], consisting of red-castañeda tissue with blood clots (4.7 x 3.5 x 0.6 cm in aggregate). The remaining tissue is submitted for frozen section is entirely submitted in cassette A1, and the remaining tissue is entirely submitted in cassettes A2-A6. (B) Received in formalin, labeled pleura, are multiple fragments of red-castañeda tissue with blood clots (5.3 x 4.5 x 1.2 cm in aggregate). Entirely submitted in cassettes B1-B5. (JM:[id number]) /MRV . 03 Microscopic: . A, B) See diagnosis comment. . 03 Pathologist provided ICD-10: C34.90 . 03 CPT . 131225, 141434, 748678, S10126, J79025 Performed at: 01 [facility] [address] [place] [address], [place], [place] [id number] MD Tani Galeana MD Phone: [phone] Performed at: [address] [id number] MD Shubham Joaquin MD Phone: [phone] Performed at: 03 [facility] [id number] [place] [id number] MD Pina Jernigan MD Phone: [phone]
[2018-07-30] MEDS: MORPHINE PCA 30 MG/30 ML PCA.VIAL IV ×3 (05:49→19:24)
--- NOTE | 2018-07-30 06:06 | PC.NURSE ---
shift boss overview: Pt had an uneventful night. Pt is alert and at times seems a bit confused, reorients easily. Notable decrease in chest tube drainage, appr 110ml of red drainage out overnight. Lung sounds to right lung are much less diminished that last night and sats on 2L have remained in the mid 90's, pt occasionally removed O2 NC and sats on RA would remain around 89-90%.
[2018-07-30 06:37] LABS: Add Manual Diff / Slide Review NO; Basophils Absolute Auto 100 /uL (0-100); Basophils Percent Auto 0.7 % (0-2); Eosinophils Absolute Auto 200 /uL (0-450); Eosinophils Percent Auto 2.2 % (2-4); Hematocrit 32.8 % (41-53); Hemoglobin 11.3 g/dL (13.5-17.5); Lymphocytes Absolute Auto 900 /uL (1100-4500); Lymphocytes Percent Auto 8.4 % (25-40); Mean Corpuscular HGB Conc 34.3 % (30-36); Mean Corpuscular Hemoglobin 31.9 PG (26-34); Mean Corpuscular Volume 93.1 fL (80-100); Monocytes Absolute Auto 1600 /uL (0-900); Monocytes Percent Auto 15.2 % (3-14); Neutrophils Absolute Auto 7900 /uL (1500-7000); Neutrophils Percent Auto 73.5 % (50-75); Platelet Count 278 X10^3/uL (150-400); Red Blood Cell Count 3.52 X10^6/uL (4.5-5.9); Red Cell Distribution Width 12.6 % (11.6-14.8); White Blood Cell Count 10.7 X10^3/uL (4.5-11.0)
[2018-07-30 06:52] LABS: BUN Creatinine Ratio 12.2 (6-22); Blood Urea Nitrogen 11 mg/dL (9-20); Calcium 7.9 mg/dL (8.4-10.2); Carbon Dioxide 23 mmol/L (22-32); Chloride 95 mmol/L (98-107); Estimated Glomerular Filt Rate > 60.0 mL/min (>60); Glucose 72 mg/dL (80-110); HEMOLYSIS < 15 (0-50); Potassium 4.3 mmol/L (3.4-5.1); Sodium 128 mmol/L (137-145)
--- NOTE | 2018-07-30 09:00 | PC.NURSE ---
Pts chest tube to 20cm of suction. He has bloody drainage in chamber. On a morphine vice president consulting services at 07/18/29. Given ativan at 1130 and helpful for anxiety. Pt had 390cc of bloody drainage this shift from chest tube. LS diminished throughout. Dressing to Chest tube on r.side cdi with small amount of old ss drainage. Pt down to surgery around 1415. He did not void this shift. Went down to let Recovery know and they will be putting a rebolledo catheter in. Pt on bed rest today. Family down in waiting room, pt is going to have his biopsy of mass around lung area.
[2018-07-30] MEDS: LORazepam 2 MG/ML SYRINGE 1 MG IV ×2 (11:35→19:21)
--- NOTE | 2018-07-30 13:21 | ONC.NAV ---
Description: Care Coordination/Check-in Activity: This NITRILES LAB TECHNICIAN met with pt's sister and brother on the floor to assess coping and care coordination needs in relation to his oncology plan of care. Pt was found to be in a position, being calmed by another one of his sisters. He is described by family as being in severe pain, anxious and scared. His pain medications had been decreased in anticipation of his impending biopsy, which had been delayed by an hour at the time of this visit. This NITRILES LAB TECHNICIAN reassured family that we in Oncology are coordinating with the inpatient team re: the biopsy and next steps for treatment. Family is still considering taking pt down south to a bigger hospital, however they have decided to go through with the biopsy to establish a baseline plan. Pt appears to be declining, and has not eaten in 2-days, per family report. NITRILES LAB TECHNICIAN offered to relay their concerns about his pain and anxiousness to his nurse. His nurse states that he had been given an Ativan at 11:30am, however this NITRILES LAB TECHNICIAN visited after 1:00pm, and found him to be highly distressed. NITRILES LAB TECHNICIAN will provide an update to our oncologist, Dr. Kim, who is monitoring this patient at this time.
[2018-07-30] MEDS: LACTATED RINGERS 1,000 ML 42 ML IV (15:00)
[2018-07-30] MEDS: CEFAZOLIN 2 GM/100 ML FROZ.PIGGY IV (15:50)
--- NOTE | 2018-07-30 16:31 | SUR.OPER ---
Lateral on mosher bag on padded OR bed, head on pillow, gel axillary roll in place, bottom leg bent with gel pad under knee to foot, upper leg straight and supported with pillows. Upper arm supported by pillows and secured over bottom arm to padded arm board. Safety belt at hip, tape over blanket lower legs.
--- NOTE | 2018-07-30 16:37 | PC.NURSE ---
Late Entry for 07/29 I was asked to see this pt and his siblings to answer as many question as I could involving the care process at [facility]. When I entered the room, Dr. Fam was at taking with the pt and family. I introduced myself and asked if there were any questions I could help answer. Questions addressed consisted of quality of care, when they could get started, why no one has come to see them, and what testing did they need. I yielded to Dr. Fam for answering the majority of the questions. He had stated he would ask Dr Hubbard about the feasibility of have a lung bx done here at [facility]. He outlined the timeline that if they were able to have it done here results could take 36-72 hours before anything else could be scheduled. I did explain to the family that it looked like an error occurred with Dr. Fams orders and that it was transmitted to [facility] instead of coming to us. I assured them I reached out to Dr Elise and they could expect him after clinic hours somewhere around 5-530 this evening. I also asked for them to consider us for the pts care. In the days to come, test results would guide his tx options which are universal based on those results. Dr Fam confirmed this as well. I also explained we wanted the best care possible for the pt and for them to consider the long days that the pt would spend getting from [place] to [facility] and back again. This can be a terrible burden on chemo patients. They seemed to be satisfied and were happy I stopped by I thanked them and left the room
[2018-07-30] MEDS: BUPIVACAINE 0.5% W/ EPI (PF) VIAL 30 ML INJ (16:39)
[2018-07-30] MEDS: ALBUTEROL 2.5 MG/3 ML NEB (ADULT) INH (17:30)
[2018-07-30] MEDS: MORPHINE 10 MG/ML INJ 4 MG IV (18:04)
--- NOTE | 2018-07-30 18:10 | PM.OP.1 ---
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 Diagnosis uncertain Post-op diagnosis: same Procedure & Clinicians Procedure: Thoracoscopy with pleural biopsy Same procedure as scheduled: Yes Indications: Patient is a gentleman with a poorly differentiated malignant mass of uncertain etiology. I was asked to do a thoracoscopy to obtain tissue for definitive diagnosis. The pleural fluid contains malignant cells but the type is yet to be determined. Surgeon: Dk Hubbard Print And Pattern Designer: Darian Ordonez Click Yes if Unassisted: No Anesthesia Type: General Operative Notes Findings: Edematous bloody material on surface of lung. Multiple pieces of parietal pleura obtained. Frozen section thought to be adequate for diagnosis with the additional tissue supplied. Closure Type: non-primary Specimen(s): other (Pieces of pleura) Implants & Drains: Thirty-eight Malaysian chest tube left in place Applied: drain(s) (Thirty-eight Malaysian chest tube) Estimated Blood Loss (mL): 100 Procedure in detail: The patient was placed supine on the operating room table and underwent intubation with a double-lumen tube. It was secured. He was then placed left lateral decubitus position right side up. His chest tube was removed and He was prepped draped usual fashion. I inserted a blunt thoracoscopy port into the prior chest tube site. The is great deal of bloody material withi the chest cavity making visualization difficult. I added a 2nd port site in the mid clavicular line low in the chest. Through this we irrigated and suctioned fluid from the lung. There was generalized oozing from the surface. Using a finger I swept the pleura free so that we could identify and remove pieces of it as I felt that this was a pleural based problem. We removed multiple pieces of pleura and submitted it for frozen. The pathologist reported that the abnormality seen on the cytology was also seen on the pleura and he felt that he had adequate tissue to make a diagnosis. We submitted additional tissue which was obtained while we were waiting for the frozen report. A 38 Malaysian chest tube was placed in the midclavicular port site and secured with 0 silk suture. The chest was irrigated again and we suctioned what we could from the chest cavity. I then placed the tube to a Pleur-Evac and dressings were applied. The patient was placed supine awakened and taken to the recovery area. Complications: none Condition: stable Disposition: PACU Plan for aftercare: Floor care
[2018-07-30] MEDS: DEXTROSE 5%-0.45% NS 1,000 ML 80 ML IV (19:10)
--- NOTE | 2018-07-30 23:50 | PC.NURSE ---
Pt to floor from PACU with O2 6L; chest tube in place with 20 dry suction; drsg to chest tube site saturated serosanguinous; lung sounds diminished to right lower lobe; patient confused and mostly sleeping to left side, although agitated at times; CUSTOMER EXPERIENCE SPECIALIST running 0.5 continuous; @ 2245 IV pulled out via patient movement; pt did not void during shift; shift engineer notified; family in room throughout shift
[2018-07-31] VITALS (10 sets, daily range): BP systolic 86–114; BP diastolic 47–65; PULSE 70–79; RESP 12–23; TEMP 36.2–36.5; O2SAT 91–97
[2018-07-31 05:47] LABS: Add Manual Diff / Slide Review NO; Basophils Absolute Auto 0 /uL (0-100); Basophils Percent Auto 0.2 % (0-2); Eosinophils Absolute Auto 0 /uL (0-450); Hematocrit 32.2 % (41-53); Lymphocytes Absolute Auto 400 /uL (1100-4500); Lymphocytes Percent Auto 3.8 % (25-40); Mean Corpuscular HGB Conc 34.2 % (30-36); Mean Corpuscular Hemoglobin 31.7 PG (26-34); Mean Corpuscular Volume 92.6 fL (80-100); Monocytes Absolute Auto 800 /uL (0-900); Monocytes Percent Auto 6.9 % (3-14); Neutrophils Absolute Auto 9900 /uL (1500-7000); Neutrophils Percent Auto 89.1 % (50-75); Platelet Count 319 X10^3/uL (150-400); Red Blood Cell Count 3.47 X10^6/uL (4.5-5.9); Red Cell Distribution Width 12.4 % (11.6-14.8); White Blood Cell Count 11.1 X10^3/uL (4.5-11.0)
[2018-07-31] MEDS: MORPHINE PCA 30 MG/30 ML PCA.VIAL IV ×3 (06:27→20:32)
--- NOTE | 2018-07-31 06:37 | PC.NURSE ---
0445 Pt. stood up @ the bedside to void & voided 675 cc of dark gus urine. While sleeping B/P 94/58 rechecked after he's awake 114/64. Still very drowsy keep his eyes closed. Cleared 8.8 mg. of his Morphine SCHOOL MANAGER + cont. 0.5 ml/hr. Reinforced drsg. to Rt. lat. chest CDI & chest tube putout 130 cc of sero-sang. drainage, will cont. POC & monitor.
[2018-07-31] MEDS: LORazepam 2 MG/ML SYRINGE 1 MG IV ×2 (08:49→20:23)
--- NOTE | 2018-07-31 09:28 | PM.PN.1 ---
Subjective Date Patient Seen: 07/31/18 Time Patient Seen: 09:28 Interval history: With recent dose of Ativan patient is quite somnolent he awakens and greets me at 1st but then falls asleep. He was able to dining significant problems although apparently quite a lot of pain. Family of 2 sisters and brother are in the room with several questions. Also they alert me to him having apparently quite a bit more pain after the procedure yesterday. Many of the same questions as far as what comes next what source of options are available, including the possibility of transport to [place] where most of his family lives. They did meet with Dr. Elise, who answered many other questions. Also spoke with Dr. Nava who reviewed the procedure yesterday and the findings apparently they did a brief microscopy that suggested mesothelioma but full pathology will be pending. Exam Vital Signs (past 8 hours): - 07/31/18 03:19 07/31/18 04:46 07/31/18 07:50 Temperature 97.4 F L 97.2 F L Pulse Rate 77 79 70 Respiratory Rate 23 14 Blood Pressure 94/58 L 114/64 105/65 Pulse Oximetry 97 94 93 Fraction of Inspired Oxygen 94 SaO2/FiO2 Ratio 4750 Oxygen Delivery Method Nasal Cannula Oxygen Flow Rate 6 Narrative Exam Narrative: Lying quietly no acute distress HEENT unremarkable neck benign chest shows diminished breath sounds in the right some crackles on the left. Abdomen soft nontender nondistended normoactive bowel tones, extremities benign neurologically nonfocal Objective Labs Result Diagrams: 07/31/18 05:29 07/30/18 06:15 Labs: Laboratory Results - last 24 hr 07/31/18 05:29 WBC 11.1 H RBC 3.47 L Hgb 11.0 L Hct 32.2 L MCV 92.6 MCH 31.7 MCHC 34.2 RDW 12.4 Plt Count 319 Neut % (Auto) 89.1 H Lymph % (Auto) 3.8 L [place] % (Auto) 6.9 Eos % (Auto) 0.0 L Baso % (Auto) 0.2 Neut # (Auto) 9900 H Lymph # (Auto) 400 L [place] # (Auto) 800 Eos # (Auto) 0 Baso # (Auto) 0 Assessment & Plan (1) Mass of upper lobe of right lung: Problem details: Reviewed status and once again emphasize the absolute need for tissue diagnosis based on pathology, now pending after biopsy done yesterday. May get some results in a day or 2 which could help start the treatment process but most definitive diagnosis may take a week or more. And definitive treatment will ensue. Everything weighs on that is still what could be done how aggressive we can be how successful we might be how quickly he will recover, travel ability and other things. My sense is he could probably be treated locally but there certainly is some possibility that a more distant treatment by me necessary including travel. Family questions answered in detail this in seemingly to their satisfaction Current visit: Yes Status: Acute (2) Pleural effusion on right: Problem details: O2 demand is up today but he does seem to be breathing a bit more comfortably. Extensive procedure yesterday leaving him in some pain that may be contributing to this but it sounds like they also may have done some things that might enhanced drainage and therefore hopefully increase his comfort in breathing. Current visit: Yes Status: Acute (3) Acute respiratory failure: Problem details: O2 demand again is up see above. Qualifiers: Respiratory failure complication: Current visit: Yes Status: Acute Plan: Assessment/Plan Narrative: Again everything is contingent upon diagnosis through tissue biopsy. At this point he is relying on chest tube and would not feel comfortable sending him home with that at this point. Depending on how long it takes to get tissue pathology back he might need a consider a SNF. But hopefully if we can get treatment started that may forego that knee. Continue to follow other issues, will place a PICC line as the IV access has been difficult. 30 min spent with family and care discussion Quality VTE Deep Vein Thrombosis/Pulmonary Embolism Present on Admission: No
[2018-07-31] MEDS: DEXTROSE 5%-0.45% NS 1,000 ML 80 ML IV ×2 (09:47→20:31)
[2018-07-31] MEDS: ALBUTEROL 2.5 MG/3 ML NEB (ADULT) INH ×3 (11:22→19:02)
--- NOTE | 2018-07-31 11:23 | DI.RAD.S_ITS ---
PROCEDURE: XR CHEST 1V INDICATIONS: picc placed TECHNIQUE: One view of the chest was acquired. COMPARISON: [facility], CR, XR CHEST 1V, 07/30/2018, 18:31. [facility], CR, XR CHEST 1V, 07/27/2018, 12:45. FINDINGS: Surgical changes and devices: Right-sided chest tube in stable position except it has appeared to be retracted proximally, with its side-port now at the level of the external border of the right lateral ribs and the tube remaining within the pleural space. PICC line has been placed with tip in the distal SVC. Lungs and pleura: No pleural effusions or pneumothorax. Lungs are unchanged with asymmetric radiodensity over the right lung, in this patient with right pleural thickening and a superior right mediastinal mass. Possible pneumonia left mid and lower lung, mild in severity.. Mediastinum: Mediastinal contours appear normal. Heart size is normal. Bones and chest wall: No suspicious bony lesions. Overlying soft tissues appear unremarkable. IMPRESSION: The chest tube present on the right has retracted proximally, inferiorly, with its side-port now at the external border of the ribs rather than within the chest pleural space itself. PICC line in normal position. Otherwise no change. Dictated by: Mitul Mills M.D. on 07/31/2018 at 12:05 Approved by: Mitul Mills M.D. on 07/31/2018 at 12:07
--- NOTE | 2018-07-31 12:08 | PC.NURSE ---
Addendum entered by Rosalinda Goode R.N. 07/31/18 14:10: PAIN/INTEG - Dr. Hubbard in to check on chest tube, removed dsg, has xeroform guaze at 2 sites, saturated 4x4 removed, area cleaned and replaced w/guaze over, abd pad and hypafix tape, marilou with a bolus of 1mg iv morphine given before dsg, able to sit up in bed throughout, then bed bath given. Original Note: AM NOTE - pt awakens easily, keeps eyes closed at times, becomes very anxious with any movement around his CT tube site, cries out with pain, has morphine support assistant 0.5mg contin w//20/6mg demand and is able to push the button, the CT tube has serosang drainage in tubing, no air leak, sob with speech, 6L 94%, when off for po intake, sat decr to 88%,no crepitus palpated, 20cm suction, bs coarse, dim around CT site, given 1mg iv ativan and pt became calm, RR unlabored, SL PICC line placed RUE.
--- NOTE | 2018-07-31 12:56 | PT.IPTN ---
Current Diagnoses Nicotine dependence, unspecified, in remission (07/22/18) Pleural effusion, not elsewhere classified (07/22/18) Acute respiratory failure, unspecified whether with hypoxia or hypercapnia (07/22/18) Respiratory failure, unspecified, unspecified whether with hypoxia or hypercapnia (07/22/18) Localized swelling, mass and lump, trunk (07/22/18) Other nonspecific abnormal finding of lung field (07/22/18) Surgery Performed Operation Date: 07/26/18 13:45 Actual Procedures p Bronchoscopy(Not Applicable) - Dk Hubbard MD s Chest Tube Placement(Right) - Dk Hubbard MD Operation Date: 07/30/18 14:00 Actual Procedures p Thoracoscopy - Dk Hubbard MD Physical Therapy Treatment Note M3 PT-IP Subjective Start: 07/31/18 12:54 Freq: NEEDED Status: Active Protocol: Document 07/31/18 12:56 AB (Rec: 07/31/18 12:56 AB [id number]) Subjective Physical Therapy Visit Type Notes Checked on pt but was having a PICC line put on and RT will be working with him afterwards .
[2018-07-31] MEDS: BACLOFEN 10 MG TABLET PO ×2 (14:22→20:22)
--- NOTE | 2018-07-31 16:08 | PT.IIE ---
Current Diagnoses Nicotine dependence, unspecified, in remission (07/22/18) Pleural effusion, not elsewhere classified (07/22/18) Acute respiratory failure, unspecified whether with hypoxia or hypercapnia (07/22/18) Respiratory failure, unspecified, unspecified whether with hypoxia or hypercapnia (07/22/18) Localized swelling, mass and lump, trunk (07/22/18) Other nonspecific abnormal finding of lung field (07/22/18) Surgery Performed Operation Date: 07/26/18 13:45 Actual Procedures p Bronchoscopy(Not Applicable) - Dk Hubbard MD s Chest Tube Placement(Right) - Dk Hubbard MD Operation Date: 07/30/18 14:00 Actual Procedures p Thoracoscopy - Dk Hubbard MD Surgical History (Last Reviewed 07/25/18 @ 21:26 by Dk Hubbard MD) No history of previous surgery (Acute) Medical History (Last Reviewed 07/25/18 @ 21:26 by Dk Hubbard MD) Tobacco abuse, in remission (Acute) Patient denies medical problems (Acute) Physical Therapy Inpatient Evaluation/Re-Eval M1 PT/OT-IP Prior Functional Status Start: 07/31/18 12:54 Freq: NEEDED Status: Active Protocol: Document 07/31/18 16:08 AB (Rec: 07/31/18 17:23 AB [id number]) Medical Review Prior Functional Status Medical History Reviewed Yes Communication pt with drowsiness and confusion Mobility and Gait family stated that pt is independent with all mobilities and ambulation without AD Social History Household Members family Living Arrangements House Number of Floors (Floors) One Floor Number of Stairs To Enter/Railing? 1 step to enter Home Environment Standard Height Toilet Tub/Shower Home Equipment Hand Held Shower Additional Social History Comment pt's brother plans to stay with pt indefinitely to assist him M2 PT-IP Current Condition Start: 07/31/18 12:54 Freq: NEEDED Status: Active Protocol: Document 07/31/18 16:08 AB (Rec: 07/31/18 17:23 AB [id number]) Physical Therapy Current Condition Current Condition Evaluation Date 07/31/18 Treatment Diagnosis R upper lobe lung mass; generalized weakness Onset Date 07/22/18 Precautions Other Precautions chest tube; O2 sat, O2 at 2L/ min M3 PT-IP Subjective Start: 07/31/18 12:54 Freq: NEEDED Status: Active Protocol: Document 07/31/18 16:08 AB (Rec: 07/31/18 17:23 AB [id number]) Subjective Physical Therapy Visit Type Type Initial Evaluation Visit Start Time 16:08 Visit Stop Time 17:00 Total Visit Minutes 52 Number of NEPHROLOGY NURSE Visits 0 Physical Therapy Visit Comments Patient Comments pt willing to do PT Therapy Pain Assessment Pain When Pain Assessed At Rest Pain Present Pain Present Pain Reported Location Right Chest Intensity 4 Scale Used Numeric (1 - 10) Pain Management Techniques Timing of Activity with Medications M4 PT-IP Mobility and Gait Start: 07/31/18 12:54 Freq: NEEDED Status: Active Protocol: Document 07/31/18 16:08 AB (Rec: 07/31/18 17:23 AB [id number]) PT-Bed Mobility Assessment Supine to Sit Supine to Sit Maximum Assistance Head of Bed Elevated PT-Transfer Assessment Sit to and From Stand Sit to and from Stand Maximum Assistance 2 Person Assistance Use of Upper Extremities Equipment Transfer Assistive Device Gait Belt Front Wheeled Walker Orthotic/Prosthetic Devices or Brace: No Transfers Transfer Destination Chair Transfer Technique Stand Step Pivot Transfer Ability Level of Assist Maximum Assistance 1 Person Assistance 2 Person Assistance Use of Upper Extremities Comments Mobility Comments pO2 sat decreased to ~ 86% with mobility. pt with confusion and drowsy requiring constant cues to complete tasks. family present during PT session. pt positioned on chair. call light within reach. left pt with family in room Gait Assessment Comments Gait Comments unable at this time PT-Balance Assessment Sitting Balance and Reactions Static Sitting Balance Ability Good Dynamic Sitting Balance Ability Fair Standing Balance and Reactions Static Standing Balance Ability Fair Dynamic Standing Balance Ability Fair Device Used FWW M5 PT-IP Objective Assessments Start: 07/31/18 12:54 Freq: NEEDED Status: Active Protocol: Document 07/31/18 16:08 AB (Rec: 07/31/18 17:23 AB [id number]) Orientation Orientation/Cognition Level of Alertness Confusional State Orientation Name Place Safety Awareness Decreased Safety Awareness Gross Range of Motion Lower Extremity ROM Assessment Within Functional Limits Strength Lower Extremity Strength Assessment Within Functional Limits Muscle Tone Muscle Tone WNL Yes M6 PT-IP Treatment Start: 07/31/18 12:54 Freq: NEEDED Status: Active Protocol: Document 07/31/18 16:08 AB (Rec: 07/31/18 17:23 AB [id number]) Physical Therapy Treatment Education Education Provided Safety Other Treatments Other Treatment Performed informed family regarding possible equipement needs for home M7 PT-IP Assessment and Plan Start: 07/31/18 12:54 Freq: NEEDED Status: Active Protocol: Document 07/31/18 16:08 AB (Rec: 07/31/18 17:23 AB [id number]) PT Summary Assessment and Plan Potential Rehabilitation Potential Fair Status of Condition at Evaluation Unstable Summary Impairments Pain ROM Strength Balance Coordination Cognition Bed Mobility Transfers Gait Activity Tolerance Assessment Summary pt requiring 2 person assist with transfer at this time and unable to ambulate due to decrease in O2 sat and confusion. D/c plan depending on progress but at this time will require SNF rehab to improve strength and functional mobililty prior to d/c home. will continue to assess. Goals Bed Mobility Goal Standby Assistance Transfer Goal Standby Assistance Front Wheeled Walker Gait Goal Standby Assistance Front Wheel Walker Gait Distance 75 Other Goals up/down 1 steps using FWW CGA Days to Meet Goals 10 Frequency of Treatment Frequency Of Treatment Once a Day Treatment Plan Physical Therapy Treatment Plan Bed Mobility Training Transfer Training Gait Training Therapeutic Exercise Balance Retraining Discharge Planning Neuromuscular Re-ed Coordination Retraining Manual Therapy Other Recommendations and Next Treatment transfers, ambulation if Focus appropriate Recommendations To Nursing Amount of Assist Needed 2 Person Assist Discharge Recommendations PT Discharge Recommendations SNF Rehab Equipment Needed for Home Before FWW Discharge
--- NOTE | 2018-07-31 18:35 | P.PN_ITS ---
Subjective Date Patient Seen: 07/30/18 Time Patient Seen: 08:00 Interval history: Met with patient and his 2 sisters and brother who are at bedside. Patient is currently NPO but is wondering if he can have his mouth rinsed out because he feels very parched. He awakens and states he does not have any pain but then is talking about [place] and [place] and things I can't quite understand. He denies any significant pain. He continues to have from his chest to an continues to require oxygen. He is scheduled to have a mediastinoscopy for biopsy of the lung mass for tissue so that we can determine treatment prognosis 6 . Exam Vital Signs (past 8 hours): - 07/31/18 11:00 07/31/18 11:23 07/31/18 12:25 Temperature 97.7 F Pulse Rate 75 75 Respiratory Rate 18 12 Blood Pressure 86/47 L Pulse Oximetry 94 93 91 07/31/18 15:05 07/31/18 15:50 Temperature 97.5 F L Pulse Rate 72 77 Respiratory Rate 17 18 Blood Pressure 89/56 L Pulse Oximetry 94 94 Fraction of Inspired Oxygen 94 SaO2/FiO2 Ratio 4750 Oxygen Delivery Method Nasal Cannula Oxygen Flow Rate 6 Narrative Exam Narrative: Lying comfortably vision and right-sided lower lobe chest tube in place. He is conversant and cooperative but difficult to understand what he is talking about. HEENT shows no mucosal lesions no evidence of thrush and mucous membranes are moist and pink Neck: Supple without masses Chest: Diffuse rhonchi and decreased breath sounds in the right base but no wheezes Cor: Regular rate and rhythm with distant S1 and S2 Abdomen: Positive bowel sounds x4 nontender, no hepatosplenomegaly Extremities no edema, pulses intact Objective Labs Result Diagrams: 07/31/18 05:29 07/30/18 06:15 Labs: Laboratory Results - last 24 hr 07/31/18 05:29 WBC 11.1 H RBC 3.47 L Hgb 11.0 L Hct 32.2 L MCV 92.6 MCH 31.7 MCHC 34.2 RDW 12.4 Plt Count 319 Neut % (Auto) 89.1 H Lymph % (Auto) 3.8 L [place] % (Auto) 6.9 Eos % (Auto) 0.0 L Baso % (Auto) 0.2 Neut # (Auto) 9900 H Lymph # (Auto) 400 L [place] # (Auto) 800 Eos # (Auto) 0 Baso # (Auto) 0 Assessment & Plan Plan: Assessment/Plan Narrative: 63-year-old male with new lung mass and pleural effusion who was hospitalized for this reason. We still do not have tissue for diagnosis to determine treatment options and prognosis. He is scheduled for biopsy today. Will continue with CT tube. Will continue with supplemental oxygen and pain medication as needed. Can make further plans once we have a definitive diagnosis. Oncology has been consulted but cannot advises further until we have tissue. Family understands. He will continue NPO until the procedure. Assessment 2. Anemia secondary to same Plan. Continue to follow Assessment 3. Hyponatremia suspect related to lung mass. No obvious symptoms secondary to this. Plan: Will continue to monitor. Quality VTE Deep Vein Thrombosis/Pulmonary Embolism Present on Admission: No
[2018-07-31] MEDS: GABAPENTIN 300 MG CAPSULE PO (20:22)
--- NOTE | 2018-07-31 21:25 | PM.PNPO.1 ---
Subjective Date Patient Seen: 07/31/18 Time Patient Seen: 10:25 Interval history: Patient post thoracoscopy and pleural biopsy. He is having some pain. He also has developed hiccups. They are intermittent. Exam Vital Signs (past 8 hours): - 07/31/18 15:05 07/31/18 15:50 07/31/18 19:02 Temperature 97.5 F L Pulse Rate 72 77 74 Respiratory Rate 17 18 18 Blood Pressure 89/56 L Pulse Oximetry 94 94 96 07/31/18 19:46 Temperature 97.7 F Pulse Rate 75 Respiratory Rate 20 Blood Pressure 102/60 Pulse Oximetry 93 Fraction of Inspired Oxygen 94 SaO2/FiO2 Ratio 4750 Oxygen Delivery Method Nasal Cannula Oxygen Flow Rate 6 Narrative Exam Narrative: Distant breath sounds on the right. Left moving air well. Dressing is saturated with drainage. Drainage from the chest tube has become blood-tinged rather than bloody. There is good fluctuation in the fluid in the tubing. I do not appreciate an air leak. Objective Labs Result Diagrams: 07/31/18 05:29 07/30/18 06:15 Labs: Laboratory Results - last 24 hr 07/31/18 05:29 WBC 11.1 H RBC 3.47 L Hgb 11.0 L Hct 32.2 L MCV 92.6 MCH 31.7 MCHC 34.2 RDW 12.4 Plt Count 319 Neut % (Auto) 89.1 H Lymph % (Auto) 3.8 L [place] % (Auto) 6.9 Eos % (Auto) 0.0 L Baso % (Auto) 0.2 Neut # (Auto) 9900 H Lymph # (Auto) 400 L [place] # (Auto) 800 Eos # (Auto) 0 Baso # (Auto) 0 Assessment & Plan Post-op Postoperative Procedures Operation Date: 07/26/18 13:45 Actual Procedures Side Surgeon p Bronchoscopy Not Applicable Dk Hubbard MD s Chest Tube Placement Right Dk Hubbard MD Operation Date: 07/30/18 14:00 Actual Procedures Side Surgeon p Thoracoscopy Dk Hubbard MD Postoperative day: 1 Postoperative status narrative: Doing as expected. We will check his labs in the morning. Postoperative plan narrative: Added baclofen in the hopes of alleviating his hiccups. This may be difficult to do however given what's going on in his chest. Await the pathology. Quality VTE Deep Vein Thrombosis/Pulmonary Embolism Present on Admission: No
--- NOTE | 2018-07-31 22:52 | PC.NURSE ---
Joanne shift note: Patient awake, and alert. Family at bedside providing supportive care. 200 ml serousanguinous drainage, chest tube. Dressing to chest tube, clean dry and intact, securely placed. Up out of bed with PT, ambulated to chair, 2 PA with a FWW and gait belt use. Voiding. 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 Call light within reach
[2018-08-01] VITALS (9 sets, daily range): BP systolic 89–107; BP diastolic 47–64; PULSE 70–91; RESP 16–26; TEMP 36.3–36.7; O2SAT 91–94
--- NOTE | 2018-08-01 | DI.RAD.S_ITS ---
PROCEDURE: XR CHEST 1V INDICATIONS: Following effusion TECHNIQUE: One view of the chest was acquired. COMPARISON: [facility], , XR CHEST 1V, 07/31/2018, 11:36. FINDINGS: Surgical changes and devices: A right chest tube is unchanged in position. The right PICC line has been retracted slightly and projects to the superior vena cava. Lungs and pleura: Right pleural thickening is stable. Asymmetric radiodensity over the right lung is stable, consistent with pleural thickening in the superior mediastinal mass. Focal atelectasis in the left lower lung field is slightly improved. Mediastinum: Mediastinal contours appear normal. Heart size is normal. Bones and chest wall: No suspicious bony lesions. Overlying soft tissues appear unremarkable. IMPRESSION: 1. Lines and tubes in satisfactory position. 2. Stable appearance of right hemithorax. Slight improved focal left atelectasis. Dictated by: Tello Root M.D. on 08/01/2018 at 9:51 Approved by: Tello Root M.D. on 08/01/2018 at 9:54
--- NOTE | 2018-08-01 05:09 | PC.NURSE ---
Addendum entered by Madelaine Trent R.N. 08/01/18 05:11: Pt was easily re-oriented, assist with use of urinal and assisted back to bed. Pt stated that he was being to feel less fussy headed by the time he was back in bed. Drsg to chest tube is intact with faint shadowing on the drsg, 350cc out of chest tube this shift. Pt denies pain with, recieving morphine at a basil rate via FINANCIAL DIRECTOR pump. O2 in the mid 90's on 6L, NC. Original Note: NOC Shift: Pt slept well most of the night, woke at 0445 with mild confusion and disorientation. Easily reop
[2018-08-01] MEDS: MORPHINE PCA 30 MG/30 ML PCA.VIAL IV ×3 (05:56→20:47)
[2018-08-01 06:14] LABS: Add Manual Diff / Slide Review NO; Basophils Absolute Auto 0 /uL (0-100); Basophils Percent Auto 0.2 % (0-2); Eosinophils Absolute Auto 0 /uL (0-450); Hematocrit 31.1 % (41-53); Hemoglobin 10.3 g/dL (13.5-17.5); Lymphocytes Absolute Auto 600 /uL (1100-4500); Lymphocytes Percent Auto 4.2 % (25-40); Mean Corpuscular HGB Conc 33.2 % (30-36); Mean Corpuscular Hemoglobin 31.2 PG (26-34); Monocytes Absolute Auto 1700 /uL (0-900); Monocytes Percent Auto 11.2 % (3-14); Neutrophils Absolute Auto 12900 /uL (1500-7000); Neutrophils Percent Auto 84.4 % (50-75); Platelet Count 340 X10^3/uL (150-400); Red Blood Cell Count 3.31 X10^6/uL (4.5-5.9); Red Cell Distribution Width 12.6 % (11.6-14.8); White Blood Cell Count 15.3 X10^3/uL (4.5-11.0)
[2018-08-01 06:18] LABS: Alanine Aminotransferase 29 IU/L (21-72); Albumin 2.5 g/dL (3.5-5.0); Albumin Globulin Ratio 0.9 (1.0-2.8); Alkaline Phosphatase 58 U/L (38-126); Aspartate Aminotransferase 40 IU/L (17-59); BUN Creatinine Ratio 16.7 (6-22); Bilirubin Total 0.3 mg/dL (0.2-1.3); Blood Urea Nitrogen 15 mg/dL (9-20); Calcium 8.3 mg/dL (8.4-10.2); Carbon Dioxide 29 mmol/L (22-32); Chloride 96 mmol/L (98-107); Estimated Glomerular Filt Rate > 60.0 mL/min (>60); Globulin 2.7 g/dL (1.7-4.1); Glucose 125 mg/dL (80-110); HEMOLYSIS < 15 (0-50); Potassium 4.5 mmol/L (3.4-5.1); Sodium 132 mmol/L (137-145); Total Protein 5.2 g/dL (6.3-8.2)
[2018-08-01] MEDS: ALBUTEROL 2.5 MG/3 ML NEB (ADULT) INH ×3 (06:31→19:45)
[2018-08-01] MEDS: DEXTROSE 5%-0.45% NS 1,000 ML 80 ML IV ×2 (08:51→20:46)
--- NOTE | 2018-08-01 08:53 | PM.PN.1 ---
Subjective Date Patient Seen: 08/01/18 Time Patient Seen: 08:54 Interval history: Found sleeping arousable complains of some pain but otherwise stable. Apparently had some agitated confusion during the night but overall seems to be resting well. First restful night it seems in some time. Baclofen and gabapentin had been started last night for hiccups and chest wall pain respectively. One sister is present today we discussed current status. He is quite anxious to get his DPOA updated so will work with that Exam Vital Signs (past 8 hours): - 08/01/18 05:00 08/01/18 06:31 Temperature 97.6 F Pulse Rate 71 70 Respiratory Rate 20 22 Blood Pressure 107/64 Pulse Oximetry 93 94 Fraction of Inspired Oxygen 94 SaO2/FiO2 Ratio 4750 Oxygen Delivery Method Nasal Cannula Oxygen Flow Rate 6 Narrative Exam Narrative: Resting quietly breathing seemed unlabored. HEENT unremarkable neck benign chest shows some air movement on the right although quite noisy somewhat rhonchorous on the left as well but no crackles or wheezes. Heart regular without murmur abdomen soft nondistended normoactive bowel tones extremities benign neurologically benign. Objective Labs Result Diagrams: 08/01/18 05:45 08/01/18 05:45 Labs: Laboratory Results - last 24 hr 08/01/18 08/01/18 05:45 05:45 WBC 15.3 H RBC 3.31 L Hgb 10.3 L Hct 31.1 L MCV 94.0 MCH 31.2 MCHC 33.2 RDW 12.6 Plt Count 340 Neut % (Auto) 84.4 H Lymph % (Auto) 4.2 L [place] % (Auto) 11.2 Eos % (Auto) 0.0 L Baso % (Auto) 0.2 Neut # (Auto) 04936 H Lymph # (Auto) 600 L [place] # (Auto) 1700 H Eos # (Auto) 0 Baso # (Auto) 0 Sodium 132 L Potassium 4.5 Chloride 96 L Carbon Dioxide 29 BUN 15 Creatinine 0.90 Estimated GFR > 60.0 BUN/Creatinine Ratio 16.7 Glucose 125 H Calcium 8.3 L Total Bilirubin 0.3 AST 40 ALT 29 Alkaline Phosphatase 58 Total Protein 5.2 L Albumin 2.5 L Globulin 2.7 Albumin/Globulin Ratio 0.9 L Assessment & Plan (1) Mass of upper lobe of right lung: Problem details: Reviewed status and once again emphasize the absolute need for tissue diagnosis based on pathology, now pending after biopsy done yesterday. May get some results in a day or 2 which could help start the treatment process but most definitive diagnosis may take a week or more. And definitive treatment will ensue. Everything weighs on that is still what could be done how aggressive we can be how successful we might be how quickly he will recover, travel ability and other things. My sense is he could probably be treated locally but there certainly is some possibility that a more distant treatment by me necessary including travel. Family questions answered in detail this in seemingly to their satisfaction Current visit: Yes Status: Acute (2) Pleural effusion on right: Problem details: O2 demand is up today but he does seem to be breathing a bit more comfortably. Also question of pneumonia, see below. Current visit: Yes Status: Acute (3) Acute respiratory failure: Problem details: O2 demand again is up see above. Qualifiers: Respiratory failure complication: Current visit: Yes Status: Acute (4) Pneumonia: Problem details: His white count is up today and with this ongoing O2 demand suspect this could be an issue, given the timing likely nosocomial, will treat. Current visit: Yes Status: Acute (5) Hallucinosis: Problem details: Noted over the past 12 hr or so he is now on 2 medications which might contribute to this but they also provide a more restful sleep. So hesitant to change it just yet. Current visit: Yes Status: Acute Plan: Assessment/Plan Narrative: Will start antibiotic, follow labs, get a chest x-ray today did see if any changes have occurred. Otherwise waiting game ongoing. Family remains supportive. Quality VTE Deep Vein Thrombosis/Pulmonary Embolism Present on Admission: No
[2018-08-01] MEDS: LORazepam 2 MG/ML SYRINGE 1 MG IV (08:55)
[2018-08-01] MEDS: GABAPENTIN 300 MG CAPSULE PO ×2 (08:56→20:40)
[2018-08-01] MEDS: CEFTRIAXONE 1 GM/50 ML FROZ.PIGGY IV ×2 (08:56→20:39)
[2018-08-01] MEDS: BACLOFEN 10 MG TABLET PO ×2 (08:56→20:41)
--- NOTE | 2018-08-01 10:08 | PT.IPTN ---
Current Diagnoses Nicotine dependence, unspecified, in remission (07/22/18) Other psychotic disorder not due to a substance or known physiological condition (07/22/18) Pneumonia, unspecified organism (07/22/18) Pleural effusion, not elsewhere classified (07/22/18) Acute respiratory failure, unspecified whether with hypoxia or hypercapnia (07/22/18) Respiratory failure, unspecified, unspecified whether with hypoxia or hypercapnia (07/22/18) Localized swelling, mass and lump, trunk (07/22/18) Other nonspecific abnormal finding of lung field (07/22/18) Surgery Performed Operation Date: 07/26/18 13:45 Actual Procedures p Bronchoscopy(Not Applicable) - Dk Hubbard MD s Chest Tube Placement(Right) - Dk Hubbard MD Operation Date: 07/30/18 14:00 Actual Procedures p Thoracoscopy - Dk Hubbard MD Physical Therapy Treatment Note M2 PT-IP Current Condition Start: 07/31/18 12:54 Freq: NEEDED Status: Active Protocol: Document 07/31/18 16:08 AB (Rec: 07/31/18 17:23 AB [id number]) Physical Therapy Current Condition Current Condition Evaluation Date 07/31/18 Treatment Diagnosis R upper lobe lung mass; generalized weakness Onset Date 07/22/18 Precautions Other Precautions chest tube; O2 sat, O2 at 2L/ min M3 PT-IP Subjective Start: 07/31/18 12:54 Freq: NEEDED Status: Active Protocol: Document 08/01/18 10:08 GGD (Rec: 08/01/18 10:08 GGD [id number]) Subjective Physical Therapy Visit Type Notes Per RN, pt is sleeping and wait until afternoon to see pt . Discharge Recommendations PT Discharge Recommendations SNF Rehab Equipment Needed for Home Before FWW Discharge
--- NOTE | 2018-08-01 10:25 | PC.NURSE ---
Addendum entered by Rosalinda Goode R.N. 08/01/18 14:22: RESP/ANXIETY - pt became very anxious and sitting upright stating he could not breath, 02 down 88%, breathing labored, CT connections checked, no air leak as noted earlier am, serosang in tubing, does have expir wheezes throughout, called RT who provided a treatment now, as there were mult family members and concrete worker around pt bed, req that they go into waiting area while his breathing was assessed and monitored, after tmt, resp changed to high flow cannula at 9L and sat incr to 93%, Dr. Fam contacted and episode and RR distress described, new order for contin morphine to incr to 1mg/hr, and contin was adjusted, demand same 08/28/29, after tmt pt became more relaxed with family at bedside, advised to limit to several at a time for now and continue to meet SW in the waiting area to help pt relax for now. Original Note: AM NOTE - pt awakened when family arrived, pt became anxious and tearful remembering that he was dreaming or halluc earlier am, in and discussed medications, no changes at this time to meds, as pt continued tearful, statements I'm scared, I'm one step closer to glory, discussed ativan and pt agreed, 1mg given, CT tube dsg with shadow drainage, 20cm, some bubbling at air leak level 1, serosang in tubing, hr 74, 02 sat 90-94% 6L, bs w/expir wheeze upper airways, coarse l and dim r, after chest xr completed, assisted x 2 person to stand and bedside and voided, returned bed and positioned for comfort.
--- NOTE | 2018-08-01 13:45 | PT.IPTN ---
Current Diagnoses Nicotine dependence, unspecified, in remission (07/22/18) Other psychotic disorder not due to a substance or known physiological condition (07/22/18) Pneumonia, unspecified organism (07/22/18) Pleural effusion, not elsewhere classified (07/22/18) Acute respiratory failure, unspecified whether with hypoxia or hypercapnia (07/22/18) Respiratory failure, unspecified, unspecified whether with hypoxia or hypercapnia (07/22/18) Localized swelling, mass and lump, trunk (07/22/18) Other nonspecific abnormal finding of lung field (07/22/18) Surgery Performed Operation Date: 07/26/18 13:45 Actual Procedures p Bronchoscopy(Not Applicable) - Dk Hubbard MD s Chest Tube Placement(Right) - Dk Hubbard MD Operation Date: 07/30/18 14:00 Actual Procedures p Thoracoscopy - Dk Hubbard MD Physical Therapy Treatment Note M2 PT-IP Current Condition Start: 07/31/18 12:54 Freq: NEEDED Status: Active Protocol: Document 07/31/18 16:08 AB (Rec: 07/31/18 17:23 AB [id number]) Physical Therapy Current Condition Current Condition Evaluation Date 07/31/18 Treatment Diagnosis R upper lobe lung mass; generalized weakness Onset Date 07/22/18 Precautions Other Precautions chest tube; O2 sat, O2 at 2L/ min M3 PT-IP Subjective Start: 07/31/18 12:54 Freq: NEEDED Status: Active Protocol: Document 08/01/18 13:45 GGD (Rec: 08/01/18 14:38 GGD [id number]) Subjective Physical Therapy Visit Type Notes Hold per RN, pt needing increase in O2 to 10 L. will check on pt in AM. Focus appropriate Recommendations To Nursing Amount of Assist Needed 2 Person Assist Discharge Recommendations PT Discharge Recommendations SNF Rehab Equipment Needed for Home Before FWW Discharge
--- NOTE | 2018-08-01 13:45 | CM.DPNOTE ---
Addendum entered by Pina Shane, [employer] WORK[employer] 08/01/18 15:14: Received update from Marla Peace-Laws after her time w/pt's family. Pt continues to be quite anxious when awake, sons at bedside also quite anxious today. Marla will continue to follow. Family requested this [employer] WORK[employer] contact notary since pt was awake and A+O; contacted Isela in med records and she was able to respond w/in 10 minutes. Pt will likely designate one DPOA w/one b/u (?) Following closely. Possible need for Hospice Info Visit, this [employer] hanging back today, likely more coordination to come over the next 48 hrs. JW Original Note: Coordinated w/ Dr Fam this morning; he indicated that results from pathology are still unknown. He is hopeful that once these are known pt can make decisions on next steps. Dr Cheema does not feel it's realistic for pt to DC home w/the chest tube and states he is hopeful there is a treatment course offered by Oncology that could relieve current symptoms. Family has asked Dr Cheema about DPOA and other advanced Directives and he requested this [employer] f/u on these requests to clarify what is needed (?) This [employer] WORK[employer] then requested by pt's brother Jonathan. According to our conversation: Pt had a difficult night last night, hallucinating; cognition continues to wax and wane today. Jonathan tearful throughout our conversation and admits he is my brother and my best friend. According to Jonathan, pt has requested he step into the role of DPOA and furthermore, a general/financial DPOA that can assist in his estate and what happens for his children once he passes. Jonathan asks; do I call a financial professional for this or? This [employer] WORK[employer] made clear that pt will not be able to designate any strategic partnership representative if not lucid/ A+O and Jonathan aware. This [employer] WORK[employer] will plan to coordinate w/ Oncology SWer Marla to get input, Jonathan appreciative. Then spent time w/ Jonathan encouraging him to further discuss pt's wishes when he is able to engage in a conversation; what are his goals of care? What are the questions to ask the Oncologist when results are back i.e. If chemo is available what will it offer? What is the current prognosis? What are the risks vs benefits of chemo? How does pt want to live in the remainder of his life? Jonathan understanding and hopes he can glean more information on above, advocate on his brother's behalf and also contact/update other family. Functionally, pt remains very compromised and continues to experience out of control symptoms daily. TC placed to Marla Peace-Laws; updated w/summary of above and requested her expertise and input. Marla to f/u at the pt's bedside this afternoon. [employer] team following along very closely. INGE Velazquez
--- NOTE | 2018-08-01 16:54 | PC.NURSE ---
IN TO SEE PATIENT WITH , NO NEW ORDERS. CONTINUOUS MORPHINE INCREASE TO 1MG/HR SEEMING TO HELP PATIENT ,SISTER CONFIRMS.
--- NOTE | 2018-08-01 17:16 | P.PN_ITS ---
Subjective Date Patient Seen: 08/01/18 Time Patient Seen: 17:00 Interval history: Patient is sleeping soundly. I decided not to wake him. There is very little that I have to offer. Exam Vital Signs (past 8 hours): - 08/01/18 12:15 08/01/18 14:14 08/01/18 15:39 Temperature 97.6 F Pulse Rate 74 91 H 87 Respiratory Rate 16 26 H 22 Blood Pressure 89/60 L 89/47 L Pulse Oximetry 93 91 94 Fraction of Inspired Oxygen 94 SaO2/FiO2 Ratio 4750 Oxygen Delivery Method Nasal Cannula Oxygen Flow Rate 6 Objective Labs Result Diagrams: 08/01/18 05:45 08/01/18 05:45 Labs: Laboratory Results - last 24 hr 08/01/18 08/01/18 05:45 05:45 WBC 15.3 H RBC 3.31 L Hgb 10.3 L Hct 31.1 L MCV 94.0 MCH 31.2 MCHC 33.2 RDW 12.6 Plt Count 340 Neut % (Auto) 84.4 H Lymph % (Auto) 4.2 L [place] % (Auto) 11.2 Eos % (Auto) 0.0 L Baso % (Auto) 0.2 Neut # (Auto) 78444 H Lymph # (Auto) 600 L [place] # (Auto) 1700 H Eos # (Auto) 0 Baso # (Auto) 0 Sodium 132 L Potassium 4.5 Chloride 96 L Carbon Dioxide 29 BUN 15 Creatinine 0.90 Estimated GFR > 60.0 BUN/Creatinine Ratio 16.7 Glucose 125 H Calcium 8.3 L Total Bilirubin 0.3 AST 40 ALT 29 Alkaline Phosphatase 58 Total Protein 5.2 L Albumin 2.5 L Globulin 2.7 Albumin/Globulin Ratio 0.9 L Assessment & Plan Post-op Postoperative Procedures Operation Date: 07/26/18 13:45 Actual Procedures Side Surgeon p Bronchoscopy Not Applicable Dk Hubbard MD s Chest Tube Placement Right Dk Hubbard MD Operation Date: 07/30/18 14:00 Actual Procedures Side Surgeon p Thoracoscopy Dk Hubbard MD Postoperative status narrative: Hink up seemed to be gone. Patient resting comfortably at this time. Did eat some dinner. We are waiting the pathology report. Quality VTE Deep Vein Thrombosis/Pulmonary Embolism Present on Admission: No
[2018-08-02] VITALS (10 sets, daily range): BP systolic 85–109; BP diastolic 51–62; PULSE 80–99; RESP 16–22; TEMP 36.2–37.6; O2SAT 85–100
[2018-08-02] MEDS: MORPHINE PCA 30 MG/30 ML PCA.VIAL IV ×4 (02:33→21:44)
[2018-08-02] MEDS: BACLOFEN 10 MG TABLET PO (04:18)
[2018-08-02] MEDS: LORazepam 2 MG/ML SYRINGE 1 MG IV ×2 (04:35→17:52)
--- NOTE | 2018-08-02 06:08 | PC.NURSE ---
Pt per family, less confused this shift then previous. He used 11.2 mg MS [employer]INE[employer] CONSTRUCTION and had [address]. Sister is requesting that Baclofin be given more often, QID, stating it is very helpful with patient's pain. Will pass on.
[2018-08-02 06:17] LABS: Add Manual Diff / Slide Review NO; Basophils Absolute Auto 0 /uL (0-100); Basophils Percent Auto 0.1 % (0-2); Eosinophils Absolute Auto 200 /uL (0-450); Eosinophils Percent Auto 1.9 % (2-4); Hematocrit 27.8 % (41-53); Hemoglobin 9.4 g/dL (13.5-17.5); Lymphocytes Absolute Auto 900 /uL (1100-4500); Lymphocytes Percent Auto 8.8 % (25-40); Mean Corpuscular HGB Conc 33.6 % (30-36); Mean Corpuscular Hemoglobin 31.5 PG (26-34); Mean Corpuscular Volume 93.6 fL (80-100); Monocytes Absolute Auto 1400 /uL (0-900); Monocytes Percent Auto 14.7 % (3-14); Neutrophils Absolute Auto 7300 /uL (1500-7000); Neutrophils Percent Auto 74.5 % (50-75); Platelet Count 317 X10^3/uL (150-400); Red Blood Cell Count 2.97 X10^6/uL (4.5-5.9); Red Cell Distribution Width 12.8 % (11.6-14.8); White Blood Cell Count 9.8 X10^3/uL (4.5-11.0)
[2018-08-02 06:31] LABS: Alanine Aminotransferase 37 IU/L (21-72); Albumin 2.2 g/dL (3.5-5.0); Albumin Globulin Ratio 0.9 (1.0-2.8); Alkaline Phosphatase 54 U/L (38-126); Aspartate Aminotransferase 49 IU/L (17-59); BUN Creatinine Ratio 16.7 (6-22); Bilirubin Total 0.1 mg/dL (0.2-1.3); Blood Urea Nitrogen 15 mg/dL (9-20); Calcium 7.7 mg/dL (8.4-10.2); Carbon Dioxide 28 mmol/L (22-32); Chloride 97 mmol/L (98-107); Estimated Glomerular Filt Rate > 60.0 mL/min (>60); Globulin 2.4 g/dL (1.7-4.1); Glucose 99 mg/dL (80-110); HEMOLYSIS < 15 (0-50); Potassium 4.1 mmol/L (3.4-5.1); Sodium 131 mmol/L (137-145); Total Protein 4.6 g/dL (6.3-8.2)
[2018-08-02] MEDS: ALBUTEROL 2.5 MG/3 ML NEB (ADULT) INH (08:16)
--- NOTE | 2018-08-02 09:02 | PM.PN.1 ---
Subjective Date Patient Seen: 08/02/18 Time Patient Seen: 09:02 Interval history: Seen with brother and sister today, patient is rather somnolent so offers very little. Sister brings me up-to-date apparently patient was much more awake alert and interactive yesterday then he has been in at least days, seem to be in good spirits. Last night a bit of a challenge with a leaking chest tube some additional positioning issues and at least on 1 occasion had rather significant episode of pain that was described as different than it had before but still in the chest. Still complains some of hallucinations and has had a hiccup upper 2 as well. Exam Vital Signs (past 8 hours): - 08/02/18 04:46 08/02/18 08:16 Pulse Rate 89 83 Respiratory Rate 20 16 Blood Pressure 99/53 L Pulse Oximetry 94 94 Fraction of Inspired Oxygen 94 SaO2/FiO2 Ratio 4750 Oxygen Delivery Method Nasal Cannula Oxygen Flow Rate 8 Narrative Exam Narrative: Lying quietly in bed minimally responsive a few difficult to understand comments. HEENT seems unremarkable neck is benign chest shows diffuse rhonchi, heart regular without murmur abdomen soft nontender nondistended normoactive bowel tones extremities neurologic seen unremarkable. Objective Labs Result Diagrams: 08/02/18 05:48 08/02/18 05:48 Labs: Laboratory Results - last 24 hr 08/02/18 08/02/18 05:48 05:48 WBC 9.8 RBC 2.97 L Hgb 9.4 L Hct 27.8 L MCV 93.6 MCH 31.5 MCHC 33.6 RDW 12.8 Plt Count 317 Neut % (Auto) 74.5 Lymph % (Auto) 8.8 L [place] % (Auto) 14.7 H Eos % (Auto) 1.9 L Baso % (Auto) 0.1 Neut # (Auto) 7300 H Lymph # (Auto) 900 L [place] # (Auto) 1400 H Eos # (Auto) 200 Baso # (Auto) 0 Sodium 131 L Potassium 4.1 Chloride 97 L Carbon Dioxide 28 BUN 15 Creatinine 0.90 Estimated GFR > 60.0 BUN/Creatinine Ratio 16.7 Glucose 99 Calcium 7.7 L Total Bilirubin 0.1 L AST 49 ALT 37 Alkaline Phosphatase 54 Total Protein 4.6 L Albumin 2.2 L Globulin 2.4 Albumin/Globulin Ratio 0.9 L Assessment & Plan (1) Mass of upper lobe of right lung: Problem details: Still pending biopsy, anticipating a initial read hopefully within the next day or so may not have definitive were final pathology for sometime after. No treatment until that is available. Current visit: Yes Status: Acute (2) Acute respiratory failure: Problem details: O2 demand again is up see above. With treatment for pneumonia and increase in morphine continuous yesterday he seems to be breathing more comfortably but his O2 demand remains moderately elevated although perhaps a bit better than yesterday. Qualifiers: Respiratory failure complication: Current visit: Yes Status: Acute (3) Pleural effusion on right: Problem details: Continues to have some fluid outflow although that does seem to be slowing some should be helping with above item. Continue chest tube Current visit: Yes Status: Acute (4) Chest pain: Problem details: All related to above issues has been better with continuous morphine, also gabapentin I believe is helping, doubt the baclofen is helping much with that. Mostly well controlled but with any movement there is considerable increased. Current visit: Yes Status: Acute (5) Hiccups: Problem details: Likely related to diaphragmatic irritation from the effusion intermittent but somewhat bothersome especially as it seems to trigger pain. Baclofen was started for that but due to next item I have stopped that to see if that makes any difference. Still having the hiccups regardless. Current visit: Yes Status: Acute (6) Hallucinosis: Problem details: Still complaining some of this a little concerned that something like baclofen could contribute to that so have stopped that to see if it improves. Current visit: Yes Status: Acute (7) Anemia: Problem details: This is been developing over the last several days, likely due to lung issues, may be a chronic component as well. Current visit: Yes Status: Acute (8) Protein deficiency: Problem details: Noted on labs today he has been eating but not a lot and with the overall disease process this may begin to be a significant issue. Current visit: Yes Status: Acute Plan: Assessment/Plan Narrative: Will stop the baclofen continue to follow labs, continue other until we have more definitive idea where to go next. Reviewed with patient and family they are all in agreement. Quality VTE Deep Vein Thrombosis/Pulmonary Embolism Present on Admission: No
[2018-08-02] MEDS: CEFTRIAXONE 1 GM/50 ML FROZ.PIGGY IV ×2 (09:33→20:24)
[2018-08-02] MEDS: GABAPENTIN 300 MG CAPSULE PO ×2 (09:33→21:45)
[2018-08-02] MEDS: MULTIVIT,CALC,MINS/IRON/FOLIC 1 TABLET 1 TAB PO (09:33)
[2018-08-02] MEDS: DEXTROSE 5%-0.45% NS 1,000 ML 80 ML IV ×2 (09:50→23:54)
--- NOTE | 2018-08-02 10:27 | PT.IPTN ---
Current Diagnoses Anemia, unspecified (07/22/18) Unspecified protein-calorie malnutrition (07/22/18) Nicotine dependence, unspecified, in remission (07/22/18) Other psychotic disorder not due to a substance or known physiological condition (07/22/18) Pneumonia, unspecified organism (07/22/18) Pleural effusion, not elsewhere classified (07/22/18) Acute respiratory failure, unspecified whether with hypoxia or hypercapnia (07/22/18) Respiratory failure, unspecified, unspecified whether with hypoxia or hypercapnia (07/22/18) Hiccough (07/22/18) Chest pain, unspecified (07/22/18) Localized swelling, mass and lump, trunk (07/22/18) Other nonspecific abnormal finding of lung field (07/22/18) Surgery Performed Operation Date: 07/26/18 13:45 Actual Procedures p Bronchoscopy(Not Applicable) - Dk Hubbard MD s Chest Tube Placement(Right) - Dk Hubbard MD Operation Date: 07/30/18 14:00 Actual Procedures p Thoracoscopy - Dk Hubbard MD Physical Therapy Treatment Note M2 PT-IP Current Condition Start: 07/31/18 12:54 Freq: NEEDED Status: Active Protocol: Document 07/31/18 16:08 AB (Rec: 07/31/18 17:23 AB [id number]) Physical Therapy Current Condition Current Condition Evaluation Date 07/31/18 Treatment Diagnosis R upper lobe lung mass; generalized weakness Onset Date 07/22/18 Precautions Other Precautions chest tube; O2 sat, O2 at 2L/ min M3 PT-IP Subjective Start: 07/31/18 12:54 Freq: NEEDED Status: Active Protocol: Document 08/02/18 10:25 GGD (Rec: 08/02/18 10:25 GGD [id number]) Subjective Physical Therapy Visit Type Notes Hold per RN, due to pt having increase in pain. Will see in pm. Other Recommendations and Next Treatment transfers, ambulation if Focus appropriate Recommendations To Nursing Amount of Assist Needed 2 Person Assist Discharge Recommendations PT Discharge Recommendations SNF Rehab Equipment Needed for Home Before FWW Discharge
--- NOTE | 2018-08-02 10:48 | PC.NURSE ---
Addendum entered by Rosalinda Goode R.N. 08/02/18 11:32: MED - spoke to re baclofen req, he plan to dc this med to avoid incr confusion and halluc, family aware. 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
--- NOTE | 2018-08-02 15:50 | CM.DPNOTE ---
DCP Cont: Per MD, still waiting pathology reports of pt's biopsy on 07/31/18 before a tx plan can be determined and d/c planning needs identified. TRANG met with pt's brother, now his DPOA, and brother provided Medical Records with a copy of signed/notarized DPOA pwk along with Living Will copy and also was able to get Portal Access to pt's medical information through [facility] and SW provided brother with requested information regarding resources on the chance that pt does not improve and steps to be taken if pt passes away. TRANG also provided him with information regarding [employer] and brother is aware of the oncall [employer] as he is a friend of the pt's and he will reach out to him for additional supportive services. More family plan to be bedside this and on Sunday. Plan: TRANG to continue to follow closely for pathology results towards determine d/c planning needs based on treatment options and needs. INGE Gonsalez
--- NOTE | 2018-08-02 16:46 | PT.IPTN ---
Current Diagnoses Anemia, unspecified (07/22/18) Unspecified protein-calorie malnutrition (07/22/18) Nicotine dependence, unspecified, in remission (07/22/18) Other psychotic disorder not due to a substance or known physiological condition (07/22/18) Pneumonia, unspecified organism (07/22/18) Pleural effusion, not elsewhere classified (07/22/18) Acute respiratory failure, unspecified whether with hypoxia or hypercapnia (07/22/18) Respiratory failure, unspecified, unspecified whether with hypoxia or hypercapnia (07/22/18) Hiccough (07/22/18) Chest pain, unspecified (07/22/18) Localized swelling, mass and lump, trunk (07/22/18) Other nonspecific abnormal finding of lung field (07/22/18) Surgery Performed Operation Date: 07/26/18 13:45 Actual Procedures p Bronchoscopy(Not Applicable) - Dk Hubbard MD s Chest Tube Placement(Right) - Dk Hubbard MD Operation Date: 07/30/18 14:00 Actual Procedures p Thoracoscopy - Dk Hubbard MD Physical Therapy Treatment Note M2 PT-IP Current Condition Start: 07/31/18 12:54 Freq: NEEDED Status: Active Protocol: Document 07/31/18 16:08 AB (Rec: 07/31/18 17:23 AB [id number]) Physical Therapy Current Condition Current Condition Evaluation Date 07/31/18 Treatment Diagnosis R upper lobe lung mass; generalized weakness Onset Date 07/22/18 Precautions Other Precautions chest tube; O2 sat, O2 at 2L/ min M3 PT-IP Subjective Start: 07/31/18 12:54 Freq: NEEDED Status: Active Protocol: Document 08/02/18 16:40 GGD (Rec: 08/02/18 16:45 GGD [id number]) Subjective Physical Therapy Visit Type Type Treatment Note Visit Start Time 16:10 Visit Stop Time 16:40 Total Visit Minutes 30 Physical Therapy Visit Comments Patient Comments Pt willing to work with therapy. M4 PT-IP Mobility and Gait Start: 07/31/18 12:54 Freq: NEEDED Status: Active Protocol: Document 08/02/18 16:40 GGD (Rec: 08/02/18 16:45 GGD [id number]) PT-Bed Mobility Assessment Supine to Sit Supine to Sit Contact Guard Assistance Head of Bed Elevated Sit to Supine Sit to Supine Contact Guard Assistance Head of Bed Elevated Scooting Scooting to Edge of Bed Standby Assistance PT-Transfer Assessment Sit to and From Stand Sit to and from Stand Contact Guard Assistance 1 Person Assistance Use of Upper Extremities Equipment Transfer Assistive Device Gait Belt Front Wheeled Walker Transfers Transfer Destination Bed Transfer Ability Level of Assist Minimal Assistance 1 Person Assistance Use of Upper Extremities Comments Mobility Comments O2 at rest 97% on 8 L. with ativity 94% on 8L. Gait Assessment Gait Gait Assistance Required: Contact Guard Assist Distance (Feet) 15 Assistive Devices Assistive Device Gait Belt Front Wheeled Walker Gait Deviations General Gait Pattern Decreased Stride Length Decreased Feet Clearance Flexed Trunk Factors Limiting Gait Function Factors Limiting Gait Function Decreased Activity Tolerance Pain Poor Balance Poor Safety Awareness Comments Gait Comments Pt ambulated forwards and backwards x3 and then side step to head of bed. M5 PT-IP Objective Assessments Start: 07/31/18 12:54 Freq: NEEDED Status: Active Protocol: Document 07/31/18 16:08 AB (Rec: 07/31/18 17:23 AB [id number]) Orientation Orientation/Cognition Level of Alertness Confusional State Orientation Name Place Safety Awareness Decreased Safety Awareness Gross Range of Motion Lower Extremity ROM Assessment Within Functional Limits Strength Lower Extremity Strength Assessment Within Functional Limits Muscle Tone Muscle Tone WNL Yes M6 PT-IP Treatment Start: 07/31/18 12:54 Freq: NEEDED Status: Active Protocol: Document 08/02/18 16:40 GGD (Rec: 08/02/18 16:45 GGD [id number]) Physical Therapy Treatment Other Treatments Other Treatment Performed standing exercise: heel raises , marches, and mini squats in FWW. M7 PT-IP Assessment and Plan Start: 07/31/18 12:54 Freq: NEEDED Status: Active Protocol: Document 08/02/18 16:40 GGD (Rec: 08/02/18 16:45 GGD [id number]) PT Summary Assessment and Plan Summary Assessment Summary Pt improving with mobilty. He needed less assist with bed mobility and sit to stand. Pt able to ambulate short distance with FWW without LOB or decrease in O2 sats. He needed single step cues for mobility. Frequency of Treatment Frequency Of Treatment Once a Day Treatment Plan Physical Therapy Treatment Plan Bed Mobility Training Transfer Training Gait Training Therapeutic Exercise Balance Retraining Discharge Planning Neuromuscular Re-ed Coordination Retraining Manual Therapy Other Recommendations and Next Treatment transfers, ambulation if Focus appropriate Recommendations To Nursing Amount of Assist Needed 2 Person Assist Discharge Recommendations PT Discharge Recommendations Home with / Assist SNF Rehab
--- NOTE | 2018-08-02 17:25 | P.PN_ITS ---
Subjective Date Patient Seen: 08/02/18 Time Patient Seen: 16:00 Interval history: Patient more alert today. Feeling much better according to him and to his sister who is with him. Was able to eat some food today. Exam Vital Signs (past 8 hours): - 08/02/18 11:13 08/02/18 16:05 Temperature 98.2 F 98.4 F Pulse Rate 83 93 H Respiratory Rate 16 20 Blood Pressure 95/53 L 85/51 L Pulse Oximetry 98 96 Fraction of Inspired Oxygen 94 SaO2/FiO2 Ratio 4750 Oxygen Delivery Method Nasal Cannula Oxygen Flow Rate 7 Narrative Exam Narrative: Patient is wheezing with end expiratory wheezing. Air movement on right is decreased compared to left. Objective Labs Result Diagrams: 08/02/18 05:48 08/02/18 05:48 Labs: Laboratory Results - last 24 hr 08/02/18 08/02/18 05:48 05:48 WBC 9.8 RBC 2.97 L Hgb 9.4 L Hct 27.8 L MCV 93.6 MCH 31.5 MCHC 33.6 RDW 12.8 Plt Count 317 Neut % (Auto) 74.5 Lymph % (Auto) 8.8 L [place] % (Auto) 14.7 H Eos % (Auto) 1.9 L Baso % (Auto) 0.1 Neut # (Auto) 7300 H Lymph # (Auto) 900 L [place] # (Auto) 1400 H Eos # (Auto) 200 Baso # (Auto) 0 Sodium 131 L Potassium 4.1 Chloride 97 L Carbon Dioxide 28 BUN 15 Creatinine 0.90 Estimated GFR > 60.0 BUN/Creatinine Ratio 16.7 Glucose 99 Calcium 7.7 L Total Bilirubin 0.1 L AST 49 ALT 37 Alkaline Phosphatase 54 Total Protein 4.6 L Albumin 2.2 L Globulin 2.4 Albumin/Globulin Ratio 0.9 L Assessment & Plan Post-op Postoperative Procedures Operation Date: 07/26/18 13:45 Actual Procedures Side Surgeon p Bronchoscopy Not Applicable Dk Hubbard MD s Chest Tube Placement Right Dk Hubbard MD Operation Date: 07/30/18 14:00 Actual Procedures Side Surgeon p Thoracoscopy Dk Hubbard MD Postoperative status narrative: I think he is doing a little better. I think if we could get him to eat a little more and get his nutrition improved he would probably feel a lot better. Quality VTE Deep Vein Thrombosis/Pulmonary Embolism Present on Admission: No
[2018-08-03] VITALS (12 sets, daily range): BP systolic 88–132; BP diastolic 43–65; PULSE 78–96; RESP 14–23; TEMP 36.4–37.1; O2SAT 91–99
[2018-08-03] MEDS: MORPHINE PCA 30 MG/30 ML PCA.VIAL IV ×3 (05:36→22:54)
[2018-08-03] MEDS: ALBUTEROL 2.5 MG/3 ML NEB (ADULT) INH ×3 (06:06→16:49)
[2018-08-03 06:32] LABS: Add Manual Diff / Slide Review NO; Basophils Absolute Auto 100 /uL (0-100); Basophils Percent Auto 0.7 % (0-2); Eosinophils Absolute Auto 400 /uL (0-450); Eosinophils Percent Auto 3.4 % (2-4); Hematocrit 29.1 % (41-53); Hemoglobin 9.6 g/dL (13.5-17.5); Lymphocytes Absolute Auto 1700 /uL (1100-4500); Mean Corpuscular HGB Conc 33.1 % (30-36); Mean Corpuscular Hemoglobin 31.2 PG (26-34); Mean Corpuscular Volume 94.1 fL (80-100); Monocytes Absolute Auto 1600 /uL (0-900); Neutrophils Absolute Auto 7400 /uL (1500-7000); Neutrophils Percent Auto 66.9 % (50-75); Platelet Count 344 X10^3/uL (150-400); Red Blood Cell Count 3.09 X10^6/uL (4.5-5.9); Red Cell Distribution Width 12.8 % (11.6-14.8); White Blood Cell Count 11.1 X10^3/uL (4.5-11.0)
--- NOTE | 2018-08-03 06:41 | PC.NURSE ---
Pt A and O but confused to situation am I in Hospice? and emotional this shift. Sister mentioned that the family would like patient to be premedicated with Ativan when patient's receives status of biopsy. 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
[2018-08-03 07:05] LABS: BUN Creatinine Ratio 16.3 (6-22); Blood Urea Nitrogen 13 mg/dL (9-20); Calcium 7.9 mg/dL (8.4-10.2); Carbon Dioxide 29 mmol/L (22-32); Chloride 95 mmol/L (98-107); Estimated Glomerular Filt Rate > 60.0 mL/min (>60); Glucose 93 mg/dL (80-110); HEMOLYSIS < 15 (0-50); Potassium 4.1 mmol/L (3.4-5.1); Sodium 131 mmol/L (137-145)
[2018-08-03] MEDS: CEFTRIAXONE 1 GM/50 ML FROZ.PIGGY IV ×2 (09:18→20:42)
[2018-08-03] MEDS: MULTIVIT,CALC,MINS/IRON/FOLIC 1 TABLET 1 TAB PO (09:18)
[2018-08-03] MEDS: GABAPENTIN 300 MG CAPSULE PO ×2 (09:18→20:43)
--- NOTE | 2018-08-03 09:46 | P.PN_ITS ---
Subjective Date Patient Seen: 08/03/18 Time Patient Seen: 09:38 Interval history: More awake and alert today. Family is not present. Apparently the summer all have returned to their homes and in the distance. Although it sounds like someone else's coming and although he is a little confused about that but maybe a couple of daughters perhaps. He is seems to be having some impacts of medications seeming a little rummy, but seems in good spirits and denies any particular concerns. Review status no particular changes. Exam Vital Signs (past 8 hours): - 08/03/18 05:55 08/03/18 06:06 08/03/18 07:45 Temperature 97.6 F 98.5 F Pulse Rate 86 78 86 Respiratory Rate 23 18 18 Blood Pressure 132/58 L 91/57 L Pulse Oximetry 99 96 97 Fraction of Inspired Oxygen 94 SaO2/FiO2 Ratio 4750 Oxygen Delivery Method High Flow Nasal Cannula Oxygen Flow Rate 8 Narrative Exam Narrative: Sitting up in bed awake and alert, no evident distress. HEENT unremarkable neck benign chest is fairly clear in the left somewhat rhonchorous on the right but there is air movement there heart regular without murmur abdomen soft nontender nondistended normoactive bowel tones extremities benign neurologic with benign Objective Labs Result Diagrams: 08/03/18 05:55 08/03/18 05:55 Labs: Laboratory Results - last 24 hr 08/03/18 08/03/18 05:55 05:55 WBC 11.1 H RBC 3.09 L Hgb 9.6 L Hct 29.1 L MCV 94.1 MCH 31.2 MCHC 33.1 RDW 12.8 Plt Count 344 Neut % (Auto) 66.9 Lymph % (Auto) 15.0 L [place] % (Auto) 14.0 Eos % (Auto) 3.4 Baso % (Auto) 0.7 Neut # (Auto) 7400 H Lymph # (Auto) 1700 [place] # (Auto) 1600 H Eos # (Auto) 400 Baso # (Auto) 100 Sodium 131 L Potassium 4.1 Chloride 95 L Carbon Dioxide 29 BUN 13 Creatinine 0.80 Estimated GFR > 60.0 BUN/Creatinine Ratio 16.3 Glucose 93 Calcium 7.9 L Assessment & Plan (1) Mass of upper lobe of right lung: Problem details: No report yet on pathology suspect nothing until this Sunday. Current visit: Yes Status: Acute (2) Pleural effusion on right: Problem details: The outflow from the tube does seem to be diminishing somewhat exam seems to be improving somewhat overall respiratory status also improved. Current visit: Yes Status: Acute (3) Acute respiratory failure: Problem details: Still requiring O2 supplement but comfort and breathing seems to be markedly improved. Qualifiers: Respiratory failure complication: Current visit: Yes Status: Acute (4) Pneumonia: Problem details: White count and O2 demand have improved somewhat antibiotics seem to be working continue that. Current visit: Yes Status: Acute (5) Chest pain: Problem details: Seems less of an issue is getting a steady supply of morphine which is certainly helping. Current visit: Yes Status: Acute (6) Hiccups: Problem details: He seemed to be less prominent, even without the baclofen Current visit: Yes Status: Acute (7) Hallucinosis: Problem details: Do not seem to be as much an issue today. Current visit: Yes Status: Acute (8) Anemia: Problem details: Remaining pretty stable. No evidence of blood loss aside of the effusion Current visit: Yes Status: Acute (9) Protein deficiency: Problem details: Encouraged better nutrition today especially protein. He admits he does not have a lot of appetite but will try to overcome that. Current visit: Yes Status: Acute Plan: Assessment/Plan Narrative: Continue to follow labs, that seems that he has had a referral already for PT will ask that that continues. No other changes. Quality VTE Deep Vein Thrombosis/Pulmonary Embolism Present on Admission: No
--- NOTE | 2018-08-03 12:10 | PT.IPTN ---
Current Diagnoses Anemia, unspecified (07/22/18) Unspecified protein-calorie malnutrition (07/22/18) Nicotine dependence, unspecified, in remission (07/22/18) Other psychotic disorder not due to a substance or known physiological condition (07/22/18) Pneumonia, unspecified organism (07/22/18) Pleural effusion, not elsewhere classified (07/22/18) Acute respiratory failure, unspecified whether with hypoxia or hypercapnia (07/22/18) Respiratory failure, unspecified, unspecified whether with hypoxia or hypercapnia (07/22/18) Hiccough (07/22/18) Chest pain, unspecified (07/22/18) Localized swelling, mass and lump, trunk (07/22/18) Other nonspecific abnormal finding of lung field (07/22/18) Surgery Performed Operation Date: 07/26/18 13:45 Actual Procedures p Bronchoscopy(Not Applicable) - Dk Hubbard MD s Chest Tube Placement(Right) - Dk Hubbard MD Operation Date: 07/30/18 14:00 Actual Procedures p Thoracoscopy - Dk Hubbard MD Physical Therapy Treatment Note M2 PT-IP Current Condition Start: 07/31/18 12:54 Freq: NEEDED Status: Active Protocol: Document 07/31/18 16:08 AB (Rec: 07/31/18 17:23 AB [id number]) Physical Therapy Current Condition Current Condition Evaluation Date 07/31/18 Treatment Diagnosis R upper lobe lung mass; generalized weakness Onset Date 07/22/18 Precautions Other Precautions chest tube; O2 sat, O2 at 2L/ min M3 PT-IP Subjective Start: 07/31/18 12:54 Freq: NEEDED Status: Active Protocol: Document 08/03/18 12:10 GGD (Rec: 08/03/18 12:42 GGD [id number]) Subjective Physical Therapy Visit Type Type Treatment Note Visit Start Time 11:30 Visit Stop Time 12:10 Total Visit Minutes 40 Number of HOTEL SERVICE SUPERVISOR Visits 2 Physical Therapy Visit Comments Patient Comments Pt willing to work with therapy. M4 PT-IP Mobility and Gait Start: 07/31/18 12:54 Freq: NEEDED Status: Active Protocol: Document 08/03/18 12:10 GGD (Rec: 08/03/18 12:42 GGD [id number]) PT-Bed Mobility Assessment Supine to Sit Supine to Sit Contact Guard Assistance Head of Bed Elevated Scooting Scooting to Edge of Bed Standby Assistance PT-Transfer Assessment Sit to and From Stand Sit to and from Stand Contact Guard Assistance 1 Person Assistance Use of Upper Extremities Equipment Transfer Assistive Device Gait Belt Front Wheeled Walker Transfers Transfer Destination Chair Transfer Ability Level of Assist Contact Guard Assistance 1 Person Assistance Use of Upper Extremities Comments Mobility Comments 02 at rest 96% on 1 L. with activity 88-93% on 2L Gait Assessment Gait Gait Assistance Required: Contact Guard Assist Distance (Feet) 35 Assistive Devices Assistive Device Gait Belt Front Wheeled Walker Gait Deviations General Gait Pattern Decreased Stride Length Decreased Feet Clearance Flexed Trunk Factors Limiting Gait Function Factors Limiting Gait Function Decreased Activity Tolerance Decreased Strength Difficulty Following Directions Pain Poor Balance Poor Safety Awareness Comments Gait Comments Pt ambulated forwards and backwards x 4 , After a seated rest break ambulated 15 feet. M5 PT-IP Objective Assessments Start: 07/31/18 12:54 Freq: NEEDED Status: Active Protocol: Document 07/31/18 16:08 AB (Rec: 07/31/18 17:23 AB [id number]) Orientation Orientation/Cognition Level of Alertness Confusional State Orientation Name Place Safety Awareness Decreased Safety Awareness Gross Range of Motion Lower Extremity ROM Assessment Within Functional Limits Strength Lower Extremity Strength Assessment Within Functional Limits Muscle Tone Muscle Tone WNL Yes M6 PT-IP Treatment Start: 07/31/18 12:54 Freq: NEEDED Status: Active Protocol: Document 08/03/18 12:10 GGD (Rec: 08/03/18 12:42 GGD [id number]) Physical Therapy Treatment Exercises Exercises Seated Knee Flexion/Extension Other Treatments Other Treatment Performed standing exercise: heel raises , marches, and mini squats in FWW. M7 PT-IP Assessment and Plan Start: 07/31/18 12:54 Freq: NEEDED Status: Active Protocol: Document 08/03/18 12:10 GGD (Rec: 08/03/18 12:42 GGD [id number]) PT Summary Assessment and Plan Summary Assessment Summary Pt improving with mobility. He is slow moving. He had decrease step length and need cues for gait. He does have poor safety awareness. Treatment Plan Physical Therapy Treatment Plan Bed Mobility Training Transfer Training Gait Training Therapeutic Exercise Balance Retraining Discharge Planning Neuromuscular Re-ed Coordination Retraining Manual Therapy Other Recommendations and Next Treatment family training. Focus Recommendations To Nursing Amount of Assist Needed 1 Person Assist Discharge Recommendations PT Discharge Recommendations Home with 24/7 Assist Equipment Needed for Home Before will need a FWW Discharge
--- NOTE | 2018-08-03 13:03 | PM.PN.1 ---
Subjective Date Patient Seen: 08/03/18 Time Patient Seen: 13:03 Interval history: Patient is sitting in a bedside chair eating some lunch. He is somnolent but conversing. Seems to be slightly disoriented. Nevertheless he does recall the events of his recent hospitalization and surgery. He actually summarize is his current hospital course and working diagnosis for me during my visit. He denies any significant pain. Feels that his shortness of breath somewhat improved. No nausea or vomiting. Exam Vital Signs (past 8 hours): - 08/03/18 05:55 08/03/18 06:06 08/03/18 07:45 Temperature 97.6 F 98.5 F Pulse Rate 86 78 86 Respiratory Rate 23 18 18 Blood Pressure 132/58 L 91/57 L Pulse Oximetry 99 96 97 08/03/18 09:30 08/03/18 09:45 08/03/18 11:08 Temperature 98.6 F Pulse Rate 83 Respiratory Rate 18 Blood Pressure 88/43 L Pulse Oximetry 96 93 96 08/03/18 11:10 08/03/18 11:37 Temperature Pulse Rate 88 Respiratory Rate 14 Blood Pressure Pulse Oximetry 96 93 Fraction of Inspired Oxygen 26 SaO2/FiO2 Ratio 4750 Oxygen Delivery Method Nasal Cannula Oxygen Flow Rate 1.5 Narrative Exam Narrative: He is in no acute distress. No fevers. No tachycardia. Currently on 2 L nasal cannula oxygen which is slowly being weaned. Blood pressure stable. Chest tube output is approximately 500 or 600 cc over the last 24 hr. Fluid is bloody but mostly serous. I do not appreciate an obvious air leak with cough, but his cough effort is somewhat diminished. Dressings are clean, dry, and intact Chest shows markedly diminished breath sounds throughout the entire right lung field. There is some air movement at the apex and laterally to some small extent. Left lung field is clear. Objective Labs Result Diagrams: 08/03/18 05:55 08/03/18 05:55 Labs: Laboratory Results - last 24 hr 08/03/18 08/03/18 05:55 05:55 WBC 11.1 H RBC 3.09 L Hgb 9.6 L Hct 29.1 L MCV 94.1 MCH 31.2 MCHC 33.1 RDW 12.8 Plt Count 344 Neut % (Auto) 66.9 Lymph % (Auto) 15.0 L [place] % (Auto) 14.0 Eos % (Auto) 3.4 Baso % (Auto) 0.7 Neut # (Auto) 7400 H Lymph # (Auto) 1700 [place] # (Auto) 1600 H Eos # (Auto) 400 Baso # (Auto) 100 Sodium 131 L Potassium 4.1 Chloride 95 L Carbon Dioxide 29 BUN 13 Creatinine 0.80 Estimated GFR > 60.0 BUN/Creatinine Ratio 16.3 Glucose 93 Calcium 7.9 L No new radiographic studies for review Pathology still pending Assessment & Plan Plan: Assessment/Plan Narrative: 63-year-old male status post right thoracoscopy and 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 He continues to have moderate output from the chest tube. This may be somewhat of a challenge to slowly work toward removing the chest tube since it is very likely that his effusion will reaccumulate once the tube is removed. Obviously this may exacerbate his respiratory symptoms and dyspnea. He clearly is contemplating the gravity of his diagnosis and discusses with me his impression of treatment options moving forward. I did agree with his assessment that chemotherapy would be essentially the only option at this stage, and the diagnosis for the specific tumor type would dictate the exact agents. He seems to fully understand the poor prognosis related to his diagnosis, and he spent some time discussing with me his outlook on and his final wishes. He informs me that he can essentially deal with anything at this point, and he is pleased with his progress at the moment regarding arrangement of his personal affairs. His main direction to me today regards air hunger at any point during his clinical course, especially at the time of his whenever that may come. Clearly reassured him that we have a multitude of modalities to alleviate any sensation of air hunger said he does not feel as he is gasping for breath. This seemed to alleviate 1 of his major concerns today. At the moment we will continue the chest tube given the moderate amount of output. Await pathology, which hopefully will be available at the beginning of next week. Very possible that he will require a PleurX catheter for palliation of the effusion at some point. Otherwise continue his current care. We will continue to follow him throughout this admission. Quality VTE Deep Vein Thrombosis/Pulmonary Embolism Present on Admission: No
--- NOTE | 2018-08-03 16:37 | PC.NURSE ---
Addendum entered by Isela Brunner R.N. 08/03/18 22:38: Relatively uneventful evening. IVF continues as per orders. Chest tube intact/patent. Using SANITATION ASSOCIATE for discomfort w/o incidnece. Call light w/in reach, bed alarm on for pt safety. . Continue w/plan of care. Original Note: Pt resting quietly at this time. SpO2 95% RA. on 2L O2 Chest tube intact/patent. IV if D51/2NS @ 80cc/hr infusing into GISELLA PICC w/o incidence. Family in room Call light w/in reach, bed alarm on for pt safety.
[2018-08-04] VITALS (12 sets, daily range): BP systolic 82–102; BP diastolic 44–58; PULSE 80–101; RESP 16–24; TEMP 36.7–36.9; O2SAT 89–97
--- NOTE | 2018-08-04 | DI.RAD.S_ITS ---
PROCEDURE: XR CHEST 1V INDICATIONS: follow effusion TECHNIQUE: One view of the chest was acquired. COMPARISON: [facility], CT, CT CHEST W CON, 07/28/2018, 11:39. [facility], CR, XR CHEST 1V, 07/30/2018, 18:31. [facility], CR, XR CHEST 1V, 08/01/2018, 9:04. FINDINGS: Surgical changes and devices: There is a right thoracostomy tube, unchanged in position. Lungs and pleura: There is moderate, loculated right pleural effusion, unchanged compared to the last exam. There is infiltrate and atelectasis in the right hemithorax, also unchanged. There is a small left pleural effusion, slightly increased. No pneumothorax. Mediastinum: Mediastinal contours appear normal. Heart size is normal. Bones and chest wall: No suspicious bony lesions. Overlying soft tissues appear unremarkable. IMPRESSION: 1. Stable moderate, loculated right pleural effusion with infiltrate and atelectasis. 2. Small left pleural effusion, which is slightly increased. Dictated by: Dayne Johnson M.D. on 08/04/2018 at 13:22 Approved by: Dayne Johnson M.D. on 08/04/2018 at 13:25
[2018-08-04] MEDS: DEXTROSE 5%-0.45% NS 1,000 ML 80 ML IV ×2 (02:27→16:01)
[2018-08-04] MEDS: LORazepam 2 MG/ML SYRINGE 1 MG IV (03:59)
[2018-08-04] MEDS: ALBUTEROL 2.5 MG/3 ML NEB (ADULT) INH ×4 (04:16→22:50)
[2018-08-04 05:42] LABS: Add Manual Diff / Slide Review NO; Basophils Absolute Auto 0 /uL (0-100); Basophils Percent Auto 0.3 % (0-2); Eosinophils Absolute Auto 300 /uL (0-450); Eosinophils Percent Auto 2.4 % (2-4); Hematocrit 28.3 % (41-53); Hemoglobin 9.7 g/dL (13.5-17.5); Lymphocytes Absolute Auto 1000 /uL (1100-4500); Lymphocytes Percent Auto 8.9 % (25-40); Mean Corpuscular HGB Conc 34.3 % (30-36); Mean Corpuscular Hemoglobin 31.9 PG (26-34); Mean Corpuscular Volume 93.1 fL (80-100); Monocytes Absolute Auto 1700 /uL (0-900); Monocytes Percent Auto 14.4 % (3-14); Neutrophils Absolute Auto 8700 /uL (1500-7000); Platelet Count 385 X10^3/uL (150-400); Red Blood Cell Count 3.04 X10^6/uL (4.5-5.9); White Blood Cell Count 11.7 X10^3/uL (4.5-11.0)
--- NOTE | 2018-08-04 05:42 | PC.NURSE ---
Pt drsg saturated again this shift, changed x 1. Pt c/o pain with CT and movement. Some confusion easily reorientated. Brother Vlad in room. Family has requested that when pt receives results from biopsy only MICKEY Chu be with patient in room.
[2018-08-04 06:02] LABS: Alanine Aminotransferase 39 IU/L (21-72); Albumin 2.4 g/dL (3.5-5.0); Albumin Globulin Ratio 0.9 (1.0-2.8); Alkaline Phosphatase 64 U/L (38-126); Aspartate Aminotransferase 72 IU/L (17-59); BUN Creatinine Ratio 16.3 (6-22); Bilirubin Total 0.5 mg/dL (0.2-1.3); Blood Urea Nitrogen 13 mg/dL (9-20); Calcium 8.1 mg/dL (8.4-10.2); Carbon Dioxide 29 mmol/L (22-32); Chloride 93 mmol/L (98-107); Estimated Glomerular Filt Rate > 60.0 mL/min (>60); Globulin 2.7 g/dL (1.7-4.1); Glucose 114 mg/dL (80-110); HEMOLYSIS 17 (0-50); Potassium 4.3 mmol/L (3.4-5.1); Sodium 128 mmol/L (137-145); Total Protein 5.1 g/dL (6.3-8.2)
[2018-08-04] MEDS: MORPHINE PCA 30 MG/30 ML PCA.VIAL IV ×3 (06:13→22:34)
[2018-08-04] MEDS: MULTIVIT,CALC,MINS/IRON/FOLIC 1 TABLET 1 TAB PO (09:12)
[2018-08-04] MEDS: CEFTRIAXONE 1 GM/50 ML FROZ.PIGGY IV ×2 (09:12→22:33)
[2018-08-04] MEDS: GABAPENTIN 300 MG CAPSULE PO ×2 (09:13→22:33)
--- NOTE | 2018-08-04 10:36 | PC.NURSE ---
Pt's dressing to chest tube is cdi, tube is at 20mm of suction. No air bubbles noted in lower left chamber. Pt has light red drainage in chest tube chamber. 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 Continuous of 0.5mg stopped on day shift. He is groggy but awakens easily. He does have some confusion. He ate half a bowl of cream of wheat and has been drinking his water. His brother is in the room with pt today.
--- NOTE | 2018-08-04 10:39 | P.PN_ITS ---
Subjective Date Patient Seen: 08/04/18 Time Patient Seen: 10:36 Interval history: Now with brother and 2 daughters. Found curled up at the foot of the bed he says mostly for pain issues. But the pain has not been that bad he thinks and breathing is pretty comfortable. Has been eating more after our discussion yesterday and eager to get up and start exercising although encouraged to wait for PT. Remaining patient as far as the pathology is concerned. Exam Vital Signs (past 8 hours): - 08/04/18 03:57 08/04/18 04:16 08/04/18 08:10 Temperature 98.5 F 98.4 F Pulse Rate 96 H 85 80 Respiratory Rate 17 22 18 Blood Pressure 102/55 L 82/49 L Pulse Oximetry 93 92 94 Fraction of Inspired Oxygen 26 SaO2/FiO2 Ratio 4750 Oxygen Delivery Method High Flow Nasal Cannula Oxygen Flow Rate 2 Narrative Exam Narrative: No apparent distress. A little confused and slow in response, probably more of a narcotic effect. HEENT unremarkable neck is benign chest shows some movement on right upper lobe quieter right lower pretty clear on left. Heart regular without murmur abdomen soft nontender nondistended normoactive bowel tones extremities benign neurologically nonfocal. Objective Labs Result Diagrams: 08/04/18 05:25 08/04/18 05:25 Labs: Laboratory Results - last 24 hr 08/04/18 08/04/18 05:25 05:25 WBC 11.7 H RBC 3.04 L Hgb 9.7 L Hct 28.3 L MCV 93.1 MCH 31.9 MCHC 34.3 RDW 13.0 Plt Count 385 Neut % (Auto) 74.0 Lymph % (Auto) 8.9 L [place] % (Auto) 14.4 H Eos % (Auto) 2.4 Baso % (Auto) 0.3 Neut # (Auto) 8700 H Lymph # (Auto) 1000 L [place] # (Auto) 1700 H Eos # (Auto) 300 Baso # (Auto) 0 Sodium 128 L Potassium 4.3 Chloride 93 L Carbon Dioxide 29 BUN 13 Creatinine 0.80 Estimated GFR > 60.0 BUN/Creatinine Ratio 16.3 Glucose 114 H Calcium 8.1 L Total Bilirubin 0.5 AST 72 H ALT 39 Alkaline Phosphatase 64 Total Protein 5.1 L Albumin 2.4 L Globulin 2.7 Albumin/Globulin Ratio 0.9 L Assessment & Plan (1) Mass of upper lobe of right lung: Problem details: No report yet on pathology suspect nothing until this Sunday. Current visit: Yes Status: Acute (2) Acute respiratory failure: Problem details: Oxygen demand is down breathing for more comfortably. Will check chest x-ray today. Qualifiers: Respiratory failure complication: Current visit: Yes Status: Acute (3) Pleural effusion on right: Problem details: Flow continues to diminish will check chest x-ray to see whether in the lung inflation is occurring. Current visit: Yes Status: Acute (4) Pneumonia: Problem details: Improving. Current visit: Yes Status: Acute (5) Chest pain: Problem details: Can be an issue with movement. Current visit: Yes Status: Acute (6) Anemia: Problem details: Remaining pretty stable. No evidence of blood loss aside of the effusion Current visit: Yes Status: Acute (7) Protein deficiency: Problem details: Has responded to our discussion yesterday about increased intake will continue to follow. Current visit: Yes Status: Acute (8) Hiccups: Problem details: Does not seem to be an issue at this time. Current visit: Yes Status: Acute (9) Hallucinosis: Problem details: Seems improved at least somewhat perhaps due to stopping the baclofen. Current visit: Yes Status: Acute (10) Hypotension: Problem details: Pressure is running low not sure if due to medications but likely due to imbalance of fluids. Will increase IV fluid rate. Current visit: Yes Status: Acute Plan: Assessment/Plan Narrative: Hoping that we will get a definitive pathology results tomorrow and then we can then proceed to treatment. Waiting game until then continue to follow labs changes as above. Quality VTE Deep Vein Thrombosis/Pulmonary Embolism Present on Admission: No
--- NOTE | 2018-08-04 11:50 | PT.IPTN ---
Current Diagnoses Anemia, unspecified (07/22/18) Unspecified protein-calorie malnutrition (07/22/18) Nicotine dependence, unspecified, in remission (07/22/18) Other psychotic disorder not due to a substance or known physiological condition (07/22/18) Hypotension, unspecified (07/22/18) Pneumonia, unspecified organism (07/22/18) Pleural effusion, not elsewhere classified (07/22/18) Acute respiratory failure, unspecified whether with hypoxia or hypercapnia (07/22/18) Respiratory failure, unspecified, unspecified whether with hypoxia or hypercapnia (07/22/18) Hiccough (07/22/18) Chest pain, unspecified (07/22/18) Localized swelling, mass and lump, trunk (07/22/18) Other nonspecific abnormal finding of lung field (07/22/18) Surgery Performed Operation Date: 07/26/18 13:45 Actual Procedures p Bronchoscopy(Not Applicable) - Dk Hubbard MD s Chest Tube Placement(Right) - Dk Hubbard MD Operation Date: 07/30/18 14:00 Actual Procedures p Thoracoscopy - Dk Hubbard MD Physical Therapy Treatment Note M2 PT-IP Current Condition Start: 07/31/18 12:54 Freq: NEEDED Status: Active Protocol: Document 07/31/18 16:08 AB (Rec: 07/31/18 17:23 AB [id number]) Physical Therapy Current Condition Current Condition Evaluation Date 07/31/18 Treatment Diagnosis R upper lobe lung mass; generalized weakness Onset Date 07/22/18 Precautions Other Precautions chest tube; O2 sat, O2 at 2L/ min M3 PT-IP Subjective Start: 07/31/18 12:54 Freq: NEEDED Status: Active Protocol: Document 08/04/18 11:50 RCC (Rec: 08/04/18 15:26 RCC [id number]) Subjective Physical Therapy Visit Type Type Patient Unavailable Notes pt receiving RT treatment, will attempt PT after lunch. Frequency of Treatment Frequency Of Treatment Twice a Day Treatment Plan Physical Therapy Treatment Plan Bed Mobility Training Transfer Training Gait Training Therapeutic Exercise Balance Retraining Discharge Planning Neuromuscular Re-ed Coordination Retraining Manual Therapy Other Recommendations and Next Treatment family training. Focus Recommendations To Nursing Amount of Assist Needed 1 Person Assist Discharge Recommendations PT Discharge Recommendations Home with 24/7 Assist Equipment Needed for Home Before will need a FWW Discharge
--- NOTE | 2018-08-04 11:55 | PM.PN.1 ---
Subjective Date Patient Seen: 08/04/18 Time Patient Seen: 11:55 Interval history: Patient remains confused and somnolent. However, he is arousable and able to tell me that he had somewhat of a difficult night in that he was quite anxious. He is also having some pain around the chest tube site, but this is currently controlled with his intravenous narcotic medications. States that he feels somewhat short of breath at times but no air hunger. Currently he states he is breathing comfortably on 2 L nasal cannula oxygen. He continues to remain optimistic about potential treatment. He is anxious to receive a definitive diagnosis based on the pathology and move forward with potential therapy. Exam Vital Signs (past 8 hours): - 08/04/18 03:57 08/04/18 04:16 08/04/18 08:10 Temperature 98.5 F 98.4 F Pulse Rate 96 H 85 80 Respiratory Rate 17 22 18 Blood Pressure 102/55 L 82/49 L Pulse Oximetry 93 92 94 08/04/18 11:11 Temperature Pulse Rate 93 H Respiratory Rate 20 Blood Pressure Pulse Oximetry 96 Fraction of Inspired Oxygen 28 SaO2/FiO2 Ratio 4750 Oxygen Delivery Method High Flow Nasal Cannula Oxygen Flow Rate 2 Narrative Exam Narrative: Patient is sitting upright in bed in no acute distress. Again, he is somnolent but arousable. His speech is somewhat rambling at times and he is clearly intermittently confused, but he is able to express his wishes and his current status clearly. His brother and his daughters are at the bedside for my entire visit. No fevers. No tachycardia. Blood pressure stable but occasionally low. He is making adequate urine output. Tolerating some nutrition although again his intake is relatively minimal overall. Nonetheless this is not unanticipated given his current status and diagnosis. Chest tube output was nearly 1 L yesterday of serosanguineous fluid. Chest shows coarse rhonchi throughout both lung ruiz. He has diffuse expiratory and inspiratory wheezes. Breath sounds in the right lung field are significantly diminished compared to the left however. I placed the chest tube to water seal during my visit and I appreciate no air leak although he does have somewhat of a poor cough effort currently. Objective Labs Result Diagrams: 08/04/18 05:25 08/04/18 05:25 Labs: Laboratory Results - last 24 hr 08/04/18 08/04/18 05:25 05:25 WBC 11.7 H RBC 3.04 L Hgb 9.7 L Hct 28.3 L MCV 93.1 MCH 31.9 MCHC 34.3 RDW 13.0 Plt Count 385 Neut % (Auto) 74.0 Lymph % (Auto) 8.9 L [place] % (Auto) 14.4 H Eos % (Auto) 2.4 Baso % (Auto) 0.3 Neut # (Auto) 8700 H Lymph # (Auto) 1000 L [place] # (Auto) 1700 H Eos # (Auto) 300 Baso # (Auto) 0 Sodium 128 L Potassium 4.3 Chloride 93 L Carbon Dioxide 29 BUN 13 Creatinine 0.80 Estimated GFR > 60.0 BUN/Creatinine Ratio 16.3 Glucose 114 H Calcium 8.1 L Total Bilirubin 0.5 AST 72 H ALT 39 Alkaline Phosphatase 64 Total Protein 5.1 L Albumin 2.4 L Globulin 2.7 Albumin/Globulin Ratio 0.9 L Chest x-ray done this morning before tube was placed to water-seal shows no significant difference from the 1 done 3 days ago. In fact, there may be a little less aeration in the right base near the costophrenic angle. The effusion otherwise remained stable with a chest tube in normal position. No pneumothorax. Assessment & Plan Plan: Assessment/Plan Narrative: 63-year-old male with advanced right chest malignancy and resulting malignant effusion. Final pathology is still pending. Hopefully this will be available tomorrow, and treatment recommendations can be obtained from the medical oncology service. I will repeat his chest x-ray tomorrow while the tube is to water seal. However, the drainage remains significant at nearly 1 L per day. I am uncertain how well he would tolerate removal of the chest tube at this point as I suspect he will rapidly reaccumulate his effusion and become significantly symptomatic once again similar to his presenting dyspnea. He and his family clearly wished to avoid that situation if possible. Unfortunately options are somewhat limited given the advanced nature of his malignant effusion and pleural tumor involvement. He may at some point require a PleurX catheter for palliative purposes even as he receives potential chemotherapy. I mention this briefly to his family today. In the interim we will continue the current care. All questions were answered to their satisfaction, and the patient voiced understanding. Orders were written. Quality VTE Deep Vein Thrombosis/Pulmonary Embolism Present on Admission: No
--- NOTE | 2018-08-04 13:00 | PT.IPTN ---
Current Diagnoses Anemia, unspecified (07/22/18) Unspecified protein-calorie malnutrition (07/22/18) Nicotine dependence, unspecified, in remission (07/22/18) Other psychotic disorder not due to a substance or known physiological condition (07/22/18) Hypotension, unspecified (07/22/18) Pneumonia, unspecified organism (07/22/18) Pleural effusion, not elsewhere classified (07/22/18) Acute respiratory failure, unspecified whether with hypoxia or hypercapnia (07/22/18) Respiratory failure, unspecified, unspecified whether with hypoxia or hypercapnia (07/22/18) Hiccough (07/22/18) Chest pain, unspecified (07/22/18) Localized swelling, mass and lump, trunk (07/22/18) Other nonspecific abnormal finding of lung field (07/22/18) Surgery Performed Operation Date: 07/26/18 13:45 Actual Procedures p Bronchoscopy(Not Applicable) - Dk Hubbard MD s Chest Tube Placement(Right) - Dk Hubbard MD Operation Date: 07/30/18 14:00 Actual Procedures p Thoracoscopy - Dk Hubbard MD Physical Therapy Treatment Note M2 PT-IP Current Condition Start: 07/31/18 12:54 Freq: NEEDED Status: Active Protocol: Document 07/31/18 16:08 AB (Rec: 07/31/18 17:23 AB [id number]) Physical Therapy Current Condition Current Condition Evaluation Date 07/31/18 Treatment Diagnosis R upper lobe lung mass; generalized weakness Onset Date 07/22/18 Precautions Other Precautions chest tube; O2 sat, O2 at 2L/ min M3 PT-IP Subjective Start: 07/31/18 12:54 Freq: NEEDED Status: Active Protocol: Document 08/04/18 13:56 RCC (Rec: 08/04/18 15:34 RCC [id number]) Subjective Physical Therapy Visit Type Type Treatment Note Visit Start Time 13:00 Visit Stop Time 13:56 Total Visit Minutes [address] Ordonez gave clearance to ambulate without suction attached to chest tube. Number of BOOKING AGENT Visits 0 Physical Therapy Visit Comments Patient Comments Pt wants to get out of bed and walk. M4 PT-IP Mobility and Gait Start: 07/31/18 12:54 Freq: NEEDED Status: Active Protocol: Document 08/04/18 13:56 RCC (Rec: 08/04/18 15:34 [facility] [id number]) PT-Bed Mobility Assessment Supine to Sit Supine to Sit Minimal Assistance Head of Bed Elevated Sit to Supine Sit to Supine Contact Guard Assistance Head of Bed Elevated Scooting Scooting to Edge of Bed Standby Assistance PT-Transfer Assessment Sit to and From Stand Sit to and from Stand Contact Guard Assistance 1 Person Assistance Use of Upper Extremities Equipment Transfer Assistive Device Gait Belt Front Wheeled Walker Transfers Transfer Destination Bed Transfer Ability Level of Assist Contact Guard Assistance 1 Person Assistance Use of Upper Extremities Gait Assessment Gait Gait Assistance Required: Contact Guard Assist Distance (Feet) 100 Assistive Devices Assistive Device Gait Belt Front Wheeled Walker Gait Deviations General Gait Pattern Decreased Stride Length Decreased Feet Clearance Factors Limiting Gait Function Factors Limiting Gait Function Decreased Activity Tolerance Decreased Strength Difficulty Following Directions Pain Poor Balance Poor Safety Awareness Comments Gait Comments O2 saturation 86-95% on 2-4 L O2 during mobility (increased to 3 then 4 L with mobility due to O2 saturation on 2-L dropping to 86%) M5 PT-IP Objective Assessments Start: 07/31/18 12:54 Freq: NEEDED Status: Active Protocol: Document 07/31/18 16:08 AB (Rec: 07/31/18 17:23 AB [id number]) Orientation Orientation/Cognition Level of Alertness Confusional State Orientation Name Place Safety Awareness Decreased Safety Awareness Gross Range of Motion Lower Extremity ROM Assessment Within Functional Limits Strength Lower Extremity Strength Assessment Within Functional Limits Muscle Tone Muscle Tone WNL Yes M6 PT-IP Treatment Start: 07/31/18 12:54 Freq: NEEDED Status: Active Protocol: Document 08/04/18 13:56 [facility] (Rec: 08/04/18 15:34 [facility] [id number]) Physical Therapy Treatment Other Treatments Other Treatment Performed standing exercises: mini- squats, marching throughout session M7 PT-IP Assessment and Plan Start: 07/31/18 12:54 Freq: NEEDED Status: Active Protocol: Document 08/04/18 13:56 [facility] (Rec: 08/04/18 15:34 [facility] [id number]) PT Summary Assessment and Plan Summary Assessment Summary Pt able to be taken off of suction of chest tube for mobility per Dr. Ordonez. Pt increased his gait distance, but does still require continuous cuing and reassurances during mobility. Pt is highly motivated to improve. He used his GEAR CUTTING MACHINE SET UP OPERATOR twice (before and after this session), with high reaction to pain when in bed. Pt's O2 saturation decreased to 85% on 2-L O2 during gait, increased to 4-L for activity and maintained at 93% or greater. Goals Bed Mobility Goal Standby Assistance Transfer Goal Standby Assistance Front Wheeled Walker Gait Goal Standby Assistance Front Wheel Walker Gait Distance 75 Other Goals up/down 1 steps using FWW CGA Days to Meet Goals 10 Frequency of Treatment Frequency Of Treatment Twice a Day Treatment Plan Other Recommendations and Next Treatment CG training, progress activity Focus tolerance, bed mobility and gait. Pt was cleared by Dr. Ordonez to disconnect suction during PT sessions Recommendations To Nursing Amount of Assist Needed 1 Person Assist Discharge Recommendations PT Discharge Recommendations Home with 29/01 Assist Equipment Needed for Home Before will need a FWW Discharge
--- NOTE | 2018-08-04 15:09 | PC.NURSE ---
Pts chest tube off of suction and pt is tolerating well. He walked with pt and walker and all went well.Pt is confused at times. He complained of pain to r.chest area and has to be reminded to push his director toxicology button. Family helps remind him. He is sleeping now and will have another CT tomorrow.
[2018-08-04] MEDS: MAGNESIUM HYDROXIDE 30 ML UDC PO (18:41)
[2018-08-04] MEDS: DOCUSATE 100 MG CAPSULE PO (22:33)
[2018-08-05] VITALS (7 sets, daily range): BP systolic 96–111; BP diastolic 51–86; PULSE 84–101; RESP 20; TEMP 36.6–37.3; O2SAT 93–96
--- NOTE | 2018-08-05 | DI.RAD.S_ITS ---
PROCEDURE: XR CHEST 1V INDICATIONS: effusion/ chest tube to water seal TECHNIQUE: One view of the chest was acquired. COMPARISON: [facility], CR, XR CHEST 1V, 08/01/2018, 9:04. [facility], CR, XR CHEST 1V, 07/31/2018, 11:36. [facility], CR, XR CHEST 1V, 08/04/2018, 11:20. FINDINGS: Surgical changes and devices: Stable positioning of right pleural drain. Lungs and pleura: Moderate loculated right pleural effusion appears similar to prior examination. Small left pleural effusion unchanged. Persistent air space opacity involving the right hemithorax not significantly changed. Minimal left basilar airspace opacity. No pneumothorax. Mediastinum: Mediastinal contours appear normal. Heart size is normal. Bones and chest wall: No suspicious bony lesions. Overlying soft tissues appear unremarkable. IMPRESSION: 1. Stable positioning of right pleural drain. 2. Loculated right pleural effusion and small left pleural effusion unchanged. 3. Infiltrate/atelectasis throughout the right hemithorax. 4. Minimal left basilar compressive atelectasis versus pneumonia appears unchanged. Dictated by: Mata Watts [facility] Interpreted: Dino Samayoa MD on 08/05/2018 at 8:10 Approved by: Dino Samayoa M.D. on 08/05/2018 at 10:31
[2018-08-05] MEDS: MAGNESIUM HYDROXIDE 30 ML UDC PO (02:28)
--- NOTE | 2018-08-05 04:20 | PC.NURSE ---
Pt more focused and clear this shift than previous. He understands his situation and is showing good insight. Continues to have CT site pain 11/15 using approx 14 mg MS BROKERAGE MANAGER so far this shift.
[2018-08-05] MEDS: DEXTROSE 5%-0.45% NS 1,000 ML 80 ML IV ×2 (04:41→19:38)
[2018-08-05] MEDS: ALBUTEROL 2.5 MG/3 ML NEB (ADULT) INH ×3 (05:02→18:26)
[2018-08-05 05:42] LABS: Add Manual Diff / Slide Review NO; Basophils Absolute Auto 100 /uL (0-100); Basophils Percent Auto 0.6 % (0-2); Eosinophils Absolute Auto 300 /uL (0-450); Eosinophils Percent Auto 2.5 % (2-4); Hematocrit 25.8 % (41-53); Hemoglobin 8.9 g/dL (13.5-17.5); Lymphocytes Absolute Auto 1400 /uL (1100-4500); Lymphocytes Percent Auto 10.3 % (25-40); Mean Corpuscular HGB Conc 34.6 % (30-36); Mean Corpuscular Hemoglobin 31.7 PG (26-34); Mean Corpuscular Volume 91.8 fL (80-100); Monocytes Absolute Auto 2000 /uL (0-900); Monocytes Percent Auto 15.2 % (3-14); Neutrophils Absolute Auto 9400 /uL (1500-7000); Neutrophils Percent Auto 71.4 % (50-75); Platelet Count 446 X10^3/uL (150-400); Red Blood Cell Count 2.81 X10^6/uL (4.5-5.9); Red Cell Distribution Width 12.9 % (11.6-14.8); White Blood Cell Count 13.1 X10^3/uL (4.5-11.0)
[2018-08-05] MEDS: MORPHINE PCA 30 MG/30 ML PCA.VIAL IV ×4 (05:44→22:20)
[2018-08-05 05:55] LABS: Alanine Aminotransferase 43 IU/L (21-72); Albumin 2.4 g/dL (3.5-5.0); Albumin Globulin Ratio 0.9 (1.0-2.8); Alkaline Phosphatase 63 U/L (38-126); Aspartate Aminotransferase 55 IU/L (17-59); BUN Creatinine Ratio 12.2 (6-22); Bilirubin Total 0.3 mg/dL (0.2-1.3); Blood Urea Nitrogen 11 mg/dL (9-20); Calcium 8.1 mg/dL (8.4-10.2); Carbon Dioxide 32 mmol/L (22-32); Chloride 92 mmol/L (98-107); Estimated Glomerular Filt Rate > 60.0 mL/min (>60); Globulin 2.8 g/dL (1.7-4.1); Glucose 110 mg/dL (80-110); HEMOLYSIS < 15 (0-50); Potassium 4.6 mmol/L (3.4-5.1); Sodium 129 mmol/L (137-145); Total Protein 5.2 g/dL (6.3-8.2)
--- NOTE | 2018-08-05 08:39 | P.PN_ITS ---
Subjective Date Patient Seen: 08/05/18 Time Patient Seen: 08:33 Interval history: Awake and alert today, no changes in complaints, still fair pain with chest tube. Asked about the other various labs we do daily. Exam Vital Signs (past 8 hours): - 08/05/18 05:02 08/05/18 05:30 Temperature 98.2 F Pulse Rate 84 92 H Respiratory Rate 20 20 Blood Pressure 103/54 L Pulse Oximetry 93 93 Fraction of Inspired Oxygen 28 SaO2/FiO2 Ratio 4750 Oxygen Delivery Method High Flow Nasal Cannula Oxygen Flow Rate 2 Narrative Exam Narrative: Sitting up in bed no apparent distress, HEENT unremarkable neck benign chest shows decreased breath sounds on the right open on the left heart regular without murmur abdomen soft nontender normoactive bowel tones extremities benign neurologically nonfocal.Sitting up in bed no apparent distress, HEENT unremarkable neck benign chest shows decreased breath sounds on the right open on the left heart regular without murmur abdomen soft nontender normoactive bowel tones extremities benign neurologically Objective Labs Result Diagrams: 08/05/18 05:30 08/05/18 05:30 Labs: Laboratory Results - last 24 hr 08/05/18 08/05/18 05:30 05:30 WBC 13.1 H RBC 2.81 L Hgb 8.9 L Hct 25.8 L MCV 91.8 MCH 31.7 MCHC 34.6 RDW 12.9 Plt Count 446 H Neut % (Auto) 71.4 Lymph % (Auto) 10.3 L [place] % (Auto) 15.2 H Eos % (Auto) 2.5 Baso % (Auto) 0.6 Neut # (Auto) 9400 H Lymph # (Auto) 1400 [place] # (Auto) 2000 H Eos # (Auto) 300 Baso # (Auto) 100 Sodium 129 L Potassium 4.6 Chloride 92 L Carbon Dioxide 32 BUN 11 Creatinine 0.90 Estimated GFR > 60.0 BUN/Creatinine Ratio 12.2 Glucose 110 Calcium 8.1 L Total Bilirubin 0.3 AST 55 ALT 43 Alkaline Phosphatase 63 Total Protein 5.2 L Albumin 2.4 L Globulin 2.8 Albumin/Globulin Ratio 0.9 L Assessment & Plan (1) Mass of upper lobe of right lung: Problem details: Open for path today sometime. If so then we can proceed with treatment per Oncology. Current visit: Yes Status: Acute (2) Pleural effusion on right: Problem details: Chest x-ray yesterday did not show significant decreased but also no worsening on the right of this, but now the same what appears to be growing effusion on the left. Current visit: Yes Status: Acute (3) Acute respiratory failure: Problem details: Managing well on just 2 L. Qualifiers: Respiratory failure complication: Current visit: Yes Status: Acute (4) Pneumonia: Problem details: Improving. Current visit: Yes Status: Acute (5) Chest pain: Problem details: Can be an issue with movement. Mostly a chest tube site. Current visit: Yes Status: Acute (6) Anemia: Problem details: Some drop today not clear why continue to follow Current visit: Yes Status: Acute (7) Protein deficiency: Problem details: Diet continues to improve, encouraged same today. Current visit: Yes Status: Acute (8) Hypotension: Problem details: Some better today. Current visit: Yes Status: Acute Plan: Assessment/Plan Narrative: Waiting to early on the pathology for next steps. Continue to follow various issues my sense is we can gain a lot once treatment is starting. Quality VTE Deep Vein Thrombosis/Pulmonary Embolism Present on Admission: No
--- NOTE | 2018-08-05 09:56 | ONC.NAV ---
Description: T/C Activity: Left a message for pt's son, Eddie, requesting contact information for both Epifanio, his older brother, as well as Jonathan, his uncle and now pt's DPOA. Requested return call.
--- NOTE | 2018-08-05 11:32 | PM.PN.1 ---
Subjective Date Patient Seen: 08/05/18 Time Patient Seen: 11:32 Interval history: Patient is slightly more alert today. Ambulating in the hallways prior to my visit. Pain controlled. Exam Vital Signs (past 8 hours): - 08/05/18 05:02 08/05/18 05:30 08/05/18 08:00 Temperature 98.2 F 98 F Pulse Rate 84 92 H 89 Respiratory Rate 20 20 20 Blood Pressure 103/54 L 96/51 L Pulse Oximetry 93 93 93 Fraction of Inspired Oxygen 28 SaO2/FiO2 Ratio 4750 Oxygen Delivery Method Nasal Cannula Oxygen Flow Rate 2 Narrative Exam Narrative: Chest tube dressing show some soilage. Patient otherwise good spirits. Denies significant shortness of breath Chest tube has been to water seal for approximately 24 hr now. No obvious air leak. Drainage remains significant at approximately 800-1000 cc per day. Fluid is serosanguineous. Objective Labs Result Diagrams: 08/05/18 05:30 08/05/18 05:30 Labs: Laboratory Results - last 24 hr 08/05/18 08/05/18 05:30 05:30 WBC 13.1 H RBC 2.81 L Hgb 8.9 L Hct 25.8 L MCV 91.8 MCH 31.7 MCHC 34.6 RDW 12.9 Plt Count 446 H Neut % (Auto) 71.4 Lymph % (Auto) 10.3 L Tucker % (Auto) 15.2 H Eos % (Auto) 2.5 Baso % (Auto) 0.6 Neut # (Auto) 9400 H Lymph # (Auto) 1400 [place] # (Auto) 2000 H Eos # (Auto) 300 Baso # (Auto) 100 Sodium 129 L Potassium 4.6 Chloride 92 L Carbon Dioxide 32 BUN 11 Creatinine 0.90 Estimated GFR > 60.0 BUN/Creatinine Ratio 12.2 Glucose 110 Calcium 8.1 L Total Bilirubin 0.3 AST 55 ALT 43 Alkaline Phosphatase 63 Total Protein 5.2 L Albumin 2.4 L Globulin 2.8 Albumin/Globulin Ratio 0.9 L Chest x-ray today shows no significant changes on water seal. No pneumothorax. He has significant residual effusion with some consolidation and thickening along the pleural surfaces as anticipated. Chest tube remains in position although the proximal port appears to be just at the level of the chest wall. Small left effusion now as well. Assessment & Plan Plan: Assessment/Plan Narrative: 63-year-old male status post thoracoscopic biopsy and drainage of malignant pleural effusion. No air leak with chest tube continues to have significant output. I am uncertain whether he will tolerate even clamping of the tube. Still awaiting past. Overall, prognosis is poor. Will continue to leave chest tube to water seal in anticipation of the final pathology and Medical Oncology recommendations. Again, may require PleurX catheter for palliation only. Quality VTE Deep Vein Thrombosis/Pulmonary Embolism Present on Admission: No
[2018-08-05] MEDS: CEFTRIAXONE 1 GM/50 ML FROZ.PIGGY IV ×2 (12:08→21:38)
[2018-08-05] MEDS: MULTIVIT,CALC,MINS/IRON/FOLIC 1 TABLET 1 TAB PO (12:08)
[2018-08-05] MEDS: GABAPENTIN 300 MG CAPSULE PO ×2 (12:08→21:36)
[2018-08-05] MEDS: DOCUSATE 100 MG CAPSULE PO (12:08)
--- NOTE | 2018-08-05 12:42 | PT.IPTN ---
Current Diagnoses Anemia, unspecified (07/22/18) Unspecified protein-calorie malnutrition (07/22/18) Nicotine dependence, unspecified, in remission (07/22/18) Other psychotic disorder not due to a substance or known physiological condition (07/22/18) Hypotension, unspecified (07/22/18) Pneumonia, unspecified organism (07/22/18) Pleural effusion, not elsewhere classified (07/22/18) Acute respiratory failure, unspecified whether with hypoxia or hypercapnia (07/22/18) Respiratory failure, unspecified, unspecified whether with hypoxia or hypercapnia (07/22/18) Hiccough (07/22/18) Chest pain, unspecified (07/22/18) Localized swelling, mass and lump, trunk (07/22/18) Other nonspecific abnormal finding of lung field (07/22/18) Surgery Performed Operation Date: 07/26/18 13:45 Actual Procedures p Bronchoscopy(Not Applicable) - Dk Hubbard MD s Chest Tube Placement(Right) - Dk Hubbard MD Operation Date: 07/30/18 14:00 Actual Procedures p Thoracoscopy - Dk Hubbard MD Physical Therapy Treatment Note M2 PT-IP Current Condition Start: 07/31/18 12:54 Freq: NEEDED Status: Active Protocol: Document 07/31/18 16:08 AB (Rec: 07/31/18 17:23 AB [id number]) Physical Therapy Current Condition Current Condition Evaluation Date 07/31/18 Treatment Diagnosis R upper lobe lung mass; generalized weakness Onset Date 07/22/18 Precautions Other Precautions chest tube; O2 sat, O2 at 2L/ min M3 PT-IP Subjective Start: 07/31/18 12:54 Freq: NEEDED Status: Active Protocol: Document 08/05/18 10:50 HH (Rec: 08/05/18 12:42 HH [id number]) Subjective Physical Therapy Visit Type Type Treatment Note Visit Start Time 10:50 Visit Stop Time 11:40 Total Visit Minutes 50 Notes Pt has been getting OOB for toileting 2 pa Number of SALES DEVELOPMENT MANAGER Visits 0 Physical Therapy Visit Comments Patient Comments Pt wants to get out of bed and walk. M4 PT-IP Mobility and Gait Start: 07/31/18 12:54 Freq: NEEDED Status: Active Protocol: Document 08/05/18 10:50 HH (Rec: 08/05/18 12:42 HH [id number]) PT-Bed Mobility Assessment Supine to Sit Supine to Sit Minimal Assistance 1 Person Assistance Head of Bed Elevated Bedrails Sit to Supine Sit to Supine Standby Assistance Scooting Scooting to Edge of Bed Standby Assistance PT-Transfer Assessment Sit to and From Stand Sit to and from Stand Standby Assistance 1 Person Assistance Use of Upper Extremities Equipment Transfer Assistive Device Gait Belt Front Wheeled Walker Transfers Transfer Destination Bed Transfer Ability Level of Assist Standby Assistance 1 Person Assistance Use of Upper Extremities Comments Mobility Comments O2 at rest 98% with 2 L. With activity 90--96% on 2L Gait Assessment Gait Gait Assistance Required: Contact Guard Assist 2 Person Assist Distance (Feet) 220 Assistive Devices Assistive Device Gait Belt Front Wheeled Walker Factors Limiting Gait Function Factors Limiting Gait Function Decreased Activity Tolerance Decreased Strength Difficulty Following Directions Pain Poor Balance Poor Safety Awareness Comments Gait Comments Pt amb with PT and RN today due to chest tube in place. O2 sat 88-96% on 2-4 L O2 during amb and stair climbing. Stair Climbing Assessment Evaluation Level of Assist On Stairs Contact Guard Assistance 1 Person Assistance Devices Stair Climbing Assistive Devices Left Railing Right Railing Technique/Endurance Stair Climbing Direction Ascend and Descend Stair Climbing Technique Step to Step Number of Steps Climbed 2 Query Text: Stair Climbing Set # Repetitions (reps) 4 Comments Stair Climbing Comments Pt used stepped to pattern for stair climbing. Pt descends in backward direction due to chest tube attactment. Pt did not show acute distress and LOB but he did show decreased R foot clearance during ascending. M5 PT-IP Objective Assessments Start: 07/31/18 12:54 Freq: NEEDED Status: Active Protocol: Document 07/31/18 16:08 AB (Rec: 07/31/18 17:23 AB [id number]) Orientation Orientation/Cognition Level of Alertness Confusional State Orientation Name Place Safety Awareness Decreased Safety Awareness Gross Range of Motion Lower Extremity ROM Assessment Within Functional Limits Strength Lower Extremity Strength Assessment Within Functional Limits Muscle Tone Muscle Tone WNL Yes M6 PT-IP Treatment Start: 07/31/18 12:54 Freq: NEEDED Status: Active Protocol: Document 08/04/18 13:56 RCC (Rec: 08/04/18 15:34 RCC [id number]) Physical Therapy Treatment Other Treatments Other Treatment Performed standing exercises: mini- squats, marching throughout session M7 PT-IP Assessment and Plan Start: 07/31/18 12:54 Freq: NEEDED Status: Active Protocol: Document 08/05/18 10:50 HH (Rec: 08/05/18 12:42 HH [id number]) PT Summary Assessment and Plan Summary Assessment Summary Pt mobilized with PT and RN today with chest tube attached . Pt presents increased overall amb distance and able to climb stair. Pt cont to move slow and showed decreased R foot clearance during ascending stair. He was able to maintain his O2 sat 90-98% at all time with 2L-4L NC. Pt used his ACT TUTOR once today during sit to supine at the end of tx session. Goals Bed Mobility Goal Standby Assistance Transfer Goal Standby Assistance Cane Four Wheeled Walker Gait Goal Standby Assistance Cane Front Wheel Walker Four Wheel Walker Gait Distance 500 Other Goals up/down 1 steps using FWW SBA Days to Meet Goals 8 Frequency of Treatment Frequency Of Treatment Once a Day Treatment Plan Other Recommendations and Next Treatment CG training, progress activity Focus tolerance, bed mobility and gait. Recommendations To Nursing Amount of Assist Needed 1 Person Assist Discharge Recommendations PT Discharge Recommendations Home with 29/01 Assist Equipment Needed for Home Before will need a FWW Discharge
--- NOTE | 2018-08-05 15:49 | CM.DANOTE ---
DCP/continued: Reviewed chart. Patient remains with chest tube. PSYCHOLOGIST EXPERIMENTAL briefly met with patient and his Mother/Julissa at bedside. Patient reports that he is awaiting biopsy results. Notified patient and Mother/Julissa that PSYCHOLOGIST EXPERIMENTAL would continue to follow and provide support and discharge planning. P: CM team to follow closely for needs. INGE Mcrae
[2018-08-05] MEDS: LORazepam 2 MG/ML SYRINGE 1 MG IV (22:18)
--- NOTE | 2018-08-05 22:48 | PC.NURSE ---
1500- assumed care of pt from outgoing shift at 1500- this day. Pt awake and alert. multiple family members in room. dressing to chest, intact. reinforced as pt does not yet want it changed. pt cooperative with nursing staff. pt uses call light. urinal and calls when needing assistance. pt family in pts room. and switch with waiting room. Pt does express that he is very tired tonight and is wondering if there is anything he could have. discussed Ativan with patient. 1999- dressing to chest tube changed. cleaned around site. pt yepez shave small incision and gauze drain to upper right abdomen. Pt tolerated dressing change well. pt did get his GROUND SOURCE HEAT PUMP TECHNICIAN of morphine prior to dressing changed. patient wanted his mother in the room with the chest tube dressing change. mother helped hold patient while we were changing the dressing. Pt tolerated well. 2199- pt given Ativan to help relax pt as he was anxious and worried about everything going on around him. Pt worried about the chest tube and dressing. 324- pt hallucinating according to his brother. Pt asked what was going on and pt short of breath still with any speaking. Pt laid back down in bed. pt stated he felt that Jonny was with him so he felt comfortable enough to go to sleep. some words were inaudible. bed alarm on. will continue to monitor. brother at bedside.
[2018-08-06] VITALS (14 sets, daily range): BP systolic 90–120; BP diastolic 47–68; PULSE 87–98; RESP 13–22; TEMP 36.7–37.3; O2SAT 89–98
[2018-08-06] MEDS: ALBUTEROL 2.5 MG/3 ML NEB (ADULT) INH ×3 (03:29→15:53)
[2018-08-06 06:31] LABS: Add Manual Diff / Slide Review NO; Basophils Absolute Auto 100 /uL (0-100); Basophils Percent Auto 0.9 % (0-2); Eosinophils Absolute Auto 300 /uL (0-450); Eosinophils Percent Auto 2.6 % (2-4); Hematocrit 24.2 % (41-53); Hemoglobin 8.2 g/dL (13.5-17.5); Lymphocytes Absolute Auto 1000 /uL (1100-4500); Lymphocytes Percent Auto 9.5 % (25-40); Mean Corpuscular HGB Conc 33.7 % (30-36); Mean Corpuscular Hemoglobin 31.3 PG (26-34); Mean Corpuscular Volume 92.7 fL (80-100); Monocytes Absolute Auto 1700 /uL (0-900); Monocytes Percent Auto 16.3 % (3-14); Neutrophils Absolute Auto 7200 /uL (1500-7000); Neutrophils Percent Auto 70.7 % (50-75); Platelet Count 418 X10^3/uL (150-400); Red Blood Cell Count 2.61 X10^6/uL (4.5-5.9); Red Cell Distribution Width 13.2 % (11.6-14.8); White Blood Cell Count 10.2 X10^3/uL (4.5-11.0)
[2018-08-06 06:37] LABS: Blood Urea Nitrogen 8 mg/dL (9-20); Calcium 7.3 mg/dL (8.4-10.2); Carbon Dioxide 31 mmol/L (22-32); Chloride 94 mmol/L (98-107); Estimated Glomerular Filt Rate > 60.0 mL/min (>60); Glucose 102 mg/dL (80-110); HEMOLYSIS < 15 (0-50); Potassium 4.6 mmol/L (3.4-5.1); Sodium 131 mmol/L (137-145)
[2018-08-06] MEDS: MORPHINE PCA 30 MG/30 ML PCA.VIAL IV ×3 (07:06→22:31)
--- NOTE | 2018-08-06 07:51 | DI.RAD.S_ITS ---
PROCEDURE: XR CHEST 1V INDICATIONS: Assess chest tube placement TECHNIQUE: One view of the chest was acquired. COMPARISON: [facility], CR, XR CHEST 1V, 08/05/2018, 6:09. [facility], CR, XR CHEST 1V, 08/04/2018, 11:20. [facility], CR, XR CHEST 1V, 08/01/2018, 9:04. [facility], CR, XR CHEST 1V, 07/31/2018, 11:36. FINDINGS: Surgical changes and devices: Right upper extremity PICC with tip projecting over the superior vena cava. Stable positioning of the right thoracostomy tube with tip projecting over the right upper lobe. Lungs and pleura: Moderate right and small left pleural effusions are similar in size to comparison exam. Persistent diffuse opacities of the right hemithorax are similar in appearance to prior exam. Mild left basilar and retrocardiac opacities are noted, similar to prior exam. No convincing pneumothorax identified. Mediastinum: Mediastinal contours appear normal. Heart size is normal. Bones and chest wall: Osseous structures are similar in appearance to prior exam. IMPRESSION: 1. Stable positioning of the right thoracostomy tube. 2. Moderate right and small left pleural effusions are similar in appearance to prior exam. 3. Similar diffuse right and mild left basilar pulmonary opacities, concerning for atelectasis versus pneumonia in the appropriate clinical setting. Dictated by: Robert Sánchez M.D. on 08/06/2018 at 9:46 Approved by: Robert Sánchez M.D. on 08/06/2018 at 9:58
--- NOTE | 2018-08-06 08:16 | PC.NURSE ---
day shift arrived on shift and pt is more confused than yesterday with increased SOB. Audible wheezing. couldn't grasp how to get out of bed to go to the bathroom, needed lots of direction. up to BSC and SOB increased. wheezes auscultated bilaterally, R lung diminished and more so than yesterday. Pt feels symptomatic and O2 increased to 3L for comfort. VS taken and BP lower than previous however pt is seated on BSC, asymptomatic for BP. RT assessed pt and Dr Hubbard called, CXR ordered. Returned to bed and repositioned pt for comfort. will continue to monitor.
[2018-08-06] MEDS: CEFTRIAXONE 1 GM/50 ML FROZ.PIGGY IV ×2 (10:18→21:09)
--- NOTE | 2018-08-06 13:28 | PM.PN.1 ---
Subjective Date Patient Seen: 08/06/18 Time Patient Seen: 08:02 Interval history: Patient continues to have a significant large amounts of fluid drain from his chest tube. The chest tube has become displaced with 1 of the suction openings ext dear to the skin they are going to replace his chest tube and repeat facet in position later today. I suspect that that may help get more fluid out more efficiently and make it easier for him to breathe and function. No report back yet on pathology. Will try to track that down today at think it has gone to [facility] will contact them. Patient denies any significant shortness of breath with that at this particular time although accumulation of fluid that grew certainly returns. Denies cardiac like chest pain but there is definite chest pain with movement or instrumentation of his chest tube site. Exam Vital Signs (past 8 hours): - 08/06/18 07:14 08/06/18 07:15 08/06/18 08:00 Temperature 98.0 F Pulse Rate 93 H Respiratory Rate Blood Pressure 104/52 L Pulse Oximetry 93 89 L 97 08/06/18 12:32 08/06/18 12:52 Temperature 98.2 F Pulse Rate 92 H 92 H Respiratory Rate 20 Blood Pressure 95/55 L 109/59 L Pulse Oximetry 94 Fraction of Inspired Oxygen 28 SaO2/FiO2 Ratio 4750 Oxygen Delivery Method Nasal Cannula Oxygen Flow Rate 1 Narrative Exam Narrative: Patient sitting fairly comfortably in bed alert oriented and responsive appropriately to questions with clear speech PERRLA EOM are intact Neck without masses Decreased breath sounds throughout Chest tube in position on the right side some bleeding which seems small amount Heart shows regular rate and rhythm without murmur No significant dependent edema Neuro shows patient to be intact to sensory and motor speech is clear. Patient a little bit groggy but has been getting some pain medications. Objective Labs Result Diagrams: 08/06/18 06:18 08/06/18 06:18 Labs: Laboratory Results - last 24 hr 08/06/18 08/06/18 06:18 06:18 WBC 10.2 RBC 2.61 L Hgb 8.2 L Hct 24.2 L MCV 92.7 MCH 31.3 MCHC 33.7 RDW 13.2 Plt Count 418 H Neut % (Auto) 70.7 Lymph % (Auto) 9.5 L [place] % (Auto) 16.3 H Eos % (Auto) 2.6 Baso % (Auto) 0.9 Neut # (Auto) 7200 H Lymph # (Auto) 1000 L [place] # (Auto) 1700 H Eos # (Auto) 300 Baso # (Auto) 100 Sodium 131 L Potassium 4.6 Chloride 94 L Carbon Dioxide 31 BUN 8 L Creatinine 0.80 Estimated GFR > 60.0 BUN/Creatinine Ratio 10.0 Glucose 102 Calcium 7.3 L Assessment & Plan Plan: Assessment/Plan Narrative: Assessment 1. Lung malignancy with accumulating pleural effusion. Mediastinal biopsy still pending terms of pathology. Patient has times of some decreased cognitive alertness. 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 Will try to track down pathology for Oncology so they can make some decisions about potential therapies and treatments that might diminish the amount of fluid he is producing. Surgical consultation also monitoring and will be replacing his tube since it has become dislodged. Quality VTE Deep Vein Thrombosis/Pulmonary Embolism Present on Admission: No
--- NOTE | 2018-08-06 13:57 | PC.NURSE ---
Discharge pt medicated with oxycodone and ibuprofen to help control pain, pt states that it is better with medication. PIV removed prior to d/c. pt has Rx already as he is a [facility] pt. Dressing is intact, 2 spots of shaddow drainage in place on dressing. pt aware to monitor dressing at home. d/c instructions provided to pt and his . aware of f/u apt with surgeon and also to contact surgeon with any additional questions or concerns. pt left in w/c with [employer] escort and . pt states he took all belongings with him.
--- NOTE | 2018-08-06 15:09 | PT.IPTN ---
Current Diagnoses Anemia, unspecified (07/22/18) Unspecified protein-calorie malnutrition (07/22/18) Nicotine dependence, unspecified, in remission (07/22/18) Other psychotic disorder not due to a substance or known physiological condition (07/22/18) Hypotension, unspecified (07/22/18) Pneumonia, unspecified organism (07/22/18) Pleural effusion, not elsewhere classified (07/22/18) Acute respiratory failure, unspecified whether with hypoxia or hypercapnia (07/22/18) Respiratory failure, unspecified, unspecified whether with hypoxia or hypercapnia (07/22/18) Hiccough (07/22/18) Chest pain, unspecified (07/22/18) Localized swelling, mass and lump, trunk (07/22/18) Other nonspecific abnormal finding of lung field (07/22/18) Surgery Performed Operation Date: 07/26/18 13:45 Actual Procedures p Bronchoscopy(Not Applicable) - Dk Hubbard MD s Chest Tube Placement(Right) - Dk Hubbard MD Operation Date: 07/30/18 14:00 Actual Procedures p Thoracoscopy - Dk Hubbard MD Physical Therapy Treatment Note M2 PT-IP Current Condition Start: 07/31/18 12:54 Freq: NEEDED Status: Active Protocol: Document 07/31/18 16:08 AB (Rec: 07/31/18 17:23 AB [id number]) Physical Therapy Current Condition Current Condition Evaluation Date 07/31/18 Treatment Diagnosis R upper lobe lung mass; generalized weakness Onset Date 07/22/18 Precautions Other Precautions chest tube; O2 sat, O2 at 2L/ min M3 PT-IP Subjective Start: 07/31/18 12:54 Freq: NEEDED Status: Active Protocol: Document 08/06/18 14:45 CLB (Rec: 08/06/18 15:08 CLB [id number]) Subjective Physical Therapy Visit Type Type Patient Refusal Notes Pt refused. Family in room. M4 PT-IP Mobility and Gait Start: 07/31/18 12:54 Freq: NEEDED Status: Active Protocol: Document 08/05/18 10:50 HH (Rec: 08/05/18 12:42 HH [id number])
--- NOTE | 2018-08-06 18:46 | P.PNONC_ITS ---
PN -Subjective Interval history: The patient is a 63-year-old man who I saw initially about 2 weeks ago. He presented with large malignant effusion. His initial thoracentesis did confirm malignant cells although pathology could not determine exact cell type. He went on to have a chest tube placed. Last week, he had thoracoscopy with the additional tissue taken for pathologic purposes. There still is no definitive diagnosis. Preliminary discussions with the pathologist showed that this was a undifferentiated epithelioid malignancy. It was not consistent with mesothelioma, melanoma or lymphoma. One the was a SMARC deficient adenocarcinoma of the lung. Another possibility was neuroendocrine tumor or pulmonary sarcoma. The patient has been bothered by a ongoing pain in the chest. He has been using a ACCOUNT SUPPORT REP but does not like the feeling of morphine. He feels somewhat confused and has been having what he describes as terrors. He has been decreasing the amount that he has been using and has been feeling better. He does note episodes of shortness of breath and is requiring oxygen. His appetite has been poor. Feels like his strength has been gradually declining. On exam: He is awake alert and oriented. He is somewhat anxious appearing. He has a chest tube in place. His heart is regular rate and rhythm without murmur. Is not further examined. Assessment plan: I discussed with the patient and his family update from pathology. I explained that of the leading content hers for diagnosis, adenocarcinoma of the lung would be the most treatable of those. Typically, chemotherapy result in a response rate of about 1/3 with an additional 1/3 having stable disease. Performance status is are most important predictor of who will do well with chemotherapy in who would not. The realistically, his performance status is at best 2. This is associated with some improvement in survival but an increased risk for toxicity compared to patients with a performance status of 0 or 1. Side effects would include potential for nausea vomiting alopecia myelosuppression risk for infection fatigue changes in taste and appetite as well as risk for neuropathy. The expected benefit of chemotherapy might be an improvement in quality of life if he had a substantial response and a modest improvement in survival. Generally, that improvement benefit is measured in weeks or months. We also talked about the possibility of changing the focus of her care to quality of life. The patient was quite adamant that he did not feel the rigors of chemotherapy would be worth the marginal improvement in his survival. He feels quite strongly that he does in fact want to focus on quality and does not want to subject himself to the rigors of chemotherapy. He feels like his last few weeks in the hospital have been painful and difficult for him. He feels like his quality of life and performance status have been steadily declining. Instead, he would like to get home with his family, get his affairs in order and try to preserve his dignity as much as possible. I think his quality of life would be best maximized by controlling his malignant effusion. He is I think scheduled for a PleurX catheter tomorrow. Will ask for a hospice consult and try and arrange for him to go home as soon as can be practically arranged. Greater than 1 hr was spent with the patient and his family the majority in counseling. Home Medications and Allergies Home Medications Medication Instructions Recorded Confirmed Type diazepam 5 mg PO Q6H PRN 07/22/18 07/22/18 History Allergies Allergy/AdvReac Type Severity Reaction Status Date / Time pollen extracts Allergy Unknown Verified 07/17/18 15:11 [POLLEN EXTRACTS] Iodinated Contrast- Oral and AdvReac Vomiting Verified 07/22/18 10:16 IV Dye Results - Labs Laboratory Last Values WBC 10.2 X10^3/uL (4.5-11.0) 08/06/18 06:18 RBC 2.61 X10^6/uL (4.5-5.9) L 08/06/18 06:18 Hgb 8.2 g/dL (13.5-17.5) L 08/06/18 06:18 Hct 24.2 % (41-53) L 08/06/18 06:18 MCV 92.7 fL (80-100) 08/06/18 06:18 MCH 31.3 PG (26-34) 08/06/18 06:18 MCHC 33.7 % (30-36) 08/06/18 06:18 RDW 13.2 % (11.6-14.8) 08/06/18 06:18 Plt Count 418 X10^3/uL (150-400) H 08/06/18 06:18 Neut % (Auto) 70.7 % (50-75) 08/06/18 06:18 Lymph % (Auto) 9.5 % (25-40) L 08/06/18 06:18 [place] % (Auto) 16.3 % (3-14) H 08/06/18 06:18 Eos % (Auto) 2.6 % (2-4) 08/06/18 06:18 Baso % (Auto) 0.9 % (0-2) 08/06/18 06:18 Neut # (Auto) 7200 /uL (3467-8112) H 08/06/18 06:18 Lymph # (Auto) 1000 /uL (3900-2740) L 08/06/18 06:18 [place] # (Auto) 1700 /uL (0-900) H 08/06/18 06:18 Eos # (Auto) 300 /uL (0-450) 08/06/18 06:18 Baso # (Auto) 100 /uL (0-100) 08/06/18 06:18 PT 12.0 SECONDS (10.1-12.7) 07/22/18 08:46 INR 1.0 (0.9-1.3) 07/22/18 08:46 APTT 21 SECONDS (26.4-36.2) L D 07/22/18 08:46 Sodium 131 mmol/L (137-145) L 08/06/18 06:18 Potassium 4.6 mmol/L (3.4-5.1) 08/06/18 06:18 Chloride 94 mmol/L (98-107) L 08/06/18 06:18 Carbon Dioxide 31 mmol/L (22-32) 08/06/18 06:18 BUN 8 mg/dL (9-20) L 08/06/18 06:18 Creatinine 0.80 mg/dL (0.66-1.25) 08/06/18 06:18 Estimated GFR > 60.0 mL/min (>60) 08/06/18 06:18 BUN/Creatinine Ratio 10.0 (6-22) 08/06/18 06:18 Glucose 102 mg/dL (80-110) 08/06/18 06:18 Calcium 7.3 mg/dL (8.4-10.2) L 08/06/18 06:18 Total Bilirubin 0.3 mg/dL (0.2-1.3) 08/05/18 05:30 AST 55 IU/L (17-59) 08/05/18 05:30 ALT 43 IU/L (21-72) 08/05/18 05:30 Alkaline Phosphatase 63 U/L (38-126) 08/05/18 05:30 Total Protein 5.2 g/dL (6.3-8.2) L 08/05/18 05:30 Albumin 2.4 g/dL (3.5-5.0) L 08/05/18 05:30 Globulin 2.8 g/dL (1.7-4.1) 08/05/18 05:30 Albumin/Globulin Ratio 0.9 (1.0-2.8) L 08/05/18 05:30 Specimen Hemolysis Cancelled 07/22/18 08:46 - Imaging Additional studies: Procedures Drainage of Right Pleural Cavity with Drainage Device, Percutaneous Approach () Extraction of Right Pleura, Percutaneous Endoscopic Approach, Diagnostic () Inspection of Tracheobronchial Tree, Via Natural or Artificial Opening Endoscopic (07/22/18) Assessment and Plan (1) Mass of upper lobe of right lung Problem details: Open for path today sometime. If so then we can proceed with treatment per Oncology. Current visit: Yes Status: Acute (2) Pleural effusion on right Problem details: Chest x-ray yesterday did not show significant decreased but also no worsening on the right of this, but now the same what appears to be growing effusion on the left. Current visit: Yes Status: Acute (3) Acute respiratory failure Problem details: Managing well on just 2 L. Current visit: Yes Status: Acute (4) Pneumonia Problem details: Improving. Current visit: Yes Status: Acute (5) Chest pain Problem details: Can be an issue with movement. Mostly a chest tube site. Current visit: Yes Status: Acute (6) Anemia Problem details: Some drop today not clear why continue to follow Current visit: Yes Status: Acute (7) Protein deficiency Problem details: Diet continues to improve, encouraged same today. Current visit: Yes Status: Acute (8) Hypotension Problem details: Some better today. Current visit: Yes Status: Acute
--- NOTE | 2018-08-06 19:58 | PM.PNPO.1 ---
Subjective Date Patient Seen: 08/06/18 Time Patient Seen: 19:03 Interval history: Patient leaking lot round his chest tube. One of the eyes have come out of the chest cavity which explains that. I have asked them to put his tube to suction. The patient apparently has been talking to family and to the oncologist. He really does not want to proceed with any kind of chemotherapy or surgical treatment. He has come to the inclusion he is dying any really is not going to be extending his life a great deal. His biggest concern is the sense of air hunger he has felt in the past. Exam Vital Signs (past 8 hours): - 08/06/18 12:32 08/06/18 12:52 08/06/18 14:34 Temperature 98.2 F Pulse Rate 92 H 92 H 95 H Respiratory Rate 20 Blood Pressure 95/55 L 109/59 L 113/59 L Pulse Oximetry 94 96 08/06/18 16:15 Temperature 98.2 F Pulse Rate 92 H Respiratory Rate 13 Blood Pressure 97/53 L Pulse Oximetry 98 Fraction of Inspired Oxygen 28 SaO2/FiO2 Ratio 4750 Oxygen Delivery Method Nasal Cannula Oxygen Flow Rate 2 Narrative Exam Narrative: Tube draining well. Objective Labs Result Diagrams: 08/06/18 06:18 08/06/18 06:18 Labs: Laboratory Results - last 24 hr 08/06/18 08/06/18 06:18 06:18 WBC 10.2 RBC 2.61 L Hgb 8.2 L Hct 24.2 L MCV 92.7 MCH 31.3 MCHC 33.7 RDW 13.2 Plt Count 418 H Neut % (Auto) 70.7 Lymph % (Auto) 9.5 L [place] % (Auto) 16.3 H Eos % (Auto) 2.6 Baso % (Auto) 0.9 Neut # (Auto) 7200 H Lymph # (Auto) 1000 L [place] # (Auto) 1700 H Eos # (Auto) 300 Baso # (Auto) 100 Sodium 131 L Potassium 4.6 Chloride 94 L Carbon Dioxide 31 BUN 8 L Creatinine 0.80 Estimated GFR > 60.0 BUN/Creatinine Ratio 10.0 Glucose 102 Calcium 7.3 L Assessment & Plan Post-op Postoperative Procedures Operation Date: 07/26/18 13:45 Actual Procedures Side Surgeon p Bronchoscopy Not Applicable Dk Hubbard MD s Chest Tube Placement Right Dk Hubbard MD Operation Date: 07/30/18 14:00 Actual Procedures Side Surgeon p Thoracoscopy Dk Hubbard MD Postoperative status narrative: I spent a good deal of time talking with him. He wants to get his affairs in order which I encouraged him to do. He is a little concerned because he has sometimes hallucinating and paranoid on the pain medication. I was going to change him to a fentanyl patch but he asked me not to do that until tomorrow. My plan Postoperative plan narrative: My plan now is to remove his chest tube see he can go home and replace it with a PleurX catheter which can be managed by him and his family at home. He might be able to go home tomorrow but more likely the following day. He is anxious to go home and get everything in order that needs to be done before his . He seems to be very realistic about his disease process and expectations of the future. Quality VTE Deep Vein Thrombosis/Pulmonary Embolism Present on Admission: No
[2018-08-06] MEDS: GABAPENTIN 300 MG CAPSULE PO (21:09)
[2018-08-06] MEDS: DEXTROSE 5%-0.45% NS 1,000 ML 80 ML IV (21:16)
--- NOTE | 2018-08-06 23:46 | PC.NURSE ---
1500- assumed care of pt from outgoing shift. pt asleep in bed. will continue to monitor pt has family in room. Pt npo status for possible chest tube removal and replacement. waiting for md to visit pt. around 1800- oncology here to visit with pt with grim results/prognosis/ in with pt for quite a while to discuss results. some are not back yet but per md pt has limited options. family and myself in there when md discussed with pt and family as pt was very anxious and worried that his family would prevent him form making his decisions. about his etc. pt is anxious about that and his family. all family member were in agreement that if these are his wishes they are ok with them. Pt was emotional and work of breathing increased so pt increased to 3 l nc. Pt tolerated well. pt did have large bm, multiple large bm according to antonio patel. and pt had not stooled for quite some time. Pt bed alarm on. side rails upx4. pt belongings and call light within reach. brother, garrett in pts room. 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 and when and why to use. pt states, oh yeah, yeah, I know ok. thank you pt given an ensure after md in and stated it was ok. will continue to monitor.
[2018-08-07] VITALS (21 sets, daily range): BP systolic 84–121; BP diastolic 43–74; PULSE 79–100; RESP 12–26; TEMP 36.5–37.6; O2SAT 88–98; BMI 23.9
--- NOTE | 2018-08-07 | DI.RAD.S_ITS ---
PROCEDURE: XR CHEST 1V INDICATIONS: Right chest tube/drain placement in OR 2 TECHNIQUE: One view of the chest was acquired. COMPARISON: [facility], CR, XR CHEST 1V, 08/06/2018, 8:00. [facility], CR, XR CHEST 1V, 08/05/2018, 6:09. [facility], CR, XR CHEST 1V, 08/04/2018, 11:20. [facility], CR, XR CHEST 1V, 08/01/2018, 9:04. FINDINGS: Intraoperative fluoroscopy demonstrates the catheterization and subsequent placement of a right thoracostomy tube/drain with multiple side ports at the right lung base. IMPRESSION: Intraoperative fluoroscopy demonstrates the catheterization and subsequent placement of a right thoracostomy tube/drain with multiple side ports at the right lung base. Dictated by: Robert Sánchez M.D. on 08/07/2018 at 23:31 Approved by: Robert Sánchez M.D. on 08/07/2018 at 23:32
--- NOTE | 2018-08-07 | DI.RAD.S_ITS ---
PROCEDURE: XR CHEST 1V INDICATIONS: PACU RIGHT CHEST TUBE/DRAIN PLACEMENT TECHNIQUE: One view of the chest was acquired. COMPARISON: [facility], CR, XR CHEST 1V, 08/07/2018, 17:33. [facility], CR, XR CHEST 1V, 08/06/2018, 8:00. [facility], CR, XR CHEST 1V, 08/05/2018, 6:09. [facility], CR, XR CHEST 1V, 08/04/2018, 11:20. FINDINGS: Surgical changes and devices: There is a right upper extremity PICC with tip projecting over superior vena cava. There has been interval removal of the previously noted right thoracostomy tube since comparison exam of 08/06/18, with subsequent placement of a multi-side port thoracostomy tube at the right lung base. Overlying right chest wall subcutaneous emphysema noted. Lungs and pleura: No pneumothorax. Moderate right and small left pleural effusions are again noted. Persistent diffuse opacities of the right hemithorax are mildly increased from prior exam. Diffuse left pulmonary opacities are increased from prior exam. Increased bibasilar pulmonary opacities are also noted. Mediastinum: The right mediastinal contours are obscured by adjacent pulmonary opacities. Cardiac silhouette is within normal limits for size. Bones and chest wall: Osseous structures are unchanged from prior exam. IMPRESSION: 1. Interval placement of a multi-side port thoracostomy tube at the right lung base. 2. Similar moderate right and small left pleural effusions. 3. Interval increase in diffuse bilateral pulmonary opacities, which may represent worsening atelectasis, pulmonary edema, or pneumonia. Dictated by: Robert Sánchez M.D. on 08/07/2018 at 23:34 Approved by: Robert Sánchez M.D. on 08/07/2018 at 23:41
--- NOTE | 2018-08-07 00:14 | PC.NURSE ---
Addendum entered by Alma Dawn R.N. 08/07/18 06:21: Patient slept at intervals. Less anxious this morning and breathing not as labored. On oxygen at 4L/min for comfort and sats staying > 95%. ASSISTANT MERCHANDISER continuous + demand until 0700 this morning as per MD order. Discussion held regarding plan for today and patient hopeful he will be able to go home later today or tomorrow with hospice. Speaks freely about dying and wanting quality rather than quantity of life. 70cc out of chest tube during this shift; continues at 20cm suction. Dressing without drainage and intact. Original Note: Addendum entered by Alma Dawn R.N. 08/07/18 00:20: Correction to previous note: last BM was 08/06 Original Note: Patient is alert and oriented. Breath sounds diminished on right but CTA with sat of 96% on 3L/min oxygen; patient is SOB with conversation and expresses anxiety re: air hunger so oxygen increased to 4L/min for additional comfort; declined Ativan. On continuous pulse oximetry. Chest tube intact and connect to 20mm continuous suction; dressing around tube is CDI. HRR. Denies nausea. BT present and abdomen is soft; has not had BM since 07/30. Voiding per urinal; brother rooming in and assists patient as needed but knows to call for staff assist if needed. States pain is 3/10 and has ASSISTANT MERCHANDISER infusing at 0.5mg/h plus demand dosing so encouraged to use ASSISTANT MERCHANDISER for additional pain control. Is NPO for impending procedure in a.m. Fall risk score is moderate; bed alarm is activated. Declines SCD's as they make him feel more tied down/anxious.
[2018-08-07] MEDS: ALBUTEROL 2.5 MG/3 ML NEB (ADULT) INH ×4 (05:14→20:24)
[2018-08-07] MEDS: MORPHINE PCA 30 MG/30 ML PCA.VIAL IV ×3 (05:58→22:22)
[2018-08-07] MEDS: DEXTROSE 5%-0.45% NS 1,000 ML 125 ML IV ×2 (05:59→14:19)
[2018-08-07 06:14] LABS: Add Manual Diff / Slide Review NO; Basophils Absolute Auto 100 /uL (0-100); Basophils Percent Auto 0.8 % (0-2); Eosinophils Absolute Auto 200 /uL (0-450); Eosinophils Percent Auto 2.2 % (2-4); Hematocrit 24.5 % (41-53); Hemoglobin 8.2 g/dL (13.5-17.5); Lymphocytes Absolute Auto 1100 /uL (1100-4500); Lymphocytes Percent Auto 10.6 % (25-40); Mean Corpuscular HGB Conc 33.4 % (30-36); Mean Corpuscular Hemoglobin 30.8 PG (26-34); Mean Corpuscular Volume 92.2 fL (80-100); Monocytes Absolute Auto 1700 /uL (0-900); Neutrophils Absolute Auto 7000 /uL (1500-7000); Neutrophils Percent Auto 69.4 % (50-75); Platelet Count 446 X10^3/uL (150-400); Red Blood Cell Count 2.66 X10^6/uL (4.5-5.9); Red Cell Distribution Width 13.1 % (11.6-14.8)
[2018-08-07 06:22] LABS: Alanine Aminotransferase 42 IU/L (21-72); Albumin 2.2 g/dL (3.5-5.0); Albumin Globulin Ratio 0.9 (1.0-2.8); Alkaline Phosphatase 61 U/L (38-126); Aspartate Aminotransferase 56 IU/L (17-59); BUN Creatinine Ratio 8.8 (6-22); Bilirubin Total 0.3 mg/dL (0.2-1.3); Blood Urea Nitrogen 7 mg/dL (9-20); Calcium 7.8 mg/dL (8.4-10.2); Carbon Dioxide 31 mmol/L (22-32); Chloride 97 mmol/L (98-107); Estimated Glomerular Filt Rate > 60.0 mL/min (>60); Globulin 2.5 g/dL (1.7-4.1); Glucose 98 mg/dL (80-110); HEMOLYSIS < 15 (0-50); Potassium 4.1 mmol/L (3.4-5.1); Sodium 131 mmol/L (137-145); Total Protein 4.7 g/dL (6.3-8.2)
[2018-08-07] MEDS: CEFTRIAXONE 1 GM/50 ML FROZ.PIGGY IV ×2 (08:34→22:09)
--- NOTE | 2018-08-07 09:26 | P.PN_ITS ---
Subjective Date Patient Seen: 08/07/18 Time Patient Seen: 09:15 Interval history: A lengthy discussion with patient, the brother that has been here on throughout, with the and another brother present as well. All reviewing the information provided last night by Oncology, also revealing note of general surgeon. It seems that while we still have no definitive pathology other is a strong suggestion that the tumor that we are facing is very likely either not treatable or only minimally treatable, with the latter perhaps involving some discomfort or other impacts on life quality that might make it undesirable. As I emphasize though the final pathology may point in the very different direction that might well be treatable. But the patient last night of the evidently and ongoing today feels that he has been patient enough while in the hospital for these couple of weeks dealing with the issues of hospitalization and he is tired of that and anxious to be home. He was determined to do so with hospice at the time of the initial presentation in the ER but as he points out he has been patient and willing to give it some time as we waited for the diagnosis to arise. But at this point he is eager to just get over with. So he would like to go home on hospice with whatever that will require, including placement of the PleurX device. And then when pathology comes back if it is something more favorable he would be happy to pursue treatment at that time if it is reasonable. For now though he is committed to whatever is necessary to stay comfortable while he enjoys his last days. Exam Vital Signs (past 8 hours): - 08/07/18 05:14 08/07/18 05:15 08/07/18 08:00 Temperature 97.7 F 98.3 F Pulse Rate 87 88 Respiratory Rate 16 20 Blood Pressure 104/47 L 101/47 L Pulse Oximetry 96 97 95 Fraction of Inspired Oxygen 28 SaO2/FiO2 Ratio 4750 Oxygen Delivery Method Nasal Cannula Oxygen Flow Rate 4 Narrative Exam Narrative: Sitting up in bed, no apparent distress, normal breathing effort , and quite clear, more so than he has been over the last several days. HEENT unremarkable neck benign chest shows some breath sounds on right more present on left, heart regular without murmur abdomen soft extremities benign neurologically benign Objective Labs Result Diagrams: 08/07/18 05:58 08/07/18 05:58 Labs: Laboratory Results - last 24 hr 08/07/18 08/07/18 05:58 05:58 WBC 10.0 RBC 2.66 L Hgb 8.2 L Hct 24.5 L MCV 92.2 MCH 30.8 MCHC 33.4 RDW 13.1 Plt Count 446 H Neut % (Auto) 69.4 Lymph % (Auto) 10.6 L Brewster % (Auto) 17.0 H Eos % (Auto) 2.2 Baso % (Auto) 0.8 Neut # (Auto) 7000 Lymph # (Auto) 1100 Brewster # (Auto) 1700 H Eos # (Auto) 200 Baso # (Auto) 100 Sodium 131 L Potassium 4.1 Chloride 97 L Carbon Dioxide 31 BUN 7 L Creatinine 0.80 Estimated GFR > 60.0 BUN/Creatinine Ratio 8.8 Glucose 98 Calcium 7.8 L Total Bilirubin 0.3 AST 56 ALT 42 Alkaline Phosphatase 61 Total Protein 4.7 L Albumin 2.2 L Globulin 2.5 Albumin/Globulin Ratio 0.9 L Assessment & Plan (1) Mass of upper lobe of right lung: Problem details: Pathology is still pending, though based on initial cytology we may be dealing with a neoplasm less treatable. This seems to be what oncology has proposed. So not unreasonable to pursue hospice and comfort care while we wait for the definitive diagnosis. Current visit: Yes Status: Acute (2) Pleural effusion on right: Problem details: Now has a new chest tube in place. Anticipating a PleurX, not sure if that is available here or whether this will require transfer, DD check local resources. Current visit: Yes Status: Acute (3) Acute respiratory failure: Problem details: Managing well on just 2 L. Qualifiers: Respiratory failure complication: Current visit: Yes Status: Acute (4) Anemia: Problem details: Upper little from yesterday but still quite low not prepared to transfuse just yet. Qualifiers: Anemia type: Iron deficiency anemia type: Vitamin B12 deficiency anemia type: Folate deficiency anemia type: Bone marrow failure anemia type : Hemolytic anemia type: Other causes of anemia: Chronic kidney disease stage: Current visit: Yes Status: Acute (5) Chest pain: Problem details: Can be an issue with movement. Mostly a chest tube site. Qualifiers: Chest pain type: Ischemic chest pain type: Current visit: Yes Status: Acute (6) Hypotension: Problem details: Stable Qualifiers: Hypotension type: Trimester: Current visit: Yes Status: Acute (7) Protein deficiency: Problem details: Diet continues to improve, encouraged same today. Current visit: Yes Status: Acute Plan: Assessment/Plan Narrative: Will consult hospice. That will entail likely a hospital bed in some other facilities for home including oxygen and of course staffing availability, so there might be some delay prior to discharge. Will continue to follow routine otherwise. Blank the back and forth with the patient including brother about status treatment emphasizing his wishes. More than 45 min spent in these discussions Quality VTE Deep Vein Thrombosis/Pulmonary Embolism Present on Admission: No
--- NOTE | 2018-08-07 09:44 | ONC.NAV ---
Description: Hospice Referral Activity: Dr. Kim met with pt late yesterday and discussed with pt/family what a plan for chemotherapy would look like, as well as the risks vs. benefit of chemo given his poor functional status. Pt was very clear in his decision to not have chemotherapy, and to go home with hospice services. This CONE BAKER MACHINE compiled pt's ONC notes and faxed them to hospice, as well as requested an info visit as soon as can be arranged. Discussed with hospice that the CONE BAKER MACHINE from Care Management will be the primary person coordinating this discharge plan moving forward.
--- NOTE | 2018-08-07 11:18 | PT.IPTN ---
Current Diagnoses Anemia, unspecified (07/22/18) Unspecified protein-calorie malnutrition (07/22/18) Nicotine dependence, unspecified, in remission (07/22/18) Other psychotic disorder not due to a substance or known physiological condition (07/22/18) Hypotension, unspecified (07/22/18) Pneumonia, unspecified organism (07/22/18) Pleural effusion, not elsewhere classified (07/22/18) Acute respiratory failure, unspecified whether with hypoxia or hypercapnia (07/22/18) Respiratory failure, unspecified, unspecified whether with hypoxia or hypercapnia (07/22/18) Hiccough (07/22/18) Chest pain, unspecified (07/22/18) Localized swelling, mass and lump, trunk (07/22/18) Other nonspecific abnormal finding of lung field (07/22/18) Surgery Performed Operation Date: 07/26/18 13:45 Actual Procedures p Bronchoscopy(Not Applicable) - Dk Hubbard MD s Chest Tube Placement(Right) - Dk Hubbard MD Operation Date: 07/30/18 14:00 Actual Procedures p Thoracoscopy - Dk Hubbard MD Physical Therapy Treatment Note M2 PT-IP Current Condition Start: 07/31/18 12:54 Freq: NEEDED Status: Active Protocol: Document 07/31/18 16:08 AB (Rec: 07/31/18 17:23 AB [id number]) Physical Therapy Current Condition Current Condition Evaluation Date 07/31/18 Treatment Diagnosis R upper lobe lung mass; generalized weakness Onset Date 07/22/18 Precautions Other Precautions chest tube; O2 sat, O2 at 2L/ min M3 PT-IP Subjective Start: 07/31/18 12:54 Freq: NEEDED Status: Active Protocol: Document 08/07/18 11:18 GGD (Rec: 08/07/18 11:18 GGD [id number]) Subjective Physical Therapy Visit Type Type Patient Refusal Notes Pt states he has a lot going on today. He would like to wait on therapy until tomorrow . Amount of Assist Needed 1 Person Assist Discharge Recommendations PT Discharge Recommendations Home with 24/ Assist Equipment Needed for Home Before will need a FWW Discharge
--- NOTE | 2018-08-07 16:29 | CM.DPC ---
DCP/continued: Received verbal referral from family requesting to see SENIOR SCRUM MASTER re: hospice consult. SENIOR SCRUM MASTER met with patient and brother/Jonathan whom is DPOA. Brother indicates that although family and patient have not given up hope they are aware that keeping patient comfortable is main priority. Per ONC/Marla patient told Dr. Alvarez that he wanted to be comfortable. Placed call to Esther at hospice and she will arrange informational visit with patient family tomorrow 08-08-18. Questions pertaining to hospice visit answered. Patient and family aware that CM department will continue to assist and finalize d/c plan. P: Anticipate home with hospice when medically stable. INGE Mcrae
[2018-08-07] MEDS: LACTATED RINGERS 1,000 ML 42 ML IV (16:31)
[2018-08-07] MEDS: CEFAZOLIN 2 GM/100 ML FROZ.PIGGY IV (16:54)
--- NOTE | 2018-08-07 16:59 | SUR.OPER ---
Chest tube removed; 1300ml fluid in drainage system.
--- NOTE | 2018-08-07 16:59 | PC.NURSE ---
Addendum entered by Tana Tsai R.N. 08/07/18 22:53: 1920 - Pt return from PACU. Anxious and mildly forgetful. Pt concerned about SCD's. States that they are making him claustrophobic. States there are midgets grabbing me. SCD's removed. Drsg to right chest with marked serosangenous drainage. Supportive family at bedside. 2199 - Student nurse and instructor changed drsg to right chest tube d/c site, drsg to pleurex drain CDI. 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 Pt very concerned with the potential for hallucination with patch as he and his brother report he experienced with Ativan administration. Pt strongly against further ativan administration. Educated to monitoring and transition to home meds. Original Note: 1610 - Pt off the floor to OR.
[2018-08-07] MEDS: BUPIVACAINE 0.5% W/ EPI (PF) VIAL 30 ML INJ (17:09)
--- NOTE | 2018-08-07 18:32 | P.OP_ITS ---
Operative Date/Time/Diagnoses Date of procedure: 08/07/18 Time of procedure: 18:27 Post-op diagnosis: same Procedure & Clinicians Procedure: Placement of thoracic PleurX catheter Same procedure as scheduled: Yes Indications: Patient desires discharge home with a catheter he can manage. Surgeon: Dk Hubbard Anesthesia Type: General Operative Notes Findings: Catheter in good position in the right chest. Anesthesiologist/anesthesia provider was requested for this operation due to the patient's inability to lie flat and perform the procedure due to his respiratory distress and the fact that it was more involved than just placing a chest tube. It was felt that general anesthesia would be the most effective way to place this catheter correctly. Closure Type: primary Specimen(s): none sent Prosthetic devices, grafts, tissues, transplants, or devices: PleurX catheter 15.5 Emirati Estimated Blood Loss (mL): 5 Blood products transfused: none Procedure in detail: Patient is placed supine on the operating room table after undergoing general LMA anesthesia. His chest tube was removed from his right chest and he was prepped and draped in the usual fashion. A small incision was made in the right lower chest lateral near the anterior axillary line. From this small incision that was approximately a cm in length I tunneled to the rib space above and entered the chest. I initially passed the catheter up and the guidewire but fluoroscopy revealed I was external to the chest. Therefore I inserted a stiffer dilating catheter and passed a wire through under fluoroscopy. This was clearly in the thoracic cavity. A small incision was made about 3 in from the 1st and a tunnel created through which I passed PleurX catheter. The cuff was placed just under the skin so that it was not visible. The stiff larger 16 Emirati dilator and introducer was passed over the guidewire watching with fluoroscopy. The dilator was removed leaving the introducer in place. The catheter was passed through it under direct vision. The catheter was secured at the cuff and with a and interrupted 2 0 silk suture. The skin was closed over the initial incision site with interrupted 4 0 Vicryl. I aspirated fluid for an air from the right chest. Dermabond was placed over the wounds at the exiting site of the catheter and at the 1st incision that was made. I then packed the old chest tube site with Xeroform and covered it with gauze. The patient had dressings applied and was extubated taken recovery area in good condition. Complications: none Condition: stable Disposition: PACU
[2018-08-07] MEDS: MORPHINE 10 MG/ML INJ 2 MG IV ×2 (18:53→19:03)
[2018-08-07] MEDS: DEXTROSE 5%-0.45% NS 1,000 ML 60 ML IV (19:20)
--- NOTE | 2018-08-07 19:25 | SUR.PHASEI ---
Pt transferred to room 212 via bed. Report given to GERALD Fajardo prior to transfer. Tana at bedside upon arrival to room 212; visualized pt's chest tube removal site and noted drainage on dressing and assessed pleurX catheter site together. Pt's vital signs stable. Respirations even, regular, unlabored on 6 L of O2 via NC.
[2018-08-07] MEDS: fentaNYL 25 MCG/PATCH TOP (22:05)
--- NOTE | 2018-08-07 22:36 | PC.NURSE ---
Soiled dressing removed. Surrounding skin is red, partially abraded, from previous dressing change due to adhesive removal. Vasoline gauze covering posterior incision was left in place. 2x2 gauze placed over anterior incision. Both incisions cover with ABD pad x2 and secured with paper tape.
[2018-08-08] VITALS (12 sets, daily range): BP systolic 95–111; BP diastolic 53–72; PULSE 82–96; RESP 12–22; TEMP 36.4–36.9; O2SAT 95–99
--- NOTE | 2018-08-08 00:43 | PC.NURSE ---
Addendum entered by Alma Dawn R.N. 08/08/18 06:31: Multiple lengthy conversations held with patient and brother and separately with brother throughout the night regarding options of hospice vs home without hospice, what happens if condition worsens while on hospice, etc. Brother expressing that he is not ready to have patient in hospice as he does not want to give up yet. Discussed that patient is lucid and the decision needs to be his but that hospice information visit will answer many of their questions and patient will be able to make an informed decision. Treatment at this time has not been defined as comfort care. Original Note: Patient is alert and oriented with slight SOB with conversation but not as anxious as last night. Currently is on 5L/min oxygen per HFNC with sat of 96%. Breath sounds remain diminished throughout left lobes. HRR. BP low at 91/61 but is asymptomatic. Denies nausea. BT present and abdomen is soft. Voiding per urinal; no dysuria, frequency or urgency. Is assisted by brother to stand at bedside to void. Independent with bed mobility. Chest tube site dressing (tube removed yesterday) is intact with serosanguinous drainage noted at lower posterior edge but no leakage through at this time. PleurX catheter dressing is CDI. States pain is located in right chest and is currently 3/10 and described as burning. Has Fentanyl patch on and NEEDLE PUNCH OPERATOR is infusing at 0.5mg/h continuous and patient aware he also can give himself demand NEEDLE PUNCH OPERATOR Morphine as needed. Spends much time asking questions/talking about impending and expectations when he returns home on hospice. Fall risk score is moderate; bed alarm is on. Brother is rooming in.
[2018-08-08] MEDS: MORPHINE PCA 30 MG/30 ML PCA.VIAL IV ×2 (06:00→13:43)
[2018-08-08] MEDS: DEXTROSE 5%-0.45% NS 1,000 ML 60 ML IV (07:00)
--- NOTE | 2018-08-08 08:57 | CM.DPNOTE ---
Reviewed chart this morning, with extra attention on the notes of Dr Kim and Marla Castro in Oncology. Met w/pt, his brother Jonathan and GERALD Calderon this morning at bedside. Hospice Info visit scheduled for 1500 today. Jonathan has dropped off numerous family members at the airport this morning. Pt very methodical and thoughtful in communicating his questions and concerns this morning and continues to want to return home w/family and hospice but concerns remain about DME and med needs in order to remain comfortable. Following closely for assist in coordination of a safe DC plan for this pt and family. INGE Velazquez
[2018-08-08] MEDS: ALBUTEROL 2.5 MG/3 ML NEB (ADULT) INH (11:00)
--- NOTE | 2018-08-08 14:12 | PC.NURSE ---
Patient and his brother had a lot of questions and concerns today about hospice and plans for managing at home. Meeting with hospice is arranged already for 1500 today. Patient denies pain at rest, but states he does have pain to the right side of his chest, sharp with movement and is adequately controlled by fentanyl patch and lock and dam operator as ordered. Dressing in place to old chest tube site with shadow drainage noted. Pleurex catheter to right chest with [address] closed. Contacted coordinator and then surgery for supplies for need to drain pleurex. Patient was very concerned that his pleurex drain had not been connected or drained since placed. Received telephone order from Dr. Hubbard to use 60cc luer lock syringe to suck out fluid and repeat as needed. 250cc serosangenous to bloody fluid removed, patient tolerated well, and reports feeling some relief afterwards. 1st unit of blood transfusion started and patient tolerating well. family at bedside. call light within reach.
--- NOTE | 2018-08-08 14:13 | P.PN_ITS ---
Subjective Date Patient Seen: 08/08/18 Time Patient Seen: 13:56 Interval history: At visit this morning pt's brother BRANDON Castillo, was with pt, and had several questions. He notes visiti by oncology 2 days ago, who indicated the condition may not be treatable, or at least without significant side effects, though the final path is not yet back. Jonathan's concern is that he may have been swayed by pt's tendency to be dramatic expressing desire to forgo tx and go home on hospice, and we had talked about this yesterday, with my feeling still too soon to give up. And Jonathan has reviewed some of the clinical information, noting eg a low red blood cell count and whether that contributes to pt's fatigue and should be treated. And then reviewing other aspects of care and whether decision to pursue hospice ends any further tx options if path suggests the possibility, certainly not. So a lengthy discussion of progress thus far, benefits and set backs, tried to get everyone on same page. Pt feels about same, a little more pain on side after the PleurX was places yesterday, but so far breathing has been stable, though remains very weak Exam Vital Signs (past 8 hours): - 08/08/18 08:00 08/08/18 11:01 08/08/18 13:15 Temperature 98.5 F 97.5 F L Pulse Rate 84 82 84 Respiratory Rate 20 12 20 Blood Pressure 100/53 L 101/63 Pulse Oximetry 97 99 96 08/08/18 13:34 08/08/18 13:44 Temperature 97.5 F L 98.3 F Pulse Rate 96 H 82 Respiratory Rate 20 22 Blood Pressure 101/63 95/59 L Pulse Oximetry Fraction of Inspired Oxygen 40 SaO2/FiO2 Ratio 4750 Oxygen Delivery Method Nasal Cannula Oxygen Flow Rate 5 Narrative Exam Narrative: Seems quit clear and engaged during above discussion, sitting up in bed. HEENT NCAT, neck benign, chest diminished right some rhonchi left. Abd soft NT ND nl BTs. Extr and neruo benign Objective Labs Result Diagrams: 08/07/18 05:58 08/07/18 05:58 Labs: Laboratory Results - last 24 hr 08/08/18 10:05 Blood Type O Positive Antibody Screen Negative Crossmatch See Detail Assessment & Plan (1) Mass of upper lobe of right lung: Problem details: Reviewed oncol note, and significance, again waiting for final path for definitive tx options Current visit: Yes Status: Acute (2) Pleural effusion on right: Problem details: Chest tube has been replaced by PleurX. will need training for home management Current visit: Yes Status: Acute (3) Acute respiratory failure: Problem details: Managing well on just 2 L. Qualifiers: Respiratory failure complication: Current visit: Yes Status: Acute (4) Pneumonia: Problem details: Improving. Will d/c abx Qualifiers: Pneumonia type: Aspiration pneumonia type: Laterality: Lung location: Current visit: Yes Status: Acute (5) Chest pain: Problem details: Ongoing issue, will need non-IV options for home, Hospice should help Qualifiers: Chest pain type: Ischemic chest pain type: Current visit: Yes Status: Acute (6) Anemia: Problem details: Given pending d/c feel boosting count a bit is in order, and family supports. So 2 u to transfus Qualifiers: Anemia type: Iron deficiency anemia type: Vitamin B12 deficiency anemia type: Folate deficiency anemia type: Bone marrow failure anemia type : Hemolytic anemia type: Other causes of anemia: Chronic kidney disease stage: Current visit: Yes Status: Acute (7) Protein deficiency: Problem details: Still OK with diet Current visit: Yes Status: Acute (8) Depression: Problem details: Feel this has been an issue, appropriately, with some waxing and waning, along with sense of hopelessness, consider tx. Current visit: Yes Status: Acute Plan: Assessment/Plan Narrative: Will transfuse, follow labs, pending hospice visit and d/c planning this after noon as we await path. Reviewed all options with afamily and pt in detail today. 60 minutes in family conference. Quality VTE Deep Vein Thrombosis/Pulmonary Embolism Present on Admission: No
[2018-08-08] MEDS: diazePAM 2 MG TABLET PO (17:23)
--- NOTE | 2018-08-08 18:24 | PC.NURSE ---
Addendum entered by Isela Brunner R.N. 08/08/18 21:53: Relatively uneventful evening. Denies discomfort. IVF continue as per orders. PleurX tube intact, drained 500cc. Call light w/in reach, bed alarm on for pt safety. Continue w/plan of care. Original Note: Pt visiting w/family. Denies discomfort SOB w/exertion, SpO2 98% on 5L O2 PRBC's infusing as per orders. Med w/Valium for anxiety w/good results. Pt PleurX tube drained for 100cc red content. Call light w/in reach.
--- NOTE | 2018-08-08 19:32 | PM.PNPO.1 ---
Subjective Date Patient Seen: 08/08/18 Time Patient Seen: 19:33 Interval history: Postop day 1 from placement of a PleurX catheter in his right thoracic cavity. Feeling a bit short of breath. Exam Vital Signs (past 8 hours): - 08/08/18 13:15 08/08/18 13:34 08/08/18 13:44 Temperature 97.5 F L 97.5 F L 98.3 F Pulse Rate 84 96 H 82 Respiratory Rate 20 20 22 Blood Pressure 101/63 101/63 95/59 L Pulse Oximetry 96 08/08/18 17:01 08/08/18 17:02 08/08/18 17:23 Temperature 98.5 F 98.5 F 97.9 F Pulse Rate 88 88 83 Respiratory Rate 20 20 22 Blood Pressure 106/58 L 106/58 L 111/61 Pulse Oximetry Fraction of Inspired Oxygen 40 SaO2/FiO2 Ratio 4750 Oxygen Delivery Method Nasal Cannula Oxygen Flow Rate 5 Narrative Exam Narrative: A right alert. Aspirated about 500 cc of bloody fluid. Demonstrated to his brother how all of this is done. His brother took over the process so he knew how to do it when the patient goes home. Objective Labs Result Diagrams: 08/07/18 05:58 08/07/18 05:58 Labs: Laboratory Results - last 24 hr 08/08/18 10:05 Blood Type O Positive Antibody Screen Negative Crossmatch See Detail Assessment & Plan Post-op Postoperative Procedures Operation Date: 07/26/18 13:45 Actual Procedures Side Surgeon p Bronchoscopy Not Applicable Dk Hubbard MD s Chest Tube Placement Right Dk Hubbard MD Operation Date: 07/30/18 14:00 Actual Procedures Side Surgeon p Thoracoscopy Dk Hubbard MD Operation Date: 08/07/18 16:00 Actual Procedures Side Surgeon p Placement PleurX peritoneal catheter to drain fluid Dk Hubbard MD Postoperative status narrative: Path still pending. Fentanyl patch seems to be helping the patient. He is using about 16 mg of morphine a shift. Postoperative plan narrative: Continue fentanyl patch. Discharge planning in the works. Quality VTE Deep Vein Thrombosis/Pulmonary Embolism Present on Admission: No
[2018-08-09] MEDS: diazePAM 2 MG TABLET PO (01:26)
--- NOTE | 2018-08-09 01:45 | PC.NURSE ---
Addendum entered by Alma Dawn R.N. 08/09/18 07:06: Patient states pain well controlled at 1/10 at rest and 3/10 with movement. Chest tube site dressing changed as dressing saturated with sanguinous drainage. Site appears without signs of infection although skin surrounding openings is abraded from previous dressing changes; tolerated dressing change well. Does not feel he needs PleurX catheter drained as not significantly SOB at this time. Original Note: Patient alert and oriented but having increased anxiety. At shift change denied pain and decided not to have contnuous DOPING SUPERVISOR infusion started. Now states pain has gotten much worse, FLACC 5, and so continuous infusion at 0.5mg/h started and patient reminded he can still give demand doses. Breath sounds diminished throughout right more than left and has some late expiratory wheezes; oxygen at 5L/min with sat of 94%. HRR. Denies nausea. BT present and abdomen is soft. Voiding per urinal and denies dysuria, frequency or urgency. Independent with bed mobility. Due to generalized weakness is assisted to stand at edge of bed to void. Dressing to chest/around PleurX catheter are intact with some sanguinous shadow drainage noted but has no leakage. Removed chest fluid via PleurX catheter prior to shift change and drainage is sanguinous in appearance. Refusing SCD's due to feeling of being tied down. Due to anxiety agreeable to taking Valium and then staff stayed in room 1:1 until patient stated he was feeling calmer and more relaxed; will continue to check on him frequently as brother in room is asleep.
[2018-08-09] MEDS: DEXTROSE 5%-0.45% NS 1,000 ML 60 ML IV ×2 (04:21→20:23)
[2018-08-09 04:50] VITALS: BP 115/75; PULSE 84; RESP 18; TEMP 36.4; O2SAT 99
[2018-08-09] MEDS: MORPHINE PCA 30 MG/30 ML PCA.VIAL IV ×2 (06:20→22:40)
[2018-08-09 07:14] LABS: Add Manual Diff / Slide Review NO; Basophils Absolute Auto 100 /uL (0-100); Basophils Percent Auto 0.6 % (0-2); Eosinophils Absolute Auto 200 /uL (0-450); Eosinophils Percent Auto 1.4 % (2-4); Hematocrit 30.8 % (41-53); Hemoglobin 10.1 g/dL (13.5-17.5); Lymphocytes Absolute Auto 1100 /uL (1100-4500); Lymphocytes Percent Auto 9.1 % (25-40); Mean Corpuscular HGB Conc 32.8 % (30-36); Mean Corpuscular Hemoglobin 29.9 PG (26-34); Mean Corpuscular Volume 91.1 fL (80-100); Monocytes Absolute Auto 1400 /uL (0-900); Monocytes Percent Auto 11.8 % (3-14); Neutrophils Absolute Auto 9000 /uL (1500-7000); Neutrophils Percent Auto 77.1 % (50-75); Platelet Count 450 X10^3/uL (150-400); Red Blood Cell Count 3.38 X10^6/uL (4.5-5.9); Red Cell Distribution Width 13.8 % (11.6-14.8); White Blood Cell Count 11.6 X10^3/uL (4.5-11.0)
[2018-08-09 07:25] LABS: BUN Creatinine Ratio 7.5 (6-22); Blood Urea Nitrogen 6 mg/dL (9-20); Carbon Dioxide 32 mmol/L (22-32); Chloride 96 mmol/L (98-107); Estimated Glomerular Filt Rate > 60.0 mL/min (>60); Glucose 87 mg/dL (80-110); HEMOLYSIS < 15 (0-50); Potassium 4.1 mmol/L (3.4-5.1); Sodium 132 mmol/L (137-145)
[2018-08-09 08:00] VITALS: BP 127/67; PULSE 97; RESP 24; TEMP 36.8; O2SAT 99
[2018-08-09 08:53] VITALS: O2SAT 95
--- NOTE | 2018-08-09 09:13 | P.PN_ITS ---
Subjective Date Patient Seen: 08/09/18 Time Patient Seen: 09:03 Interval history: With brother Jonathan. Says he had a bit of a rough night. Breathing has been a little more difficult he is feeling more anxious. Yesterday we tried moving to Valium instead of lorazepam because of the possible hallucinations side effect of the latter. It started fairly light dose and I think that has not been sufficient. In fact given the amount of lorazepam that had been getting he might be experiencing some withdrawal. As Jonahtan points out he was doing really well with the Ativan for most of the hospitalization, we had backed off on that because of the possible side effect 1 night but it may have been something unrelated. Otherwise a few more questions, explained that we have hospice in place still be prepared to assume care tomorrow, a hospital bed and oxygen should be delivered today sometime. So should be considering home tomorrow. One issue is getting off of the current IV he is getting both fluids and RN CARDIAC CATH so need to see if we can change the RN CARDIAC CATH to an oral option. He is on a fentanyl patch which may be helping quite a bit so we should just need some oral option for breakthrough. And will do any lorazepam orally as well. They have been using the PleurX, and family is learning how to manage that at home Exam Vital Signs (past 8 hours): - 08/09/18 04:50 08/09/18 08:53 Temperature 97.6 F Pulse Rate 84 Respiratory Rate 18 Blood Pressure 115/75 Pulse Oximetry 99 95 Fraction of Inspired Oxygen 40 SaO2/FiO2 Ratio 4750 Oxygen Delivery Method High Flow Nasal Cannula Oxygen Flow Rate 5 Narrative Exam Narrative: Sitting up in bed seems a little anxious and struggling a bit more than recent to breathe. HEENT unremarkable neck is benign chest shows perhaps some decreased breath sounds further on the right, rhonchi on the left. Heart regular without murmur abdomen soft nontender nondistended normoactive bowel tones extremities benign neurologically nonfocal. Objective Labs Result Diagrams: 08/09/18 06:25 08/09/18 06:25 Labs: Laboratory Results - last 24 hr 08/08/18 08/09/18 08/09/18 10:05 06:25 06:25 WBC 11.6 H RBC 3.38 L Hgb 10.1 L Hct 30.8 L MCV 91.1 MCH 29.9 MCHC 32.8 RDW 13.8 Plt Count 450 H Neut % (Auto) 77.1 H Lymph % (Auto) 9.1 L [facility] % (Auto) 11.8 Eos % (Auto) 1.4 L Baso % (Auto) 0.6 Neut # (Auto) 9000 H Lymph # (Auto) 1100 [facility] # (Auto) 1400 H Eos # (Auto) 200 Baso # (Auto) 100 Sodium 132 L Potassium 4.1 Chloride 96 L Carbon Dioxide 32 BUN 6 L Creatinine 0.80 Estimated GFR > 60.0 BUN/Creatinine Ratio 7.5 Glucose 87 Calcium 8.0 L Blood Type O Positive Antibody Screen Negative Crossmatch See Detail Assessment & Plan (1) Mass of upper lobe of right lung: Problem details: Still no pathology, uncertain prognosis or treatment options. Current visit: Yes Status: Acute (2) Pleural effusion on right: Problem details: Chest tube has been replaced by PleurX. Family living at a managed will need a routine to stay ahead of fluid accumulation. Current visit: Yes Status: Acute (3) Acute respiratory failure: Problem details: Demand has increased most recently at 5 L think related to last item. Qualifiers: Respiratory failure complication: Current visit: Yes Status: Acute (4) Anxiety: Problem details: This has been I think relatively well managed with the lorazepam, I think the next issue is also a component here. I will resume the lorazepam stop the Valium, using an oral option hopefully that will have feeling a little more comfortable. Current visit: Yes Status: Acute (5) Depression: Problem details: Feel this has been an issue, appropriately, with some waxing and waning, along with sense of hopelessness, consider tx. Current visit: Yes Status: Acute (6) Protein deficiency: Problem details: Still OK with diet Current visit: Yes Status: Acute (7) Anemia: Problem details: Transfusion yesterday had a positive effect with appropriate change in H&H Qualifiers: Anemia type: Iron deficiency anemia type: Vitamin B12 deficiency anemia type: Folate deficiency anemia type: Bone marrow failure anemia type : Hemolytic anemia type: Other causes of anemia: Chronic kidney disease stage: Current visit: Yes Status: Acute (8) Chest pain: Problem details: Will switch to oral MS along with the fentanyl patch that should cover things pretty well. Qualifiers: Chest pain type: Ischemic chest pain type: Current visit: Yes Status: Acute Plan: Assessment/Plan Narrative: Lucian today mostly to become more portable with the oral options for medications, anticipating discharge tomorrow. Hospice is in place and they will be available tomorrow, bed should be delivered today along with oxygen. Then at from then on it just simply a matter of following up pathology whenever it arrives and looking to Oncology for their opinion of treatment options if any. 30 min spent with patient and family today. Quality VTE Deep Vein Thrombosis/Pulmonary Embolism Present on Admission: No
[2018-08-09] MEDS: LORazepam 2 MG/ML ORAL SOL 1 MG PO (11:38)
[2018-08-09] MEDS: MORPHINE 10 MG/0.5 ML ORAL SYRINGE PO ×3 (11:40→20:20)
--- NOTE | 2018-08-09 15:22 | PC.NURSE ---
Addendum entered by Linda Silver R.N. 08/09/18 16:09: Spoke with Radha with Hospice care at 1250 and again at 1405 for an update. Hospice will call tomorrow morning to see how pt's night went and if there is a possibility of pt discharging on sunday. Also they will let the staff know when they will be in to see pt and his brother Jonathan and bring in Chest Pleurex drain supplies to do teaching. Original Note: Day Shift- report rec'd from GERALD Verma at 1000. Pt very anxious, awaiting arrival of prn ativan oral solution. Ativan and morphine prn given at 1140. Plan for VAMP MARKER used as breakthrough pain medication only. Pt and his brother Jonathan aware. At time of above meds given, VAMP MARKER total used was 6.5mg. And pt did not use any further during this shift. Pt reported 3/10 pain to Pluerex catheter site and 3-5/10 to right flank site of old chest tube. Slightly nauseated around 1130, settled after prn ativan. IVF infusing well to [facility] PICC.
--- NOTE | 2018-08-09 15:37 | CM.DPNOTE ---
Worked on DCP throughout the day. Started by discussing pain/symptom management w/Dr Fam this morning. Dr Fam thinks Sunday DC will be reasonable and pt will begin a trial of po meds today. Contacted Yenni at [facility] throughout the day; discussed Sunday or Sunday DC based on pt's pain management on po meds. All DME being delivered to pt's home today to include extra long bed, mattress, bedside table, O2, w/c, commode and possibly shower chair if needed. Neb machine will also be obtained. Then had lengthy conversation w/pt and his brother Jonathan at bedside. We reviewed DCP, home w/Hospice either Sunday or Sunday depending on how the trial of po meds goes today. Pt and Jonathan described in detail the process of draining the fluid from the Pleurix cath, they asked about supplies. pt made clear to this CLOTH SHADER that the methodical process of draining this fluid multiple times daily is mandatory because it allows him to breath; he understands he will inevitably , even with the draining process, but he does not want to stop this process and just use medication to ease air hunger and anxiety. Jonathan agrees this has become part of pt's quality of life. Relayed above to Yenni at [facility] and asked about supplies for the maintenance of the Pleurix cath ? Yenni inevitably coordinated w/her nursing staff and arranged GERALD Casillas to visit Sunday w/pt and family to discuss/ teach their method for draining this fluid. P: Tentative plan is now home Sunday w/Hospice and family support. Still awaiting confirmation tonight/tomorrow that pt will have proper symptom management w/po meds. Following closely. Pina Shane MSW
[2018-08-09 15:56] VITALS: BP 103/60; PULSE 79; RESP 17; TEMP 36.8; O2SAT 94
[2018-08-09 20:40] VITALS: BP 95/59; PULSE 83; RESP 16; TEMP 36.7; O2SAT 96
[2018-08-09 23:59] VITALS: BP 100/54; PULSE 89; RESP 20; TEMP 36.6; O2SAT 95
[2018-08-10] MEDS: MORPHINE 10 MG/0.5 ML ORAL SYRINGE PO ×3 (01:23→07:58)
[2018-08-10 03:46] VITALS: BP 122/74; PULSE 96; RESP 22; TEMP 36.8; O2SAT 99
--- NOTE | 2018-08-10 04:31 | PC.NURSE ---
shift nurse manager 2330: Assumed care of pt with safe hand off. Safety checks done. Pt denies pain at this time. Pt sitting up in bed. Brother Jonathan is at bedside. Right chest drain is c/d/i. Chest tube insertion site is c/d/i and approximated. 0030: 150 ml of fluid pulled from right chest drain.
[2018-08-10 06:08] LABS: Alanine Aminotransferase 57 IU/L (21-72); Albumin 2.7 g/dL (3.5-5.0); Alkaline Phosphatase 73 U/L (38-126); Aspartate Aminotransferase 73 IU/L (17-59); BUN Creatinine Ratio 11.3 (6-22); Bilirubin Total 0.5 mg/dL (0.2-1.3); Blood Urea Nitrogen 9 mg/dL (9-20); Calcium 8.4 mg/dL (8.4-10.2); Carbon Dioxide 30 mmol/L (22-32); Chloride 95 mmol/L (98-107); Estimated Glomerular Filt Rate > 60.0 mL/min (>60); Globulin 2.8 g/dL (1.7-4.1); Glucose 98 mg/dL (80-110); HEMOLYSIS < 15 (0-50); Potassium 4.5 mmol/L (3.4-5.1); Sodium 131 mmol/L (137-145); Total Protein 5.5 g/dL (6.3-8.2)
[2018-08-10 06:18] LABS: Add Manual Diff / Slide Review NO; Basophils Absolute Auto 100 /uL (0-100); Basophils Percent Auto 0.4 % (0-2); Eosinophils Absolute Auto 100 /uL (0-450); Eosinophils Percent Auto 0.5 % (2-4); Hematocrit 32.4 % (41-53); Hemoglobin 10.9 g/dL (13.5-17.5); Lymphocytes Absolute Auto 900 /uL (1100-4500); Lymphocytes Percent Auto 5.5 % (25-40); Mean Corpuscular HGB Conc 33.6 % (30-36); Mean Corpuscular Hemoglobin 30.6 PG (26-34); Monocytes Absolute Auto 1700 /uL (0-900); Monocytes Percent Auto 10.1 % (3-14); Neutrophils Absolute Auto 14200 /uL (1500-7000); Neutrophils Percent Auto 83.5 % (50-75); Platelet Count 521 X10^3/uL (150-400); Red Blood Cell Count 3.57 X10^6/uL (4.5-5.9); Red Cell Distribution Width 13.6 % (11.6-14.8)
[2018-08-10 07:30] VITALS: BP 113/68; PULSE 83; RESP 19; TEMP 36.8; O2SAT 96; O2SAT 98
[2018-08-10] MEDS: fentaNYL 50 MCG/PATCH TOP (08:58)
[2018-08-10 12:07] VITALS: BP 110/80; PULSE 89; RESP 18; TEMP 36.8; O2SAT 97
--- NOTE | 2018-08-10 12:53 | PM.DS.1 ---
History of Present Illness Date Patient Seen: 08/10/18 Time Patient Seen: 09:31 Chief complaint: DIFFICULTY BREATHING Narrative: Please see history and physical Discharge Providers Date of admission: 07/22/18 16:24 Consults: 08/07/18 19:36 Consult to Discharge Planning Routine Comment: Discharge provider: Hal Nguyen MD Discharge Date: 08/10/18 Summary Discharge Diagnosis: Massive upper lobe right lung and mediastinum Pleural effusion right secondary to malignant disease Acute respiratory failure Pneumonia Chest pain Anemia Depression Hospital Course: Right upper lobe mass with mediastinal mass. Patient was admitted and concern for malignant process was relieved. He had previously had 6 L of fluid drawn off and that was sent to pathology. But was not adequate. Would watched for sometime and Oncology had consulted and after 1 week of not getting adequate response he was taken for bronchoscopy done no lesions in his lungs were noted biopsy was negative after waiting for that result we then did a mediastinal biopsy by Dr. Hubbard. Oncology re-evaluated earlier this week and after discussing treatment options although we still do not have definitive cells feels as if low probability of definitive treatment and hospice was consulted. Patient will be going home with hospice DNR and comfort care only. He will be in contact with surgeon and Dr. Fam in regards to the pathology in case there is some change in treatment Pleural effusion right secondary to malignant disease. Patient was putting out close to 1 L a day and was not surviving and doing well as an outpatient. He is brought in the hospital and we evaluated several options including transfer to get pleura dex after discussion with both surgeon and primary care a chest tube was placed. He continued to have almost 1 L a day discharge with was somewhat bloody. Overall feeling better once the tube was placed although pain control was difficult. He otherwise is was doing well after decision by Oncology that treatment was not in his best interest to a pleura dex was placed and over the last few days family and him were taught how to address this. He understands. Does not appear to be any other way of approaching but solid at this time. Acute respiratory failure. Secondary to pleural effusion. Improved but not resolved with chest tube. [place] to be compression of lung. No evidence of PE or other abnormality on CT scan. No evidence of significant infection ongoing. Will be discharged on oxygen. Pneumonia. Patient was initially felt to have pneumonia was placed on antibiotics was treated for 1 week and then discontinued. There was no evidence of infection and all was felt to be secondary to his pulmonary process. Anemia. Patient had persistent decrease in blood counts secondary to bloody pleural effusion. No evidence of other loss. Patient was transfused a few days prior to discharge just to make him as less fatigued as possible prior to discharge. Chest pain. Combination of tube placement and cancer. 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 He was eventually transferred to fentanyl 50 mcg patch sublingual morphine and Ativan. He will be followed by hospice on this as outpatient Depression. Patient was stable. Seemed to have pretty good approach went through the usual grief reactions but otherwise has no other changes. Exam Vital Signs (past 8 hours): - 08/10/18 07:30 Temperature 98.2 F Pulse Rate 83 Respiratory Rate 19 Blood Pressure 113/68 Pulse Oximetry 96 Fraction of Inspired Oxygen 40 SaO2/FiO2 Ratio 4750 Oxygen Delivery Method High Flow Nasal Cannula Oxygen Flow Rate 5 Narrative Exam Narrative: Alert male mildly fatigued with oxygen in no acute distress lungs decreased breath sounds right side heart regular rate and rhythm abdomen is benign Objective Labs Result Diagrams: 08/10/18 05:38 08/10/18 05:38 Labs: Laboratory Results - last 24 hr 08/10/18 08/10/18 05:38 05:38 WBC 17.0 H RBC 3.57 L Hgb 10.9 L Hct 32.4 L MCV 91.0 MCH 30.6 MCHC 33.6 RDW 13.6 Plt Count 521 H Neut % (Auto) 83.5 H Lymph % (Auto) 5.5 L [place] % (Auto) 10.1 Eos % (Auto) 0.5 L Baso % (Auto) 0.4 Neut # (Auto) 47059 H Lymph # (Auto) 900 L [place] # (Auto) 1700 H Eos # (Auto) 100 Baso # (Auto) 100 Sodium 131 L Potassium 4.5 Chloride 95 L Carbon Dioxide 30 BUN 9 Creatinine 0.80 Estimated GFR > 60.0 BUN/Creatinine Ratio 11.3 Glucose 98 Calcium 8.4 Total Bilirubin 0.5 AST 73 H ALT 57 Alkaline Phosphatase 73 Total Protein 5.5 L Albumin 2.7 L Globulin 2.8 Albumin/Globulin Ratio 1.0 Discharge Plan Discharge Plan Patient Disposition: Hospice - Home Discharge comment: Improved breathing after thoracentesis, needs transfer for definitive treatment, planning an implanted pleural draining device. Discharge Med Rec/Prescriptions Prescriptions: New fentanyl 50 mcg/hr Patch 72 Hour 50 mcg Topical Q72H Qty: 10 RF: 0 lorazepam [Lorazepam Intensol] 2 mg/mL Concentrate 1 mg PO Q1HR PRN (Reason: Anxiety) Qty: 60 RF: 0 morphine concentrate 20 mg/mL Syringe 10 mg PO Q2HR MDD 40 mg PRN (Reason: Pain, Severe (7-10)) 30 Days Qty: 50 RF: 0 Discontinued diazepam 5 mg tablet 5 mg PO Q6H PRN (Reason: muscle relaxation) RF: 0 Follow up/Referrals: Uriel Fam MD [Physician] - (will be followed by hospice) Provider Discharge Instructions Activity: as tolerated Skin/Wound/Dressing Care Report to your healthcare provider any signs of infection, such as:: chills, fever, night sweats, increased pain, unusual drainage and unusual redness Other wound treatment: as per surgeon Discharge Data Attending Provider: Uriel Fam Admit Date/Time: 07/22/18 16:24 Quality VTE Deep Vein Thrombosis/Pulmonary Embolism Present on Admission: No
[2018-08-10] MEDS: MORPHINE PCA 30 MG/30 ML PCA.VIAL IV (13:19)
--- NOTE | 2018-08-10 15:08 | CM.DPNOTE ---
DC order placed by Dr Nguyen this morning. Met w/pt and his brother Jonathan. Pt explained very adamantly that he needed to be home and did not want to spend another night in the hospital. Reviewed pain management regiment w/po meds, pt had a good night and had not needed his GRINDER GEAR. Jonathan admitted he would like to stay until Hospice could f/u in the morning but pt reiterated his wishes to leave the hospital and Jonathan wants to honor pt's wishes today. GERALD Casillas entered from [facility] to review draining process of pt's cath once home. Sonja also explained she would alert the evening nurse w/ [facility] that pt was going home and if family needed to call they could. Reviewed the logistics of pt returning home in detail w/pt and his brother. GERALD Vigil instrumental today in getting pt safely DC home w/his family. This [facility] updated Judith w/[facility] and faxed updated POLST, DC Summary and DC med list. P:Home w/family today, all DME in place including home O2, bed, etc. Pleurix Cath management by family and [facility] nursing staff, Hospice to f/u in the morning at pt's home. Pina Shane, [facility]
--- NOTE | 2018-08-10 15:49 | PC.NURSE ---
Discharge pt does have moments of SOB increased with anxiety. Medicated with SL morphine and encouraged focused breathing to help calm down which does help pt. Jonathan drained 200 ml from pleurex catheter this AM around 1100. Pt's son brought O2 tank from home that hospice had brought and pt left with this in place at 5L which is where he was set in the hospital. d/c instructions provided to pt and his brother Jonathan. Aware that hospice will be admitting pt tomorrow AM however they have agreed to answer any questions that Jonathan or anyone has this evening if need be. Also aware to contact Dr Fam's office if any additional issues as well. Rx were given to pt's brother to take to pharmacy to get filled. Fentanyl patch changed and increased today to 50 mcg patch. pt left with PICC line in place as brother stated this was the plan to keep it in place. left in w/c with POCKETED SPRING MACHINE OPERATOR escort to private vehicle.
--- NOTE | 2018-08-13 14:35 | ONC.NAV ---
Description: Care Coordination/Goals of Care Converstion Activity: T/C to family after Dr. Hubbard had received a call from (unknown) family members wanting to discuss potential treatment options. CITY MARSHAL shared that I had been in contact with hospice to clarify if pt was actually wanting to consider treatment again, or if he was intending to stay on hospice. This was the call information: CITY MARSHAL was able to speak with pt?s brother/DPOA, who is staying with Benjie to continue care coordination and care. He said that Benjie continues to make it very clear that he wants no treatment, and wants to remain comfortable on hospice. Vlad, the brother/DPOA, said that there have been extended family members from out of town who have been making calls and wanting Benjie to consider treatment. However, Benjie is also only within days of dying now. They just put in a rebolledo catheter, and have dialed in his pain meds to the point of Benjie finally feeling really comfortable and peaceful. I did relay that the pathology report is back as of 08/09, but did not disclose the results. I did encourage him to call and talk to Dr. Kim if they had questions about possible treatments, however Dr. Kim has already discussed the likelihood of pt being still very functionally compromised, and that his cancer is already very advanced. Benjie and Vlad felt that hospice continues to be the best fit for his needs, and they wanted me to relay how happy the family has been with everyone?s care here at [facility].
== END 2018-08-10 15:30 | disposition hospice, home (50) | DRG 120 ==
LOC: ED 12:41 → AC 16:29
PROVIDERS: Family Medicine; Specialist; Admitting Provider Family Medicine; Emergency Provider Emergency Medicine; Visit Provider Family Medicine
PROC: 0BJ08ZZ Inspection of Tracheobronchial Tree, Via Natural or Artificial Opening Endoscopic (ICD-10-PCS; CPT 31622; 2018-07-26 13:45)
PROC: 0W9930Z Drainage of Right Pleural Cavity with Drainage Device, Percutaneous Approach (ICD-10-PCS; CPT 32551; 2018-07-26 13:45)
PROC: 0BDN4ZX Extraction of Right Pleura, Percutaneous Endoscopic Approach, Diagnostic (ICD-10-PCS; principal; 2018-07-30 14:00)
PROC: 0B9 Respiratory System, Drainage (ICD-10-PCS; principal; 2018-08-07 16:00)
DX: C34.11 Malignant neoplasm of upper lobe, right bronchus or lung (principal); J96.00 Acute respiratory failure, unspecified whether with hypoxia or hypercapnia; J91.0 Malignant pleural effusion; J98.19 Other pulmonary collapse; I87.1 Compression of vein; I28.8 Other diseases of pulmonary vessels; E63.9 Nutritional deficiency, unspecified; R06.6 Hiccough; R44.3 Hallucinations, unspecified; Z87.891 Personal history of nicotine dependence; I95.9 Hypotension, unspecified; D64.9 Anemia, unspecified; F32.9 Major depressive disorder, single episode, unspecified; J18.9 Pneumonia, unspecified organism; G89.3 Neoplasm related pain (acute) (chronic)
CPT/HCPCS: 32551; 32555; 36415; 36430; 36573; 36591; 36592; 71045; 71260; 74177; 76000; 76604; 80048; 80053; 85025; 85610; 85730; 86850; 86900; 86901; 88305; 88331; 88341; 88342; 93005; 93010; 94640; 94760; 94762; 96374; 96375; 96376; 97110; 97116; 97163; 97530; 99233; 99285; 99291; P9016; J0330; J0690; J1100; J1200; J1644; J1650; J2060; J2250; J2270; J2405; J2704; J3010; J7613; Q9967

== ENCOUNTER → 2018-08-20 08:57 | Oncology outpatient (ONC) | payer OTHER, SELFPAY ==
[2018-07-22 16:35] VITALS: BMI 24.4
--- NOTE | 2018-08-15 16:22 | ONC.SCHED ---
Dr Fam called and wanted to speak with Dr. Kim. I told him he was off on and in [facility] tomorrow. He asked if this patient was scheduled yet and I confirmed he was seeing Dr. Kim Sunday which is Dr. Kim's first day back in [place].
[2018-08-20 09:30] VITALS: BP 102/56; PULSE 111; RESP 18; TEMP 36.6; O2SAT 98
--- NOTE | 2018-08-20 12:35 | P.PNONC_ITS ---
PN -Subjective Interval history: Diagnosis: SMARCA4-deficient lung cancer, stage IV Interval history: The patient is a 63-year-old man who returns today for follow-up. He was seen initially in the hospital. He had presented with chest wall pain and increasing shortness of breath. CT scan demonstrated a large mass in the central part of his chest as well as right-sided pleural effusion. Cytology from a thoracentesis was initially positive for malignancy although exact subtype could not be definitively determined. He eventually underwent a thoracoscopy with biopsy of larger piece of tissue. Subsequently, he had a PleurX catheter placed and was discharged from the hospital with hospice support. He has been relatively stable since his hospital discharge. He has consistently been getting out fluid from the right pleural space via the PleurX catheter. It is being drained 2 to 3 times a day an averaging about 300 cc per day output or perhaps slightly more. The patient notes that he has improvement in his shortness of breath after the fluid is drained although the benefit is relatively mild and short lasting. He has periods of shortness of breath particularly with exertion. There also exacerbated by lying down. He has been using a fentanyl patch and has morphine for breakthrough. He does get some relief from his anxie ty with Ativan but it tends to trigger nightmares or night terrors. He has been using trazodone as well as quetiapine. His appetite is poor. He denies any nausea or vomiting. His performance status has continued to decline in he finds getting out of the house into a car challenging. - Patient Self-Reported Symptoms SR Constitution: Fatigue/Malaise, Night Sweats SR respiratory issues: Shortness of breath, Difficulty breathing Home Medications and Allergies Home Medications Medication Instructions Recorded Confirmed Type fentanyl 50 mcg TOPICAL Q72H #10 ea 08/10/18 Rx morphine concentrate 10 mg PO Q2HR PRN 30 Days #50 each 08/10/18 Rx MDD 40 mg lorazepam [Lorazepam Intensol] 0.5 mg PO Q1HR PRN 08/20/18 08/20/18 History Allergies Allergy/AdvReac Type Severity Reaction Status Date / Time pollen extracts Allergy Unknown Verified 07/17/18 15:11 [POLLEN EXTRACTS] Iodinated Contrast- Oral and AdvReac Vomiting Verified 07/22/18 10:16 IV Dye Exam - Constitutional positive no acute distress, positive average body habitus, positive chronically ill appearing Comments: He is in a wheelchair in wearing oxygen. He is not further examined. Results - Imaging Additional studies: Procedures Drainage of Right Lower Lung Lobe with Drainage Device, Open Approach (07/22/18) Drainage of Right Pleural Cavity with Drainage Device, Percutaneous Approach (07/22/18) Extraction of Right Pleura, Percutaneous Endoscopic Approach, Diagnostic (07/22/18) Insertion of Infusion Device into Superior Vena Cava, Percutaneous Approach (07/22/18) Inspection of Tracheobronchial Tree, Via Natural or Artificial Opening Endoscopic (07/22/18) Transfusion of Nonautologous Red Blood Cells into Peripheral Vein, Percutaneous Approach (07/22/18) Assessment and Plan (1) Mass of upper lobe of right lung Problem details: Still no pathology, uncertain prognosis or treatment options. Current visit: No Status: Acute 63-year-old man with metastatic non-small cell lung cancer. Today, we reviewed the pathology report from his thoracoscopy. This showed SMARCA4-deficient lung cancer. This is a recently described entity that is sometimes described as a carcinoma and sometimes as a sarcoma. It tends to have an aggressive course. I a retrospective review of a adjuvant chemotherapy trial suggested improvement in survival with the use of cisplatin based adjuvant chemotherapy. I have not found any clinical trials regarding stage IV patients. The tumor was negative for mismatch repair deficiency suggesting that immunotherapy is not likely to be of benefit. PD L1 level was still pending. The patient's performance status currently is 3 or 4 on the ECOG scale. I do not think that he realistically could tolerate any therapy for his cancer. He would be at risk for potentially significant toxicity including alopecia, nausea and vomiting, cytopenias and risk for infection, kidney damage and neuropathy. The patient is satisfied with his hospice care and does not want to pursue any aggressive therapy. Likewise, given his poor performance status, I do not think that he is likely to tolerated. His condition is terminal. It is difficult to estimate likely survival. Average survival for patients with stage IV lung cancer and a poor performance status is in the range of 3 months or so. I suspect that the patient will have a shorter than average survival. He will continue with his current home care situation and hospice. I have not scheduled a follow-up appointment for him but would be happy see him again in the future should the need arise. 40 min was spent with the patient and his family, the majority in counseling.
== END ==
PROVIDERS: PCP Family Medicine
DX: C34.91 Malignant neoplasm of unspecified part of right bronchus or lung (principal)
CPT/HCPCS: 99215